=== PATIENT | female | born 1975 | race Caucasian/White ===

== ENCOUNTER 2020-02-01 10:25 | Inpatient (IN) | payer MEDICAID, SELFPAY ==
[2020-02-01] VITALS (12 sets, daily range): BP systolic 126–139; BP diastolic 70–89; PULSE 71–87; RESP 16–18; TEMP 36.4–37.1; O2SAT 92–100; BMI 32.1
--- NOTE | 2020-02-01 10:44 | W.ED.WEAKNES ---
Documented by User: SERGEY Carlisle 02/01/20 11:33 HPI - Weakness General: Chief complaint: Weakness Stated complaint: WEAKNESS N/V Time Seen by Provider: 02/01/20 10:36 History of Present Illness: HPI Narrative: Patient arrives via ambulance with complaint about leg and arm weakness. Says she thinks her potassium might be low. Has been nauseated she is not really vomiting. Says she is only been taking have her med because her thought me that was the cause of it and this been going on for the last 3 to 4 days. Complaint: generalized weakness Onset (ago): day(s) Duration: constant and progressively worsening Location: generalized Migration: none Severity: moderate Relieving factors: none Exacerbating factors: none Associated symptoms: Reports nausea; Denies chest pain, chills, easy bruising, fever(s) or headache(s) Review of Systems Const: Denies: fever(s), chills or body aches Eyes: Denies: change in vision or blurry vision ENMT: Denies: throat pain or nasal congestion Card: Denies: chest pain or dyspnea on exertion Resp: Denies: dyspnea, productive cough or non-productive cough GI: Reports: nausea Musc: Reports: muscle weakness; Denies: extremity pain Skin/Breast: Denies: rash Neuro: Denies: headache(s) Psych: Denies: anxiety or depression Lalo/Lymph: Denies: easy bruising PFSH ED PFSH: Medical History (Updated 02/01/20 @ 16:31 by Leonard Baker MD) Anxiety Back disorder Bipolar disorder Chronic back pain Depression Seizures Surgical History (Updated 02/01/20 @ 16:26 by Leonard Baker MD) H/O cervical spine surgery H/O knee surgery H/O shoulder surgery History of thyroid surgery Family History (Updated 02/01/20 @ 16:27 by Leonard Baker MD) Mother Cancer Breast cancer Father Arthritis Social History (Updated 02/01/20 @ 16:28 by Leonard Baker MD) Smoking and tobacco status: never smoked Alcohol intake: never Substance/Drug Use: never Household members: spouse Marital status: Number of children: 1 Female Reproductive History: Date of last menstrual period: 01/25/20 Physical Exam Const: COMMON NORMALS: no acute distress, average body habitus and patient oriented x3 HENMT: COMMON NORMALS: normocephalic HEAD & SCALP: normal to inspection and normocephalic FACE & SINUS: normal facial exam Eye: COMMON NORMALS: conjunctivae normal GENERAL EYE: appearance normal, both eyes and all related structures CONJUNCTIVA: Yes conjunctivae normal Neck/C-Spine: COMMON NORMALS: no JVD Chest: COMMONS NORMALS: normal inspection of the chest Resp: COMMON NORMALS: normal respiratory effort and clear to auscultation bilaterally AUSCULTATION: clear to auscultation bilaterally Cardio: COMMON NORMALS: no JVD, regular rate and regular rhythm RATE: regular rate RHYTHM: regular rhythm GI: COMMON NORMALS: Normal to inspection, nondistended, normoactive bowel sounds present Extremity: COMMON NORMALS: normal to inspection and full ROM Neuro: COMMON NORMALS: patient oriented x3, CN's II-XII intact bilaterally, moves all extremities and no focal motor deficits Course Vital Signs: Vital signs: Vital Signs Temperature 98.1 F 02/02/20 03:55 Pulse Rate 82 02/02/20 03:55 Respiratory Rate 16 02/02/20 03:55 Blood Pressure 97/64 02/02/20 03:55 Pulse Oximetry 97 02/02/20 03:55 MDM - Weakness Lab Data: Labs: Lab Results 02/01/20 02/01/20 02/01/20 Range/Units 09:31 09:31 09:31 WBC 6.6 (4.0-10.0) 10^3/ uL RBC 5.31 H (4.1-5.3) 10^6/u L Hgb 13.0 (11.5-15.3) g/dL Hct 40.3 (37.0-47.0) % MCV 75.9 L (81-99) fL MCH 24.5 L (28.0-34.0) pg MCHC 32.3 (30.0-36.0) g/dL RDW 22.0 H (12.1-15.1) % Plt Count 504 H (130-400) 10^3/c mm MPV 10.0 (7.4-10.4) fL Neut % (Auto) 62.6 % Lymph % (Auto) 19.8 % [place] % (Auto) 12.6 % Eos % (Auto) 3.6 % Baso % (Auto) 1.1 % Neut # (Auto) 4.14 (1.8-7.7) 10^3/u L Lymph # (Auto) 1.3 (0.8-4.8) 10^3/u L [place] # (Auto) 0.8 (0.2-0.9) 10^3/u L Eos # (Auto) 0.2 (0.0-0.8) 10^3/u L Baso # (Auto) 0.1 (0.0-0.1) 10^3/u L Nucleated RBC % (a uto) 0 % Nucleated RBCs # 0.0 /100WBC Sodium 136 (136-145) mmol/L Potassium 1.5 L* (3.5-5.1) mmol/L Chloride 104 (98-107) mmol/L Carbon Dioxide 15 L (22-29) mmol/L Anion Gap 18.5 (5-19) BUN 14 (6-20) mg/dL Creatinine 1.2 H (0.5-0.9) mg/dL GFR Calculation 49.0 L (90-130) mL/min Glucose 191 H (65-115) mg/dL Calculated Osmolal ity 283 L (285-295) mOsm/k g Calcium 9.6 (8.5-10.5) mg/dL Phosphorus (2.5-4.5) mg/dL Magnesium (1.7-2.3) mg/dL Total Bilirubin 0.3 (0.15-1.2) mg/dL AST 10 (0-32) U/L ALT 7 (0-33) U/L Alkaline Phosphata se 117 H (35-105) IU/L Total Protein 7.7 (6.6-8.7) g/dL Albumin 4.8 (3.5-5.2) g/dL Globulin 2.9 (1.3-4.6) g/dL Lipase 112 H (13-60) U/L TSH (0.27-4.20) uIU/ mL Free T4 (0.82-1.77) ng/d L 02/01/20 02/01/20 Range/Units 09:31 09:31 WBC (4.0-10.0) 10^3/ uL RBC (4.1-5.3) 10^6/u L Hgb (11.5-15.3) g/dL Hct (37.0-47.0) % MCV (81-99) fL MCH (28.0-34.0) pg MCHC (30.0-36.0) g/dL RDW (12.1-15.1) % Plt Count (130-400) 10^3/c mm MPV (7.4-10.4) fL Neut % (Auto) % Lymph % (Auto) % [place] % (Auto) % Eos % (Auto) % Baso % (Auto) % Neut # (Auto) (1.8-7.7) 10^3/u L Lymph # (Auto) (0.8-4.8) 10^3/u L [place] # (Auto) (0.2-0.9) 10^3/u L Eos # (Auto) (0.0-0.8) 10^3/u L Baso # (Auto) (0.0-0.1) 10^3/u L Nucleated RBC % (a uto) % Nucleated RBCs # /100WBC Sodium (136-145) mmol/L Potassium (3.5-5.1) mmol/L Chloride (98-107) mmol/L Carbon Dioxide (22-29) mmol/L Anion Gap (5-19) BUN (6-20) mg/dL Creatinine (0.5-0.9) mg/dL GFR Calculation (90-130) mL/min Glucose (65-115) mg/dL Calculated Osmolal ity (285-295) mOsm/k g Calcium (8.5-10.5) mg/dL Phosphorus 0.8 L* (2.5-4.5) mg/dL Magnesium 2.5 H (1.7-2.3) mg/dL Total Bilirubin (0.15-1.2) mg/dL AST (0-32) U/L ALT (0-33) U/L Alkaline Phosphata se (35-105) IU/L Total Protein (6.6-8.7) g/dL Albumin (3.5-5.2) g/dL Globulin (1.3-4.6) g/dL Lipase (13-60) U/L TSH 1.61 (0.27-4.20) uIU/ mL Free T4 1.16 (0.82-1.77) ng/d L EKG Data^: EKG 1: EKG interpretation date: 02/01/20 EKG interpretation time: 11:33 Interpretation: Normal sinus rhythm at 84 bpm PA interval is 142 ms QRS duration is 1 2 ms Discharge Plan Discharge Admit Provider: Leonard Baker Condition: Stable Discharge Date/Time: 02/01/20 14:03 Sign Out Sign Out Data: Patient Sign Out occurred on 02/01/20 at 13:57. Patient's care was discussed, and care was transferred from to Josafat Alfaro DO. 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 [employer] Fwd Exam Comprehensive Documented by User: Trey Pierson MD, [facility] [place] 02/01/20 23:06 HPI - Weakness General: Chief complaint: Weakness Stated complaint: WEAKNESS N/V Time Seen by Provider: 02/01/20 10:36 PFS ED PFSH: Medical History (Updated 02/01/20 @ 16:31 by Leonard Baker MD) Anxiety Back disorder Bipolar disorder Chronic back pain Depression Seizures Surgical History (Updated 02/01/20 @ 16:26 by Leonard Baker MD) H/O cervical spine surgery H/O knee surgery H/O shoulder surgery History of thyroid surgery Family History (Updated 02/01/20 @ 16:27 by Leonard Baker MD) Mother Cancer Breast cancer Father Arthritis Social History (Updated 02/01/20 @ 16:28 by Leonard Baker MD) Smoking and tobacco status: never smoked Alcohol intake: never Substance/Drug Use: never Household members: spouse Marital status: Number of children: 1 Course Vital Signs: Vital signs: Vital Signs Temperature 98.1 F 02/02/20 03:55 Pulse Rate 82 02/02/20 03:55 Respiratory Rate 16 02/02/20 03:55 Blood Pressure 97/64 02/02/20 03:55 Pulse Oximetry 97 02/02/20 03:55 MDM - Weakness Lab Data: Labs: Lab Results 02/01/20 02/01/20 02/01/20 Range/Units 09:31 09:31 09:31 WBC 6.6 (4.0-10.0) 10^3/ uL RBC 5.31 H (4.1-5.3) 10^6/u L Hgb 13.0 (11.5-15.3) g/dL Hct 40.3 (37.0-47.0) % MCV 75.9 L (81-99) fL MCH 24.5 L (28.0-34.0) pg MCHC 32.3 (30.0-36.0) g/dL RDW 22.0 H (12.1-15.1) % Plt Count 504 H (130-400) 10^3/c mm MPV 10.0 (7.4-10.4) fL Neut % (Auto) 62.6 % Lymph % (Auto) 19.8 % [place] % (Auto) 12.6 % Eos % (Auto) 3.6 % Baso % (Auto) 1.1 % Neut # (Auto) 4.14 (1.8-7.7) 10^3/u L Lymph # (Auto) 1.3 (0.8-4.8) 10^3/u L [place] # (Auto) 0.8 (0.2-0.9) 10^3/u L Eos # (Auto) 0.2 (0.0-0.8) 10^3/u L Baso # (Auto) 0.1 (0.0-0.1) 10^3/u L Nucleated RBC % (a uto) 0 % Nucleated RBCs # 0.0 /100WBC Sodium 136 (136-145) mmol/L Potassium 1.5 L* (3.5-5.1) mmol/L Chloride 104 (98-107) mmol/L Carbon Dioxide 15 L (22-29) mmol/L Anion Gap 18.5 (5-19) BUN 14 (6-20) mg/dL Creatinine 1.2 H (0.5-0.9) mg/dL GFR Calculation 49.0 L (90-130) mL/min Glucose 191 H (65-115) mg/dL Calculated Osmolal ity 283 L (285-295) mOsm/k g Calcium 9.6 (8.5-10.5) mg/dL Phosphorus (2.5-4.5) mg/dL Magnesium (1.7-2.3) mg/dL Total Bilirubin 0.3 (0.15-1.2) mg/dL AST 10 (0-32) U/L ALT 7 (0-33) U/L Alkaline Phosphata se 117 H (35-105) IU/L Total Protein 7.7 (6.6-8.7) g/dL Albumin 4.8 (3.5-5.2) g/dL Globulin 2.9 (1.3-4.6) g/dL Lipase 112 H (13-60) U/L TSH (0.27-4.20) uIU/ mL Free T4 (0.82-1.77) ng/d L 02/01/20 02/01/20 Range/Units 09:31 09:31 WBC (4.0-10.0) 10^3/ uL RBC (4.1-5.3) 10^6/u L Hgb (11.5-15.3) g/dL Hct (37.0-47.0) % MCV (81-99) fL MCH (28.0-34.0) pg MCHC (30.0-36.0) g/dL RDW (12.1-15.1) % Plt Count (130-400) 10^3/c mm MPV (7.4-10.4) fL Neut % (Auto) % Lymph % (Auto) % [place] % (Auto) % Eos % (Auto) % Baso % (Auto) % Neut # (Auto) (1.8-7.7) 10^3/u L Lymph # (Auto) (0.8-4.8) 10^3/u L [place] # (Auto) (0.2-0.9) 10^3/u L Eos # (Auto) (0.0-0.8) 10^3/u L Baso # (Auto) (0.0-0.1) 10^3/u L Nucleated RBC % (a uto) % Nucleated RBCs # /100WBC Sodium (136-145) mmol/L Potassium (3.5-5.1) mmol/L Chloride (98-107) mmol/L Carbon Dioxide (22-29) mmol/L Anion Gap (5-19) BUN (6-20) mg/dL Creatinine (0.5-0.9) mg/dL GFR Calculation (90-130) mL/min Glucose (65-115) mg/dL Calculated Osmolal ity (285-295) mOsm/k g Calcium (8.5-10.5) mg/dL Phosphorus 0.8 L* (2.5-4.5) mg/dL Magnesium 2.5 H (1.7-2.3) mg/dL Total Bilirubin (0.15-1.2) mg/dL AST (0-32) U/L ALT (0-33) U/L Alkaline Phosphata se (35-105) IU/L Total Protein (6.6-8.7) g/dL Albumin (3.5-5.2) g/dL Globulin (1.3-4.6) g/dL Lipase (13-60) U/L TSH 1.61 (0.27-4.20) uIU/ mL Free T4 1.16 (0.82-1.77) ng/d L Discharge Plan Discharge Admit Provider: Leonard Baker Condition: Stable Discharge Date/Time: 02/01/20 14:03 Sign Out Sign Out Data: Patient Sign Out occurred on 02/01/20 at 13:57. Patient's care was discussed, and care was transferred from to Josafat Alfaro DO. 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 [employer] Fwd Exam Comprehensive Documented by User: Josafat Alfaro DO 02/02/20 06:31 HPI - Weakness General: Chief complaint: Weakness Stated complaint: WEAKNESS N/V Time Seen by Provider: 02/01/20 10:36 PFSH ED PFSH: Medical History (Updated 02/01/20 @ 16:31 by Leonard Baker MD) Anxiety Back disorder Bipolar disorder Chronic back pain Depression Seizures Surgical History (Updated 02/01/20 @ 16:26 by Leonard Baker MD) H/O cervical spine surgery H/O knee surgery H/O shoulder surgery History of thyroid surgery Family History (Updated 02/01/20 @ 16:27 by Leonard Baker MD) Mother Cancer Breast cancer Father Arthritis Social History (Updated 02/01/20 @ 16:28 by Leonard Baker MD) Smoking and tobacco status: never smoked Alcohol intake: never Substance/Drug Use: never Household members: spouse Marital status: Number of children: 1 Course Vital Signs: Vital signs: Vital Signs Temperature 98.1 F 02/02/20 03:55 Pulse Rate 82 02/02/20 03:55 Respiratory Rate 16 02/02/20 03:55 Blood Pressure 97/64 02/02/20 03:55 Pulse Oximetry 97 02/02/20 03:55 MDM - Weakness MDM Narrative: Medical decision making narrative: Patient inadvertently assigned to me in the queue I did not see this patient or participate in her care Lab Data: Labs: Lab Results 02/01/20 02/01/20 02/01/20 Range/Units 09:31 09:31 09:31 WBC 6.6 (4.0-10.0) 10^3/ uL RBC 5.31 H (4.1-5.3) 10^6/u L Hgb 13.0 (11.5-15.3) g/dL Hct 40.3 (37.0-47.0) % MCV 75.9 L (81-99) fL MCH 24.5 L (28.0-34.0) pg MCHC 32.3 (30.0-36.0) g/dL RDW 22.0 H (12.1-15.1) % Plt Count 504 H (130-400) 10^3/c mm MPV 10.0 (7.4-10.4) fL Neut % (Auto) 62.6 % Lymph % (Auto) 19.8 % [place] % (Auto) 12.6 % Eos % (Auto) 3.6 % Baso % (Auto) 1.1 % Neut # (Auto) 4.14 (1.8-7.7) 10^3/u L Lymph # (Auto) 1.3 (0.8-4.8) 10^3/u L [place] # (Auto) 0.8 (0.2-0.9) 10^3/u L Eos # (Auto) 0.2 (0.0-0.8) 10^3/u L Baso # (Auto) 0.1 (0.0-0.1) 10^3/u L Nucleated RBC % (a uto) 0 % Nucleated RBCs # 0.0 /100WBC Sodium 136 (136-145) mmol/L Potassium 1.5 L* (3.5-5.1) mmol/L Chloride 104 (98-107) mmol/L Carbon Dioxide 15 L (22-29) mmol/L Anion Gap 18.5 (5-19) BUN 14 (6-20) mg/dL Creatinine 1.2 H (0.5-0.9) mg/dL GFR Calculation 49.0 L (90-130) mL/min Glucose 191 H (65-115) mg/dL Calculated Osmolal ity 283 L (285-295) mOsm/k g Calcium 9.6 (8.5-10.5) mg/dL Phosphorus (2.5-4.5) mg/dL Magnesium (1.7-2.3) mg/dL Total Bilirubin 0.3 (0.15-1.2) mg/dL AST 10 (0-32) U/L ALT 7 (0-33) U/L Alkaline Phosphata se 117 H (35-105) IU/L Total Protein 7.7 (6.6-8.7) g/dL Albumin 4.8 (3.5-5.2) g/dL Globulin 2.9 (1.3-4.6) g/dL Lipase 112 H (13-60) U/L TSH (0.27-4.20) uIU/ mL Free T4 (0.82-1.77) ng/d L 02/01/20 02/01/20 Range/Units 09:31 09:31 WBC (4.0-10.0) 10^3/ uL RBC (4.1-5.3) 10^6/u L Hgb (11.5-15.3) g/dL Hct (37.0-47.0) % MCV (81-99) fL MCH (28.0-34.0) pg MCHC (30.0-36.0) g/dL RDW (12.1-15.1) % Plt Count (130-400) 10^3/c mm MPV (7.4-10.4) fL Neut % (Auto) % Lymph % (Auto) % [place] % (Auto) % Eos % (Auto) % Baso % (Auto) % Neut # (Auto) (1.8-7.7) 10^3/u L Lymph # (Auto) (0.8-4.8) 10^3/u L [place] # (Auto) (0.2-0.9) 10^3/u L Eos # (Auto) (0.0-0.8) 10^3/u L Baso # (Auto) (0.0-0.1) 10^3/u L Nucleated RBC % (a uto) % Nucleated RBCs # /100WBC Sodium (136-145) mmol/L Potassium (3.5-5.1) mmol/L Chloride (98-107) mmol/L Carbon Dioxide (22-29) mmol/L Anion Gap (5-19) BUN (6-20) mg/dL Creatinine (0.5-0.9) mg/dL GFR Calculation (90-130) mL/min Glucose (65-115) mg/dL Calculated Osmolal ity (285-295) mOsm/k g Calcium (8.5-10.5) mg/dL Phosphorus 0.8 L* (2.5-4.5) mg/dL Magnesium 2.5 H (1.7-2.3) mg/dL Total Bilirubin (0.15-1.2) mg/dL AST (0-32) U/L ALT (0-33) U/L Alkaline Phosphata se (35-105) IU/L Total Protein (6.6-8.7) g/dL Albumin (3.5-5.2) g/dL Globulin (1.3-4.6) g/dL Lipase (13-60) U/L TSH 1.61 (0.27-4.20) uIU/ mL Free T4 1.16 (0.82-1.77) ng/d L Discharge Plan Discharge Admit Provider: Leonard Baker Condition: Stable Discharge Date/Time: 02/01/20 14:03 Sign Out Sign Out Data: Patient Sign Out occurred on 02/01/20 at 13:57. Patient's care was discussed, and care was transferred from to Josafat Alfaro DO. 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 [employer] Fwd Exam Comprehensive
--- NOTE | 2020-02-01 10:46 | XRR_ITS ---
PROCEDURE INFORMATION: Exam: XR Chest, 1 View Exam date and time: 02/01/2020 11:19 AM Age: 45 years old Clinical indication: Other: Weakness/n/v; Patient HX: C/O weakness, nausea and vomiting TECHNIQUE: Imaging protocol: XR of the chest Views: 1 view. COMPARISON: No relevant prior studies available. FINDINGS: Lungs: Lungs are well aerated without a focal area of consolidation. Pleural space: Unremarkable. No pleural effusion. No pneumothorax. Heart/Mediastinum: Unremarkable. No cardiomegaly. Bones/joints: Prior surgical fixation of the caudal aspect of the cervical spine. XR/XR chest 1V portable [id number] IMPRESSION: Lungs are well aerated without a focal area of consolidation.
--- NOTE | 2020-02-01 10:46 | ECG_ITS ---
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 Measurements Intervals [place] Rate: 84 P: 48 MS: 142 QRS: 17 QRSD: 110 T: 35 QT: 414 QTc: 490 Interpretive Statements SINUS RHYTHM NONSPECIFIC ST & T-WAVE ABNORMALITY No previous ECG available for comparison Electronically Signed On 02-02-2020 0:20:26 CDT by Joselito Carlisle M.D. [id number]
[2020-02-01 11:01] LABS: Basophils # 0.1 10^3/uL (0.0-0.1); Basophils % 1.1 %; Eosinophils # 0.2 10^3/uL (0.0-0.8); Eosinophils % 3.6 %; Hematocrit 40.3 % (37.0-47.0); Lymphocytes # 1.3 10^3/uL (0.8-4.8); Lymphocytes % 19.8 %; Mean Corpuscular HGB Conc 32.3 g/dL (30.0-36.0); Mean Corpuscular Hemoglobin 24.5 pg (28.0-34.0); Mean Corpuscular Volume 75.9 fL (81-99); Monocytes # 0.8 10^3/uL (0.2-0.9); Monocytes % 12.6 %; Neutrophils # 4.14 10^3/uL (1.8-7.7); Neutrophils % 62.6 %; Nucleated Red Blood Cells % 0 %; Platelet Count 504 10^3/cmm (130-400); Red Blood Count 5.31 10^6/uL (4.1-5.3); White Blood Count 6.6 10^3/uL (4.0-10.0)
[2020-02-01 11:26] LABS: Alanine Aminotransferase 7 U/L (0-33); Albumin Level 4.8 g/dL (3.5-5.2); Alkaline Phosphatase 117 IU/L (35-105); Anion Gap 18.5 (5-19); Aspartate Amino Transferase 10 U/L (0-32); Blood Urea Nitrogen 14 mg/dL (6-20); Calcium 9.6 mg/dL (8.5-10.5); Carbon Dioxide 15 mmol/L (22-29); Chloride 104 mmol/L (98-107); Globulin 2.9 g/dL (1.3-4.6); Glucose 191 mg/dL (65-115); Osmolality Calculated 283 mOsm/kg (285-295); Sodium 136 mmol/L (136-145); Total Bilirubin 0.3 mg/dL (0.15-1.2); Total Protein 7.7 g/dL (6.6-8.7)
[2020-02-01 11:36] LABS: Potassium 1.5 mmol/L (3.5-5.1)
[2020-02-01] MEDS: ondansetron 2 mg/ML SDV 2 mL 4 MG IVP (11:59)
[2020-02-01] MEDS: potassium chloride premix 40 MEQ/100 ML PREMIX 25 MEQ IV (11:59)
[2020-02-01 12:01] LABS: Lipase 112 U/L (13-60)
[2020-02-01 12:42] LABS: Magnesium 2.5 mg/dL (1.7-2.3)
[2020-02-01 12:46] LABS: Free T4 Free Thyroxine 1.16 ng/dL (0.82-1.77); Thyroid Stimulating Hormone 1.61 uIU/mL (0.27-4.20)
[2020-02-01 13:16] LABS: Phosphorus 0.8 mg/dL (2.5-4.5)
[2020-02-01 14:33] LABS: Add Urine Microscopic? YES; Bilirubin Urine Neg (NEGATIVE); Blood Urine 2+ (Negative); Glucose Urine UA Norm (Normal); Ketones Urine Negative (Negative); Leukocyte Esterase Urine Negative (Negative); Nitrate Urine Negative (Negative); Protein Urine 1+ (Negative); Specific Gravity, Urine 1.015 (1.005-1.030); Urine Appearance Clear (CLEAR); Urine Color Yellow (Yellow); Urobilinogen Urine Neg (Negative); pH Urine 6 (5-7)
[2020-02-01 14:34] LABS: Add Urine Culture? Yes; Bacteria Urine 1+; Squamous Epithelial Cell Urine 0-4 (0-5); WBC Urine 0-4 /hpf (0-5)
[2020-02-01 15:22] LABS: Urine Random Potassium 19 mmol/L
--- NOTE | 2020-02-01 16:16 | P.HP_ITS ---
Providers/Chief Complaint Admitting Physician: Leonard Baker MD Chief Complaint: WEAKNESS N/V History of Present Illness Mishel Kellogg is a 45 year old female presents to emergency department with generalized weakness, nausea and vomiting and right upper quadrant abdominal pain over the last 1 week. Reports that she had similar signs and symptoms 4 months ago when she was hospitalized in [place] and had severe hypokalemia. At that time Topamax felt to play a role and it was discontinued. She had upper endoscopy during that hospitalization but does not report any findings at that time. She did not have colonoscopy. There was a concern for GI bleed. Patient is menstruating and her last menstrual period was approximately 1 week ago. She had cholecystectomy previously performed along with tubal ligation. She has borderline bipolar disorder, depression and anxiety that being managed by Dr. Everett. She has history of grand mal seizure during time of severe urinary tract infection previously and she is taking Keppra since then. She is on oral opiate medications and reports that recently doctors have been tr emani to decrease amount she takes. In emergency department patient received 40 meq of potassium at 12 PM. Review of Systems Const: Denies: fever(s) or chills Eyes: Denies: change in vision ENMT: Denies: throat pain or change in hearing Card: Denies: chest pain, edema or lightheadedness Resp: Denies: dyspnea or productive cough GI: Reports: abdominal pain (Right upper quadrant constant, mild nagging pain.), nausea, vomiting and constipation (Reports that her last bowel movement was approximately 4 weeks ago.); Denies: dysphagia, diarrhea, hematochezia or melena : Denies: difficulty voiding Musc: Denies: joint pain or joint swelling Skin/Breast: Denies: rash or erythema Neuro: Denies: headache(s) or weakness in extremities Psych: Denies: depression or suicidal ideation Endo: Denies: excessive sweating Lalo/Lymph: Denies: easy bleeding or tender lymph nodes All/Imm: Denies: throat swelling Medications/Allergies Home Medications Medication Instructions Recorded Confirmed Last Taken Type baclofen 20 mg PO BID 02/01/20 02/01/20 01/31/20 History buspirone 5 mg PO TID 02/01/20 02/01/20 01/31/20 History diphenhydramine HCl [Benadryl] 50 mg PO Q4H PRN 02/01/20 02/01/20 01/31/20 History famotidine 20 mg PO BID 02/01/20 02/01/20 01/31/20 History gabapentin 200 mg PO BID 02/01/20 02/01/20 01/31/20 History hydromorphone 8 mg PO BID 02/01/20 02/01/20 01/31/20 History hydroxyzine pamoate [Vistaril] 50 mg PO TID PRN 02/01/20 02/01/20 Unknown History ibuprofen 1,600 mg PO BID PRN 02/01/20 02/01/20 01/31/20 History levetiracetam 500 mg PO BID 02/01/20 02/01/20 Unknown History levomilnacipran [Fetzima] 20 mg PO DAILY 02/01/20 02/01/20 01/31/20 History levothyroxine 150 mcg PO DAILY 02/01/20 02/01/20 01/31/20 History levothyroxine See Rx Instructions .ROUTE .COMPLEX 02/01/20 02/01/20 Unknown History meclizine 25 - 50 mg PO TID PRN 02/01/20 02/01/20 01/31/20 History morphine 15 mg PO Q12H PRN 02/01/20 02/01/20 01/31/20 History ondansetron HCl 8 mg PO Q6H PRN 02/01/20 02/01/20 02/01/20 History prazosin 2 mg PO BEDTIME 02/01/20 02/01/20 01/31/20 History quetiapine 300 mg PO BEDTIME 02/01/20 02/01/20 01/31/20 History rizatriptan [Maxalt] See Rx Instructions .ROUTE .COMPLEX 02/01/20 02/01/20 Unknown History Allergies Allergy/AdvReac Type Severity Reaction Status Date / Time haloperidol [From Haldol] Allergy Unknown Verified 02/01/20 11:24 hydroxyzine [From Vistaril] Allergy Unknown Verified 02/01/20 11:24 meperidine [From Demerol] Allergy Unknown Verified 02/01/20 11:24 midazolam [From Versed] Allergy Unknown Verified 02/01/20 11:24 olanzapine [From Zyprexa] Allergy Unknown Verified 02/01/20 11:24 prochlorperazine Allergy Unknown Verified 02/01/20 11:24 [From Compazine] promethazine Allergy Unknown Verified 02/01/20 11:24 anti-nausea meds except Allergy Unknown Uncoded 02/01/20 11:11 zofran PFSH Acute PFSH: Medical History (Updated 02/01/20 @ 16:31 by Leonard Baker MD) Anxiety Back disorder Bipolar disorder Chronic back pain Depression Seizures Surgical History (Updated 02/01/20 @ 16:26 by Leonard Baker MD) H/O cervical spine surgery H/O knee surgery H/O shoulder surgery History of thyroid surgery Family History (Updated 02/01/20 @ 16:27 by Leonard Baker MD) Mother Cancer Breast cancer Father Arthritis Social History (Updated 02/01/20 @ 16:28 by Leonard Baker MD) Smoking and tobacco status: never smoked Alcohol intake: never Substance/Drug Use: never Household members: spouse Marital status: Number of children: 1 Female Reproductive History: Date of last menstrual period: 01/25/20 Vitals/I&O/Wt Last Vital Signs Temp 98.4 F 02/01/20 15:30 Pulse 74 02/01/20 15:30 Resp 18 02/01/20 15:30 BP 137/89 02/01/20 15:30 Pulse Ox 92 02/01/20 15:30 02/01/20 02/01/20 02/01/20 06:59 14:59 22:59 Output Total 900 / 900 Balance -900 / -900 Weight last 48 hrs Weight 82.1 kg Physical Exam Const: COMMON NORMALS: no acute distress and patient oriented x3 OTHER: Lethargic with very dry mucous membranes. HENMT: COMMON NORMALS: normocephalic and atraumatic HEAD & SCALP: normocephalic and atraumatic Eye: COMMON NORMALS: EOMs intact bilaterally, conjunctivae normal and no scleral icterus CONJUNCTIVA: Yes conjunctivae normal Neck/C-Spine: COMMON NORMALS: no lymphadenopathy and no meningeal signs Lymph: LYMPHATIC: no lymphadenopathy noted Chest: COMMONS NORMALS: normal palpation of entire chest wall Resp: COMMON NORMALS: No use of accessory muscles and clear to auscultation bilaterally AUSCULTATION: clear to auscultation bilaterally Cardio: COMMON NORMALS: regular rate, regular rhythm and No murmurs present (Cardio) RATE: regular rate RHYTHM: regular rhythm OTHER: No lower extremity edema GI: COMMON NORMALS: Soft to palpation PALPATION: Yes Soft to palpation RECTAL EXAM: deferred OTHER: Tender at right upper quadrant. : COMMON NORMALS: Yes no CVA tenderness BLADDER/KIDNEY EXAM: Yes no CVA tenderness Back/Pelvis: COMMON NORMALS: no CVA tenderness and thoracic and lumbar spine normal to inspection Extremity: COMMON NORMALS: normal to inspection and capillary refill normal Neuro: COMMON NORMALS: patient oriented x3 and no focal motor deficits (But generally very weak) SENSORIUM/ORIENTATION: Yes alert MENINGEAL SIGNS: Yes no meningeal signs Psych: COMMON NORMALS: mental status grossly normal, Normal thought process present and cooperative THOUGHT PROCESS: Normal thought process present Skin: COMMON NORMALS: no rashes or lesions noted GENERAL SKIN EXAM: no rashes or lesions noted Data : 02/01/20 09:31 02/01/20 09:31 A&P Assessment and plan (1) Chronic back pain: Status: Acute (2) Microcytosis: Was most likely anemia just not apparent because of severe dehydration. Status: Acute (3) Dehydration: Status: Acute (4) Hypokalemia: Status: Acute (5) NSAID induced gastritis: Status: Acute (6) Hypophosphatemia: Status: Acute (7) Acute kidney injury: Status: Acute Additional A&P Information PLAN: Discontinue ibuprofen and start patient on high-dose PPI. I think NSAID induced gastritis is likely the reason of patient's decreased oral intake, nausea and vomiting leading to hypokalemia. We will give patient potassium phosphate along with LR IV hydration. Monitor urinary output. Initial anemia work-up. Reconcile medications and continue patient's opiate pain medications for chronic back pain. Physical and occupational therapy. Given significant microcytosis and concern for GI bleed will avoid Lovenox for now and use SCDs for DVT prophylaxis. Attestations Medical Necessity Statement*: Patient with severe hypokalemia and generalized weakness requires close inpatient monitoring and treatment. I expect patient will require more than 2 midnights. Time Spent in Patient Care: Greater than 35 minutes Coding Level of Care Code Acute Asset Specialist for [facility] Fwd Diagnoses Chronic back pain M54.9; G89.29 Microcytosis R71.8 Dehydration E86.0 Hypokalemia E87.6 NSAID induced gastritis K29.60; T39.395A Hypophosphatemia E83.39 Acute kidney injury N17.9
[2020-02-01] MEDS: lactated ringers 1,000 ML 75 ML IV (17:21)
[2020-02-01] MEDS: pantoprazole 40 mg SDV IVP (17:24)
[2020-02-01] MEDS: gabapentin 100 mg Capsule 200 MG PO (18:32)
[2020-02-01] MEDS: levETIRAcetam 500 mg Tablet PO (18:33)
[2020-02-01] MEDS: baclofen 10 mg Tablet 20 MG PO (18:33)
[2020-02-01] MEDS: sodium chloride 0.9% 1,000 ML 75 ML IV (21:05)
[2020-02-01] MEDS: quetiapine 300 mg Tablet PO (21:05)
[2020-02-01] MEDS: BuSPIRONE 5 mg Tablet PO (21:05)
[2020-02-01] MEDS: prazosin 1 mg Capsule 2 MG PO (21:05)
[2020-02-01] MEDS: sennosides 8.6 mg Tablet 17.2 MG PO (21:20)
[2020-02-02] VITALS (8 sets, daily range): BP systolic 97–128; BP diastolic 64–83; PULSE 82–87; RESP 16–20; TEMP 36.4–37; O2SAT 97–98
[2020-02-02] MEDS: pantoprazole 40 mg SDV IVP ×2 (05:39→18:27)
[2020-02-02 06:02] LABS: Basophils # 0.1 10^3/uL (0.0-0.1); Basophils % 0.7 %; Eosinophils # 0.2 10^3/uL (0.0-0.8); Eosinophils % 2.1 %; Hematocrit 31.9 % (37.0-47.0); Hemoglobin 10.2 g/dL (11.5-15.3); Lymphocytes # 1.4 10^3/uL (0.8-4.8); Lymphocytes % 16.4 %; Mean Corpuscular Hemoglobin 24.8 pg (28.0-34.0); Mean Corpuscular Volume 77.4 fL (81-99); Mean Platelet Volume 9.3 fL (7.4-10.4); Monocytes % 11.3 %; Neutrophils # 5.87 10^3/uL (1.8-7.7); Neutrophils % 69.3 %; Nucleated Red Blood Cells % 0 %; Platelet Count 404 10^3/cmm (130-400); Red Blood Count 4.12 10^6/uL (4.1-5.3); Red Cell Distribution Width 22.6 % (12.1-15.1); White Blood Count 8.5 10^3/uL (4.0-10.0)
[2020-02-02 06:33] LABS: Alanine Aminotransferase 6 U/L (0-33); Albumin Level 3.5 g/dL (3.5-5.2); Alkaline Phosphatase 84 IU/L (35-105); Anion Gap 12.8 (5-19); Aspartate Amino Transferase 9 U/L (0-32); Blood Urea Nitrogen 8 mg/dL (6-20); Calcium 7.2 mg/dL (8.5-10.5); Carbon Dioxide 14 mmol/L (22-29); Chloride 115 mmol/L (98-107); Globulin 2.7 g/dL (1.3-4.6); Glomerular Filtration Rate 78.3 mL/min (90-130); Glucose 124 mg/dL (65-115); Magnesium 2.2 mg/dL (1.7-2.3); Osmolality Calculated 287 mOsm/kg (285-295); Phosphorus 5.4 mg/dL (2.5-4.5); Sodium 140 mmol/L (136-145); Total Bilirubin 0.3 mg/dL (0.15-1.2); Total Protein 6.2 g/dL (6.6-8.7)
[2020-02-02 06:41] LABS: Potassium 1.8 mmol/L (3.5-5.1)
[2020-02-02 06:47] LABS: Folate Level 3.4 ng/mL (4.8-37.3)
[2020-02-02 06:49] LABS: 25 Hydroxy Vitamin D 14 ng/mL (30-100); Ferritin 9 ng/mL (15-150); Iron 18 ug/dL (37-145); Percent Saturation 6.2 % (20-50); Total Iron Binding Capacity 288 mcg/dl; Unsaturated Iron Binding 270 ug/dL (112-347); Vitamin B12 395 pg/mL (232-1245)
[2020-02-02] MEDS: BuSPIRONE 5 mg Tablet PO ×3 (08:45→21:21)
[2020-02-02] MEDS: gabapentin 100 mg Capsule 200 MG PO ×2 (08:45→18:25)
[2020-02-02] MEDS: levothyroxine 150 mcg Tablet PO (08:46)
[2020-02-02] MEDS: levETIRAcetam 500 mg Tablet PO ×2 (08:46→18:26)
[2020-02-02] MEDS: baclofen 10 mg Tablet 20 MG PO ×2 (08:46→18:24)
[2020-02-02] MEDS: sodium chloride 0.9% 1,000 ML 75 ML IV ×2 (10:32→23:19)
[2020-02-02] MEDS: potassium chloride premix 40 MEQ/100 ML PREMIX 25 MEQ IV ×3 (11:16→23:03)
--- NOTE | 2020-02-02 16:01 | P.PN_ITS ---
Subjective Subjective: Interval history: Patient reports doing better but still remains quite weak throughout. Denies shortness of breath, chest pain or abdominal pain. Her potassium continues to be low despite significant replacement. She has concurrent deficiency of iron, vitamin D, folic acid level. Patient has poor dentition but denies induced vomiting or previous diagnosis of bulimia. Vitals/I&O/Wt Last Vital Signs Temp 97.9 F 02/02/20 12:00 Pulse 84 02/02/20 12:00 Resp 20 H 02/02/20 12:00 BP 116/79 02/02/20 12:00 Pulse Ox 98 02/02/20 12:00 02/02/20 02/02/20 02/02/20 06:59 14:59 22:59 Intake Total 1387.5 / 1860.0 1221 / 1221 Output Total 800 / 1700 Balance 587.5 / 160.0 1221 / 1221 Weight last 48 hrs Weight 82.1 kg Physical Exam Const: COMMON NORMALS: no acute distress and patient oriented x3 Resp: COMMON NORMALS: normal respiratory effort and clear to auscultation bilaterally AUSCULTATION: clear to auscultation bilaterally Cardio: COMMON NORMALS: regular rate, regular rhythm and S2 normal heart sound present RATE: regular rate RHYTHM: regular rhythm HEART SOUNDS: S2 normal heart sound present OTHER: No lower extremity edema GI: COMMON NORMALS: Normal to inspection, nondistended, normoactive bowel sounds present, Soft to palpation and non-tender PALPATION: Yes Soft to palpation Neuro: COMMON NORMALS: patient oriented x3 and no focal motor deficits Data : 02/02/20 05:24 02/02/20 05:24 A&P Assessment and plan (1) Chronic back pain: Status: Acute (2) Microcytosis: Was most likely anemia just not apparent because of severe dehydration. Status: Acute (3) Dehydration: Status: Acute (4) Hypokalemia: Status: Acute (5) NSAID induced gastritis: Status: Acute (6) Hypophosphatemia: Status: Acute (7) Acute kidney injury: Status: Acute Additional A&P Information PLAN: Continue with PPI. Continue potassium replacement. Will give 1 dose of IV Venofer. Start patient on folic acid and vitamin D. Will obtain urine electrolytes including potassium. Gettleman syndrome is a possibility. Continue physical therapy. Attestations Medical Necessity Statement*: Patient with severe hypokalemia requires close inpatient monitoring and treatment. Time Spent in Patient Care: 16 - 35 minutes Coding Level of Care Code Acute Orthotic And Prosthetic Technician for g Fwd Diagnoses Chronic back pain M54.9; G89.29 Microcytosis R71.8 Dehydration E86.0 Hypokalemia E87.6 NSAID induced gastritis K29.60; T39.395A Hypophosphatemia E83.39 Acute kidney injury N17.9
--- NOTE | 2020-02-02 17:33 | PC.PT ---
Patient declined physical therapy evaluation today, and out of bed, ?2 attempts, states will try tomorrow.
[2020-02-02] MEDS: ergocalciferol (vitamin D2) 50,000 Unit Capsule 50000 UNIT PO (18:27)
[2020-02-02] MEDS: folic acid 1 mg Tablet PO (18:27)
[2020-02-02 19:04] LABS: Potassium, Radom Urine 9 mmol/L; Urine Creatinine 24 mg/dL (28-217); Urine Random Sodium 23 mmol/L
[2020-02-02 19:09] LABS: Urine Random Chloride 16 mmol/L
[2020-02-02 19:40] LABS: Total Protein, Random Urine 12.3 mg/dL (0.0-20.0)
[2020-02-02 20:37] LABS: Urea Nitrogen,Urine Random 79 mg/dL
[2020-02-02] MEDS: iron sucrose 200 MG in sodium chloride 0.9% (100 ml) 100 ML 220 MG IV (21:20)
[2020-02-02] MEDS: sennosides 8.6 mg Tablet 17.2 MG PO (21:21)
[2020-02-02] MEDS: quetiapine 300 mg Tablet PO (21:21)
[2020-02-02] MEDS: prazosin 1 mg Capsule 2 MG PO (21:21)
[2020-02-02] MEDS: morphine ER (12 HR) 15 mg Tablet PO (21:28)
[2020-02-02] MEDS: lidocaine 1% INJ 20 mL 5 ML IV (23:04)
[2020-02-03] VITALS (8 sets, daily range): BP systolic 103–136; BP diastolic 64–77; PULSE 64–92; RESP 18–20; TEMP 36.3–37; O2SAT 92–98
[2020-02-03] MEDS: lidocaine 1% INJ 20 mL 5 ML IV (03:59)
[2020-02-03] MEDS: potassium chloride premix 40 MEQ/100 ML PREMIX 25 MEQ IV ×5 (03:59→20:32)
[2020-02-03 04:57] LABS: Basophils % 0.6 %; Eosinophils # 0.2 10^3/uL (0.0-0.8); Eosinophils % 2.8 %; Hematocrit 27.6 % (37.0-47.0); Hemoglobin 8.7 g/dL (11.5-15.3); Lymphocytes # 1.9 10^3/uL (0.8-4.8); Lymphocytes % 28.8 %; Mean Corpuscular HGB Conc 31.5 g/dL (30.0-36.0); Mean Corpuscular Hemoglobin 24.7 pg (28.0-34.0); Mean Corpuscular Volume 78.4 fL (81-99); Mean Platelet Volume 9.3 fL (7.4-10.4); Monocytes # 0.8 10^3/uL (0.2-0.9); Monocytes % 11.5 %; Neutrophils # 3.66 10^3/uL (1.8-7.7); Nucleated Red Blood Cells % 0 %; Platelet Count 335 10^3/cmm (130-400); Red Blood Count 3.52 10^6/uL (4.1-5.3); Red Cell Distribution Width 23.2 % (12.1-15.1); White Blood Count 6.5 10^3/uL (4.0-10.0)
[2020-02-03 05:18] LABS: Alanine Aminotransferase < 5 U/L (0-33); Albumin Level 2.9 g/dL (3.5-5.2); Alkaline Phosphatase 71 IU/L (35-105); Anion Gap 11.5 (5-19); Aspartate Amino Transferase 11 U/L (0-32); Blood Urea Nitrogen 5 mg/dL (6-20); Calcium 6.8 mg/dL (8.5-10.5); Carbon Dioxide 15 mmol/L (22-29); Chloride 120 mmol/L (98-107); Globulin 2.2 g/dL (1.3-4.6); Glomerular Filtration Rate 91.3 mL/min (90-130); Glucose 96 mg/dL (65-115); Osmolality Calculated 294 mOsm/kg (285-295); Phosphorus 3.2 mg/dL (2.5-4.5); Sodium 144 mmol/L (136-145); Total Bilirubin 0.2 mg/dL (0.15-1.2); Total Protein 5.1 g/dL (6.6-8.7)
[2020-02-03] MEDS: pantoprazole 40 mg SDV IVP ×2 (05:28→16:06)
[2020-02-03 05:31] LABS: Potassium 2.5 mmol/L (3.5-5.1)
--- NOTE | 2020-02-03 08:09 | PC.OT ---
OT EVALUATION HELD K LEVEL IS CRITICAL. THERAPY EVALUATION CONTRAINDICATED AT THIS TIME.
[2020-02-03] MEDS: BuSPIRONE 5 mg Tablet PO ×3 (09:09→20:34)
[2020-02-03] MEDS: gabapentin 100 mg Capsule 200 MG PO ×2 (09:09→17:55)
[2020-02-03] MEDS: folic acid 1 mg Tablet PO ×2 (09:09→17:55)
[2020-02-03] MEDS: baclofen 10 mg Tablet 20 MG PO ×2 (09:09→17:54)
[2020-02-03] MEDS: levETIRAcetam 500 mg Tablet PO ×2 (09:10→17:55)
[2020-02-03] MEDS: levothyroxine 150 mcg Tablet PO (09:10)
--- NOTE | 2020-02-03 11:34 | P.PN_ITS ---
Subjective Subjective: Interval history: Patient reports further improvement. Denies shortness of breath or chest pain. Reports minimal right upper quadrant abdominal discomfort. Had no bowel movement yet but passes gas. Denies being nauseous. Tolerates clear fluids. Reports that she had upper endoscopy at [facility] in October this year and reports that there were no significant findings. Urine potassium is in normal range. She denies being on any diet. Potassium is improved and up to 2.5. Vitals/I&O/Wt Last Vital Signs Temp 98.1 F 02/03/20 11:22 Pulse 76 02/03/20 11:22 Resp 20 H 02/03/20 11:22 BP 130/64 02/03/20 11:22 Pulse Ox 93 02/03/20 11:22 02/02/20 02/03/20 02/03/20 22:59 06:59 14:59 Intake Total 680 / 1901 1538.75 / 3439.75 184.167 / 184.167 Output Total 2700 / 2700 880 / 3580 650 / 650 Balance -2020 / -799 658.75 / -140.25 -465.833 / -465.833 Physical Exam Const: COMMON NORMALS: no acute distress and patient oriented x3 Resp: COMMON NORMALS: normal respiratory effort and clear to auscultation bilaterally AUSCULTATION: clear to auscultation bilaterally Cardio: COMMON NORMALS: regular rate, regular rhythm and S2 normal heart sound present RATE: regular rate RHYTHM: regular rhythm HEART SOUNDS: S2 normal heart sound present OTHER: No lower extremity edema GI: COMMON NORMALS: Normal to inspection, nondistended, normoactive bowel sounds present, Soft to palpation and non-tender PALPATION: Yes Soft to palpation Neuro: COMMON NORMALS: patient oriented x3 and no focal motor deficits Data : 02/03/20 04:28 02/03/20 04:28 Micro: Microbiology 02/01/20 13:10 Urine Culture - Preliminary Urine,Clean Catch A&P Assessment and plan (1) Chronic back pain: Status: Acute (2) Microcytosis: Was most likely anemia just not apparent because of severe dehydration. Status: Acute (3) Dehydration: Status: Acute (4) Hypokalemia: Status: Acute (5) NSAID induced gastritis: Status: Acute (6) Hypophosphatemia: Status: Acute (7) Acute kidney injury: Status: Acute Additional A&P Information PLAN: Continue current monitoring and treatment and continue with replating potassium. 40 mEq every 4 hours for 4 more doses. Will start small dose spironolactone. Continue with physical therapy. Attestations Medical Necessity Statement*: Patient with severe hypokalemia requires close inpatient monitoring and treatment. Time Spent in Patient Care: 16 - 35 minutes Coding Level of Care Code Acute Sanitary Aide for [facility] Fwd Diagnoses Chronic back pain M54.9; G89.29 Microcytosis R71.8 Dehydration E86.0 Hypokalemia E87.6 NSAID induced gastritis K29.60; T39.395A Hypophosphatemia E83.39 Acute kidney injury N17.9
[2020-02-03] MEDS: spironolactone 25 mg Tablet 12.5 MG PO (12:02)
[2020-02-03] MEDS: sodium chloride 0.9% 1,000 ML 75 ML IV (12:03)
[2020-02-03] MEDS: morphine ER (12 HR) 15 mg Tablet PO (12:09)
[2020-02-03] MEDS: sennosides 8.6 mg Tablet 17.2 MG PO (20:35)
[2020-02-03] MEDS: prazosin 1 mg Capsule 2 MG PO (20:35)
[2020-02-03] MEDS: quetiapine 300 mg Tablet PO (20:35)
[2020-02-04] VITALS (7 sets, daily range): BP systolic 93–118; BP diastolic 65–79; PULSE 85–90; RESP 16–20; TEMP 36.6–37.1; O2SAT 96–98
[2020-02-04] MEDS: potassium chloride premix 40 MEQ/100 ML PREMIX 25 MEQ IV ×2 (00:07→03:27)
[2020-02-04] MEDS: sodium chloride 0.9% 1,000 ML 75 ML IV ×2 (01:40→14:55)
[2020-02-04 04:22] LABS: Basophils % 0.6 %; Eosinophils # 0.2 10^3/uL (0.0-0.8); Eosinophils % 3.1 %; Hematocrit 26.7 % (37.0-47.0); Hemoglobin 8.4 g/dL (11.5-15.3); Lymphocytes # 1.8 10^3/uL (0.8-4.8); Lymphocytes % 26.4 %; Mean Corpuscular HGB Conc 31.5 g/dL (30.0-36.0); Mean Corpuscular Hemoglobin 25.8 pg (28.0-34.0); Mean Corpuscular Volume 82.2 fL (81-99); Mean Platelet Volume 9.7 fL (7.4-10.4); Monocytes # 0.7 10^3/uL (0.2-0.9); Monocytes % 10.5 %; Neutrophils # 3.96 10^3/uL (1.8-7.7); Nucleated Red Blood Cells % 0 %; Platelet Count 316 10^3/cmm (130-400); Red Blood Count 3.25 10^6/uL (4.1-5.3); Red Cell Distribution Width 23.5 % (12.1-15.1); White Blood Count 6.7 10^3/uL (4.0-10.0)
[2020-02-04 05:02] LABS: Alanine Aminotransferase 7 U/L (0-33); Albumin Level 2.7 g/dL (3.5-5.2); Alkaline Phosphatase 70 IU/L (35-105); Anion Gap 9.5 (5-19); Aspartate Amino Transferase 19 U/L (0-32); Blood Urea Nitrogen 4 mg/dL (6-20); Calcium 7.1 mg/dL (8.5-10.5); Carbon Dioxide 15 mmol/L (22-29); Chloride 122 mmol/L (98-107); Creatinine Clr Calc Pharmacy 147.2191; Globulin 2.1 g/dL (1.3-4.6); Glomerular Filtration Rate 134.7 mL/min (90-130); Glucose 92 mg/dL (65-115); Magnesium 1.6 mg/dL (1.7-2.3); Osmolality Calculated 291 mOsm/kg (285-295); Phosphorus 2.3 mg/dL (2.5-4.5); Potassium 3.5 mmol/L (3.5-5.1); Sodium 143 mmol/L (136-145); Total Bilirubin 0.2 mg/dL (0.15-1.2); Total Protein 4.8 g/dL (6.6-8.7)
[2020-02-04] MEDS: pantoprazole 40 mg SDV IVP ×2 (05:37→16:24)
[2020-02-04] MEDS: spironolactone 25 mg Tablet 12.5 MG PO (09:14)
[2020-02-04] MEDS: levETIRAcetam 500 mg Tablet PO ×2 (09:14→17:14)
[2020-02-04] MEDS: gabapentin 100 mg Capsule 200 MG PO ×2 (09:14→17:14)
[2020-02-04] MEDS: BuSPIRONE 5 mg Tablet PO ×3 (09:15→21:23)
[2020-02-04] MEDS: levothyroxine 150 mcg Tablet PO (09:15)
[2020-02-04] MEDS: baclofen 10 mg Tablet 20 MG PO ×2 (09:15→17:14)
[2020-02-04] MEDS: folic acid 1 mg Tablet PO ×2 (09:15→17:14)
[2020-02-04] MEDS: magnesium sulfate premix 4 GM/100 ML PREMIX IV (09:18)
--- NOTE | 2020-02-04 09:22 | PC.OT ---
OT evaluation attempted this AM. Pt requested hold as she did not get much sleep last night. Will attempt again as able.
--- NOTE | 2020-02-04 09:34 | P.PN_ITS ---
Subjective Subjective: Interval history: Patient reports feeling better. Denies shortness of breath, chest pain or abdominal pain. Her potassium improved. Reports that she was able to walk yesterday but wants to stay for 1 more day and go home tomorrow. She absolutely denies self-induced vomiting. She denies any problems with her and feels safe to stay at home. Reports that she ra rely gets out of her house. Vitals/I&O/Wt Last Vital Signs Temp 98.0 F 02/04/20 07:30 Pulse 86 02/04/20 07:30 Resp 18 02/04/20 09:14 BP 94/68 02/04/20 07:30 Pulse Ox 98 02/04/20 07:30 02/03/20 02/04/20 02/04/20 22:59 06:59 14:59 Intake Total 1600 / 3099.167 1292.916 / 4392.083 Output Total 1200 / 1850 Balance 1600 / 2449.167 92.916 / 2542.083 Physical Exam Const: COMMON NORMALS: no acute distress and patient oriented x3 Resp: COMMON NORMALS: normal respiratory effort and clear to auscultation bilaterally AUSCULTATION: clear to auscultation bilaterally Cardio: COMMON NORMALS: regular rate, regular rhythm and S2 normal heart sound present RATE: regular rate RHYTHM: regular rhythm HEART SOUNDS: S2 normal heart sound present OTHER: No lower extremity edema GI: COMMON NORMALS: Normal to inspection, nondistended, normoactive bowel sounds present, Soft to palpation and non-tender PALPATION: Yes Soft to palpation Neuro: COMMON NORMALS: patient oriented x3 and no focal motor deficits Data : 02/04/20 03:42 02/04/20 03:42 Micro: Microbiology 02/01/20 13:10 Urine Culture - Preliminary Urine,Clean Catch A&P Assessment and plan (1) Chronic back pain: Status: Acute (2) Microcytosis: Was most likely anemia just not apparent because of severe dehydration. Status: Acute (3) Dehydration: Status: Acute (4) Hypokalemia: Status: Acute (5) NSAID induced gastritis: Status: Acute (6) Hypophosphatemia: Status: Acute (7) Acute kidney injury: Status: Acute Additional A&P Information PLAN: Continue spironolactone and give 80 mEq of K-Phos. Replete magnesium. Remove Castillo catheter and if continues to improve we will likely be able to dismiss patient home tomorrow. Attestations Medical Necessity Statement*: Patient with severe electrolyte abnormality requires close inpatient monitoring and treatment will deemed safe for discharge. Time Spent in Patient Care: less than 15 minutes Coding Level of Care Code Acute Butadiene Converter Helper for g Fwd Diagnoses Chronic back pain M54.9; G89.29 Microcytosis R71.8 Dehydration E86.0 Hypokalemia E87.6 NSAID induced gastritis K29.60; T39.395A Hypophosphatemia E83.39 Acute kidney injury N17.9
[2020-02-04] MEDS: morphine ER (12 HR) 15 mg Tablet PO ×2 (10:58→23:21)
--- NOTE | 2020-02-04 11:24 | PC.CHAP ---
Pastoral Care Encounter/Spiritual Assessment Type of Contact [] Declined roller turner visit [] Patient/Family/Request visit [] Outpatient visit [] Follow-up visit [] Physician referral [] Code/Alert [X] Routine visit [] Staff referral [] Actively dying [] Patient sleeping [] Family support [] [] Out of room [] Palliative care [] [] Receiving care in room [] Pre-surgical visit [] Trauma [] Long length of stay [] ICU visit [] Other: Relational/Emotional Strength [] Patient feels connected with others/family/visitors/staff [] Distress [] Loneliness/isolation [] Abandonment Spirituality of Patient [] Person of Jennifer [] Attends Hinduism of their Jennifer [] Believes in Prayer [] Reads Bible or Latter-Day materials [] There are Spiritual issues to be addressed Wound Nurse Interventions [] Prayer [] Active listening [X] Non-anxious presence [] Spiritual/emotional support [] Crisis/trauma care [] Spiritual counseling [] Bereavement support [] Provided bereavement packet [] Provided Bible/devotional materials [] Provided toy/stuffed animal, coloring book to patient or family member [] Provided Communion [] Anointing/[place] [] Salvation [] Completed spiritual assessment [X] Other: See notes at bottom of page Impact on Illness or Injury [] Angry [] Fearful [] Anxious [] Often cries [] Exhaustion [] Unable to work [] Unable to attend protestant [] Unable to walk/stand [] Unable to read [] Unable to drive [] Unable to eat/drink [] Unable to sleep [] Unable to be with family [] Patient intubated [] Other: Summary: I offered prayer but pt declined. Time spent with patient: <5 mins
[2020-02-04] MEDS: sennosides 8.6 mg Tablet 17.2 MG PO (21:22)
[2020-02-04] MEDS: prazosin 1 mg Capsule 2 MG PO (21:22)
[2020-02-04] MEDS: quetiapine 300 mg Tablet PO (21:23)
[2020-02-05] VITALS: BP 115/81; PULSE 98; RESP 17; TEMP 36.9; O2SAT 100
[2020-02-05 04:00] VITALS: BP 104/71; PULSE 88; RESP 18; TEMP 36.7; O2SAT 98
[2020-02-05] MEDS: sodium chloride 0.9% 1,000 ML 75 ML IV (04:04)
[2020-02-05] MEDS: pantoprazole 40 mg SDV IVP (04:42)
[2020-02-05 07:46] VITALS: BP 126/74; PULSE 78; RESP 18; TEMP 37; O2SAT 97
[2020-02-05] MEDS: levETIRAcetam 500 mg Tablet PO (09:08)
[2020-02-05] MEDS: spironolactone 25 mg Tablet 12.5 MG PO (09:08)
[2020-02-05] MEDS: baclofen 10 mg Tablet 20 MG PO (09:08)
[2020-02-05] MEDS: folic acid 1 mg Tablet PO (09:08)
[2020-02-05] MEDS: levothyroxine 150 mcg Tablet PO (09:08)
[2020-02-05] MEDS: BuSPIRONE 5 mg Tablet PO (09:09)
[2020-02-05] MEDS: gabapentin 100 mg Capsule 200 MG PO (09:09)
--- NOTE | 2020-02-05 09:34 | PC.OT ---
OT note: Pt completed screen including walking to sink, held to IV pole but reported she was told she would be going home with walker, no loss of balance. Washed hands at sink. Returned to bed. She reported her son typically helps with donning socks at home as she has had multiple knee surgeries. No OT recommended at this time as she declines further needs and reported she will be returning home with family assistance as prior to hospitalization.
--- NOTE | 2020-02-05 10:36 | PC.PT ---
Patient refused PT at this time 10am. Patient was seated in chair. Requested ice. PT will attempt again at a later time, as able.
[2020-02-05 11:26] LABS: Basophils % 0.5 %; Eosinophils # 0.2 10^3/uL (0.0-0.8); Eosinophils % 4.1 %; Hematocrit 30.5 % (37.0-47.0); Hemoglobin 9.3 g/dL (11.5-15.3); Lymphocytes # 1.1 10^3/uL (0.8-4.8); Mean Corpuscular HGB Conc 30.5 g/dL (30.0-36.0); Mean Corpuscular Hemoglobin 25.4 pg (28.0-34.0); Mean Corpuscular Volume 83.3 fL (81-99); Mean Platelet Volume 9.6 fL (7.4-10.4); Monocytes # 0.5 10^3/uL (0.2-0.9); Monocytes % 8.1 %; Neutrophils # 3.85 10^3/uL (1.8-7.7); Neutrophils % 67.9 %; Nucleated Red Blood Cells % 0 %; Platelet Count 332 10^3/cmm (130-400); Red Blood Count 3.66 10^6/uL (4.1-5.3); Red Cell Distribution Width 23.9 % (12.1-15.1); White Blood Count 5.7 10^3/uL (4.0-10.0)
[2020-02-05 11:36] LABS: Alanine Aminotransferase 10 U/L (0-33); Albumin Level 2.9 g/dL (3.5-5.2); Alkaline Phosphatase 83 IU/L (35-105); Anion Gap 9.1 (5-19); Aspartate Amino Transferase 18 U/L (0-32); Blood Urea Nitrogen 6 mg/dL (6-20); Calcium 7.7 mg/dL (8.5-10.5); Carbon Dioxide 16 mmol/L (22-29); Chloride 120 mmol/L (98-107); Globulin 2.3 g/dL (1.3-4.6); Glomerular Filtration Rate 91.3 mL/min (90-130); Glucose 128 mg/dL (65-115); Magnesium 1.8 mg/dL (1.7-2.3); Osmolality Calculated 291 mOsm/kg (285-295); Potassium 3.1 mmol/L (3.5-5.1); Sodium 142 mmol/L (136-145); Total Bilirubin 0.2 mg/dL (0.15-1.2); Total Protein 5.2 g/dL (6.6-8.7)
[2020-02-05 11:58] VITALS: BP 97/60; PULSE 93; RESP 18; TEMP 36.7; O2SAT 100
--- NOTE | 2020-02-05 12:44 | P.DS_ITS ---
Discharge Providers Date of Admission: 02/01/20 12:23 Date of Discharge: February 05, 2020 Attending Provider at Admission: Leonard Baker MD Attending Provider at Discharge: Leonard Baker MD Primary Care Provider: Brie Everett DO Diagnoses at Discharge Discharge Diagnosis (1) Chronic back pain: Status: Acute (2) Microcytosis: Status: Acute (3) Dehydration: Status: Acute (4) Hypokalemia: Status: Acute (5) NSAID induced gastritis: Status: Acute (6) Hypophosphatemia: Status: Acute (7) Acute kidney injury: Status: Acute Reason for Visit Reason for Visit: WEAKNESS N/V Hospital Course Discharge Summary: Patient with chronic arthritis and recent use of NSAIDs presents with severe nausea and vomiting due to highly suspected NSAID induced gastritis. Patient had severe electrolyte and vitamin abnormality. She was admitted and hydrated with fluids with electrolytes repleted. She gradually improved and this morning reports feeling much better and strong enough to be d ismissed home. This morning she is still slightly hypokalemic and we will increase spironolactone to 25 mg daily and add 3 times daily potassium 20 mEq. I will request blood work in several days to make sure her electrolytes remain in normal range. I will also request outpatient follow-up with nephrology service. We will give patient 40 mg Protonix twice daily and discussed with patient regarding importance to avoid any NSAIDs. Should patient clinically not improve please consider upper endoscopy for evaluation especially in view of her absorption issues. Patient has significant knee problem and frequently uses her cane. Reports that her mobility with much improved with a walker as she is frequently not ambulating due to concern of falling. Her physicians are aware of her knee problem. Wheeled walker will be prescribed. This morning she denies any lightheadedness or dizziness. She denies any chest pain or shortness of breath. Denies any abdominal pain or problems with bowel movement. Her nausea completely resolved and she tolerates oral intake well. She denies being depressed and feels safe at home where she lives with her and son. Physical Exam Const: COMMON NORMALS: no acute distress and patient oriented x3 Resp: COMMON NORMALS: normal respiratory effort and clear to auscultation bilaterally AUSCULTATION: clear to auscultation bilaterally Cardio: COMMON NORMALS: regular rate, regular rhythm and S2 normal heart sound present RATE: regular rate RHYTHM: regular rhythm HEART SOUNDS: S2 normal heart sound present OTHER: No lower extremity edema GI: COMMON NORMALS: Normal to inspection, nondistended, normoactive bowel sounds present, Soft to palpation and non-tender PALPATION: Yes Soft to palpation Neuro: COMMON NORMALS: patient oriented x3 and no focal motor deficits Discharge Data Data Completed and Pending: Completed Studies During Hospitalization Category Date Time Status XR chest 1V mila ble [id number] Stat Exams 02/01/20 10:46 Completed Pending at discharge Category Date Time Status Aldosterone Routi ne Lab 02/03/20 04:28 Received Complete Blood Co unt w/Auto AM LABS Lab 02/06/20 04:00 Ordered Complete Blood Co unt w/Auto AM LABS Lab 02/07/20 04:00 Ordered Complete Blood Co unt w/Auto AM LABS Lab 02/08/20 04:00 Ordered Comprehensive Met abolic Panel AM LA BS Lab 02/06/20 04:00 Ordered Comprehensive Met abolic Panel AM LA BS Lab 02/07/20 04:00 Ordered Comprehensive Met abolic Panel AM LA BS Lab 02/08/20 04:00 Ordered Labs from last 24 hours 02/05/20 02/05/20 10:55 10:55 WBC 5.7 RBC 3.66 L Hgb 9.3 L Hct 30.5 L MCV 83.3 MCH 25.4 L MCHC 30.5 RDW 23.9 H Plt Count 332 MPV 9.6 Neut % (Auto) 67.9 Lymph % (Auto) 19.0 [place] % (Auto) 8.1 Eos % (Auto) 4.1 Baso % (Auto) 0.5 Neut # (Auto) 3.85 Lymph # (Auto) 1.1 [place] # (Auto) 0.5 Eos # (Auto) 0.2 Baso # (Auto) 0.0 Nucleated RBC % (a uto) 0 Nucleated RBCs # 0.0 Sodium 142 Potassium 3.1 L Chloride 120 H Carbon Dioxide 16 L Anion Gap 9.1 BUN 6 Creatinine 0.7 GFR Calculation 91.3 Glucose 128 H Calculated Osmolal ity 291 Calcium 7.7 L Magnesium 1.8 Total Bilirubin 0.2 AST 18 ALT 10 Alkaline Phosphata se 83 Total Protein 5.2 L Albumin 2.9 L Globulin 2.3 Vitals: Last Vital Signs Temp 98.1 F 08/02/20 11:58 Pulse 93 02/05/20 11:58 Resp 18 02/05/20 11:58 BP 97/60 02/05/20 11:58 Pulse Ox 100 02/05/20 11:58 Discharge Plan Discharge Patient Disposition: Home Condition: Stable Prescriptions: New Senna Lax 8.6 mg Tablet 17.2 mg PO BEDTIME Qty: 30 RF: 0 acetaminophen 325 mg Tablet 650 mg PO Q6H PRN (Reason: Mild/Mod Pain Or Temp >/= 101) Qty: 60 RF: 0 spironolactone 25 mg Tablet 25 mg PO DAILY Qty: 60 RF: 0 folic acid 1 mg Tablet 1 mg PO BID Qty: 60 RF: 0 Vitamin D2 1,250 mcg (50,000 unit) Capsule 50,000 unit PO Q7D Qty: 4 RF: 0 Protonix [address] for susp in packet 40 mg PO BID Qty: 60 RF: 0 Klor-Con M20 20 mEq tablet,ER particles/crystals 20 meq PO TID Qty: 60 RF: 0 Continued buspirone 5 mg tablet 5 mg PO TID RF: 0 quetiapine 300 mg tablet 300 mg PO BEDTIME RF: 0 levetiracetam 500 mg tablet 500 mg PO BID RF: 0 ondansetron HCl 8 mg tablet 8 mg PO Q6H PRN (Reason: Nausea) RF: 0 hydromorphone 8 mg tablet 8 mg PO BID RF: 0 Maxalt 10 mg Tablet See Rx Instructions .ROUTE .COMPLEX RF: 0 Vistaril 50 mg Capsule 50 mg PO TID PRN (Reason: unknown) RF: 0 levothyroxine 75 mcg tablet See Rx Instructions .ROUTE .COMPLEX RF: 0 famotidine 20 mg tablet 20 mg PO BID RF: 0 meclizine 25 mg tablet 25 - 50 mg PO TID PRN (Reason: Nausea) RF: 0 baclofen 10 mg tablet 20 mg PO BID RF: 0 Benadryl 25 mg Capsule 50 mg PO Q4H PRN (Reason: unknown) RF: 0 levothyroxine 150 mcg tablet 150 mcg PO DAILY RF: 0 morphine 15 mg Tablet Extended Release 15 mg PO Q12H PRN (Reason: Pain) RF: 0 gabapentin 100 mg capsule 200 mg PO BID RF: 0 prazosin 2 mg Capsule 2 mg PO BEDTIME RF: 0 Fetzima 20 mg capsule,extended release 24 hr 20 mg PO DAILY RF: 0 Discontinued ibuprofen 800 mg tablet 1,600 mg PO BID PRN (Reason: unknown) RF: 0 Discharge Orders: Discharge Order (Routine); Ordered 02/05/20 Ordered By: Leonard Baker Other Ambulatory Orders: Comprehensive Metabolic Panel (Routine) Timeframe: 3 Days Facility: [facility] - Location: Lab - Main Lab Ordered By: Leonard Baker Magnesium (Routine) Timeframe: 3 Days Facility: [facility] - Location: Lab - Main Lab Ordered By: Leonard Baker DME: Walker (Order) Location: None Selected Ordered By: Leonard Baker Referrals: Brie Everett DO [Primary Care Provider] - 4-7 days Discharge Diet: Advance as tolerated Discharge Activity: Increase activity as tolerated Activity Restrictions/Additional Instructions: Please call your doctor or present to emergency department if your condition worsens or you develop diarrhea, lightheadedness, fatigue or see blood in your stool or black stool. Please keep blood pressure and heart rate log 3 times daily to present to primary care physician next visit for medication adjustment. Please note that you will need to have repeat lab work in several days prior to primary care physician follow-up. Discharge Attestations Time Spent in Discharge Care*: greater than 30 min Quality Metrics Clinical Quality Measures During this hospital stay, did patient experience: None Coding Level of Care Code Acute Lunchroom Worker for Von Fwd Exam Detailed Diagnoses Chronic back pain M54.9; G89.29 Microcytosis R71.8 Dehydration E86.0 Hypokalemia E87.6 NSAID induced gastritis K29.60; T39.395A Hypophosphatemia E83.39 Acute kidney injury N17.9
[2020-02-05] MEDS: morphine ER (12 HR) 15 mg Tablet PO (12:59)
[2020-02-05] MEDS: potassium chloride ER 10 mEq Tablet 40 MEQ PO (13:36)
[2020-02-05 14:36] VITALS: BP 97/60; PULSE 93; RESP 18; TEMP 36.7; O2SAT 100
== END 2020-02-05 14:53 | disposition home or self-care (01) | DRG 641 ==
LOC: ER 10:51 → MEDSURG 12:38
PROVIDERS: Family Medicine; Nurse Practitioner Family; Admitting Provider Internal Medicine; Family Provider Family Medicine; PCP Family Medicine; Visit Provider Internal Medicine
DX: E87.6 Hypokalemia (principal); N17.9 Acute kidney failure, unspecified; F41.8 Other specified anxiety disorders; G40.409 Other generalized epilepsy and epileptic syndromes, not intractable, without status epilepticus; Z79.899 Other long term (current) drug therapy; G89.29 Other chronic pain; M54.9 Dorsalgia, unspecified; D50.9 Iron deficiency anemia, unspecified; E86.0 Dehydration; K29.60 Other gastritis without bleeding; K29.70 Gastritis, unspecified, without bleeding; T39.395A Adverse effect of other nonsteroidal anti-inflammatory drugs [NSAID], initial encounter; E83.39 Other disorders of phosphorus metabolism; E53.8 Deficiency of other specified B group vitamins; M19.90 Unspecified osteoarthritis, unspecified site
CPT/HCPCS: 12345; 36415; 71045; 80053; 81001; 81003; 82088; 82306; 82436; 82570; 82607; 82728; 82746; 83540; 83550; 83690; 83735; 84100; 84133; 84156; 84300; 84439; 84443; 84540; 85025; 87086; 93005; 96375; 97161; 97530; 99284; C9113; J1756; J2405; J3475; J3480; J7030

== ENCOUNTER 2020-02-08 17:23 | Inpatient (IN) | payer MEDICAID, SELFPAY ==
[2020-02-08] VITALS (8 sets, daily range): BP systolic 120–158; BP diastolic 64–97; PULSE 94–114; RESP 14–20; TEMP 37.9–38.9; O2SAT 96–100; BMI 31.8
[2020-02-08] MEDS: sodium chloride 0.9% 1,000 ML 999 ML IV ×2 (17:43→21:40)
[2020-02-08 17:44] LABS: Basophils # 0.1 10^3/uL (0.0-0.1); Basophils % 0.3 %; Eosinophils # 0.1 10^3/uL (0.0-0.8); Eosinophils % 0.5 %; Hematocrit 32.8 % (37.0-47.0); Hemoglobin 9.9 g/dL (11.5-15.3); Lymphocytes # 0.4 10^3/uL (0.8-4.8); Lymphocytes % 2.5 %; Mean Corpuscular HGB Conc 30.2 g/dL (30.0-36.0); Mean Corpuscular Hemoglobin 25.3 pg (28.0-34.0); Mean Corpuscular Volume 83.7 fL (81-99); Mean Platelet Volume 10.5 fL (7.4-10.4); Monocytes # 1.2 10^3/uL (0.2-0.9); Monocytes % 7.4 %; Neutrophils # 14.73 10^3/uL (1.8-7.7); Neutrophils % 88.6 %; Nucleated Red Blood Cells % 0 %; Platelet Count 273 10^3/cmm (130-400); Red Blood Count 3.92 10^6/uL (4.1-5.3); Red Cell Distribution Width 22.5 % (12.1-15.1); White Blood Count 16.6 10^3/uL (4.0-10.0)
--- NOTE | 2020-02-08 17:44 | ED_ITS ---
HPI - Nausea/Vomiting/Diarrhea General: Chief complaint: Nausea/Vomiting/Diarrhea Stated complaint: N/V Time Seen by Provider: 02/08/20 17:29 History of Present Illness: HPI Narrative: This patient is a 45-year-old female presenting today with vomiting. She tells me that she was in the hospital from until Thursday. She said she was admitted due to low potassium. She says on Thursday she started vomiting and has been vomiting ever since. She said she has not really had problems like this before. She is not able to keep down her antinausea medicine that she has at home. She has had her gallbladder out years ago. No other abdominal surgeries. She does have arthritis and orthopedic issues. She denies fever or diarrhea. She does have a low-grade temp here. MD elicited complaint: nausea and vomiting Onset (ago): day(s) (3) Associated nausea: Yes Associated abdominal pain: Yes Location of pain: Diffuse Quality: aching Associated symtoms: Reports fatigue, malaise and nausea; Denies change in vision, chest pain or headache(s) Review of Systems General: Reports: 10 or more systems reviewed and unremarkable except in HPI and below Const: Reports: fatigue and malaise; Denies: fever(s) or chills Eyes: Denies: change in vision ENMT: Denies: odynophagia Card: Denies: chest pain or swelling of feet/ankles Resp: Denies: dyspnea, productive cough or non-productive cough GI: Reports: abdominal pain, nausea and vomiting : Denies: flank pain or difficulty voiding Musc: Denies: neck pain or back pain Skin/Breast: Denies: rash Neuro: Denies: headache(s), numbness in extremities or weakness in extremities Lalo/Lymph: Denies: easy bruising or easy bleeding PFSH ED PFSH: Medical History (Updated 02/09/20 @ 08:23 by Maryam Akhtar MD) Anxiety Arthritis Back disorder Bilateral renal stones Bipolar disorder Chronic back pain Depression Obstructive pyelonephritis Seizures Surgical History H/O cervical spine surgery H/O knee surgery H/O shoulder surgery History of thyroid surgery Family History Mother Cancer Breast cancer Father Arthritis Social History Smoking and tobacco status: never smoked Alcohol intake: never Household members: spouse Marital status: Number of children: 1 Female Reproductive History: Date of last menstrual period: 01/25/20 Physical Exam Const: COMMON NORMALS: no acute distress, patient oriented x3, no limitations and alert GENERAL APPEARANCE: cooperative HENMT: HEAD & SCALP: normal to inspection FACE & SINUS: normal facial exam Eye: GENERAL EYE: appearance normal, both eyes and all related structures Neck/C-Spine: COMMON NORMALS: supple, no meningeal signs and no JVD Chest: COMMONS NORMALS: normal inspection of the chest Resp: COMMON NORMALS: normal respiratory effort, No use of accessory muscles and clear to auscultation bilaterally AUSCULTATION: clear to auscultation bilaterally Cardio: COMMON NORMALS: no JVD, regular rate, regular rhythm and No murmurs present (Cardio) RATE: regular rate RHYTHM: regular rhythm GI: COMMON NORMALS: Normal to inspection, nondistended, normoactive bowel sounds present and Soft to palpation INSPECTION: Yes normal to inspection AUSCULTATION: Yes normoactive bowel sounds PALPATION: Yes Soft to palpation and Yes Tenderness to palpation present (GI) (Mild, diffuse) Back/Pelvis: COMMON NORMALS: thoracic and lumbar spine normal to inspection Extremity: COMMON NORMALS: normal to inspection Neuro: COMMON NORMALS: patient oriented x3, moves all extremities, no focal motor deficits and no sensory deficits noted SENSORIUM/ORIENTATION: Yes alert MENINGEAL SIGNS: Yes no meningeal signs Psych: COMMON NORMALS: mental status grossly normal, cooperative and normal affect Skin: COMMON NORMALS: no rashes or lesions noted and turgor normal GENERAL SKIN EXAM: no rashes or lesions noted and turgor normal Course ED course: Patient appeared very uncomfortable on arrival. She was given pain medication. She is chronically on pain medicine has been vomiting and unable to tolerate it. She did report some relief with 1 mg of hydromorphone. This was later repeated as her pain returned. Due to her ongoing symptoms, UTI, back pain CT was done and did show an obstructing stone. Given her UTI this is concerning for potential worsening. I spoke with Dr. Randolph who asked me to keep her n.p.o. He agreed with the Rocephin she had already received. Dr. Doty will admit to the ICU as she is significant risk of decompensation. She also was hypokalemic and hypomagnesemic and these were replaced in the ED. Vital Signs: Vital signs: Vital Signs Temperature 98.6 F 02/09/20 05:55 Pulse Rate 105 H 02/09/20 08:30 Respiratory Rate 16 02/09/20 08:30 Blood Pressure 91/62 02/09/20 08:30 Pulse Oximetry 100 02/09/20 08:30 MDM - Nausea/Vomiting/Diarrhea 2 Lab Data: Labs: Lab Results 02/08/20 02/08/20 02/08/20 Range/Units 16:33 16:33 16:33 WBC 16.6 H (4.0-10.0) 10^3/ uL RBC 3.92 L (4.1-5.3) 10^6/u L Hgb 9.9 L (11.5-15.3) g/dL Hct 32.8 L (37.0-47.0) % MCV 83.7 (81-99) fL MCH 25.3 L (28.0-34.0) pg MCHC 30.2 (30.0-36.0) g/dL RDW 22.5 H (12.1-15.1) % Plt Count 273 (130-400) 10^3/c mm MPV 10.5 H (7.4-10.4) fL Neut % (Auto) 88.6 % Lymph % (Auto) 2.5 % Haskell % (Auto) 7.4 % Eos % (Auto) 0.5 % Baso % (Auto) 0.3 % Neut # (Auto) 14.73 H (1.8-7.7) 10^3/u L Lymph # (Auto) 0.4 L (0.8-4.8) 10^3/u L Haskell # (Auto) 1.2 H (0.2-0.9) 10^3/u L Eos # (Auto) 0.1 (0.0-0.8) 10^3/u L Baso # (Auto) 0.1 (0.0-0.1) 10^3/u L Nucleated RBC % (a uto) 0 % Nucleated RBCs # 0.0 /100WBC Sodium 138 (136-145) mmol/L Potassium 2.9 L (3.5-5.1) mmol/L Chloride 107 (98-107) mmol/L Carbon Dioxide 18 L (22-29) mmol/L Anion Gap 15.9 (5-19) BUN 11 (6-20) mg/dL Creatinine 1.1 H (0.5-0.9) mg/dL GFR Calculation 54.2 L (90-130) mL/min Glucose 119 H (65-115) mg/dL Calculated Osmolal ity 283 L (285-295) mOsm/k g Calcium 8.2 L (8.5-10.5) mg/dL Magnesium (1.7-2.3) mg/dL Total Bilirubin 0.6 (0.15-1.2) mg/dL AST 49 H (0-32) U/L ALT 51 H (0-33) U/L Alkaline Phosphata se 109 H (35-105) IU/L Total Protein 6.8 (6.6-8.7) g/dL Albumin 3.9 (3.5-5.2) g/dL Globulin 2.9 (1.3-4.6) g/dL HCG, Qual Negative (Negative) Urine Color (Yellow) Urine Appearance (CLEAR) Urine pH (5-7) Ur Specific Gravit y (1.005-1.030) Urine Protein (Negative) Urine Glucose (UA) (Normal) Urine Ketones (Negative) Urine Blood (Negative) Urine Nitrate (Negative) Urine Bilirubin (NEGATIVE) Urine Urobilinogen (Negative) mg/dL Ur Leukocyte Sandy ase (Negative) Urine RBC (0-2) /hpf Urine WBC (0-5) /hpf Ur Squamous Epith Cells (0-5) Amorphous Sediment Urine Bacteria (NONE) 02/08/20 02/08/20 Range/Units 16:33 18:05 WBC (4.0-10.0) 10^3/ uL RBC (4.1-5.3) 10^6/u L Hgb (11.5-15.3) g/dL Hct (37.0-47.0) % MCV (81-99) fL MCH (28.0-34.0) pg MCHC (30.0-36.0) g/dL RDW (12.1-15.1) % Plt Count (130-400) 10^3/c mm MPV (7.4-10.4) fL Neut % (Auto) % Lymph % (Auto) % Haskell % (Auto) % Eos % (Auto) % Baso % (Auto) % Neut # (Auto) (1.8-7.7) 10^3/u L Lymph # (Auto) (0.8-4.8) 10^3/u L Haskell # (Auto) (0.2-0.9) 10^3/u L Eos # (Auto) (0.0-0.8) 10^3/u L Baso # (Auto) (0.0-0.1) 10^3/u L Nucleated RBC % (a uto) % Nucleated RBCs # /100WBC Sodium (136-145) mmol/L Potassium (3.5-5.1) mmol/L Chloride (98-107) mmol/L Carbon Dioxide (22-29) mmol/L Anion Gap (5-19) BUN (6-20) mg/dL Creatinine (0.5-0.9) mg/dL GFR Calculation (90-130) mL/min Glucose (65-115) mg/dL Calculated Osmolal ity (285-295) mOsm/k g Calcium (8.5-10.5) mg/dL Magnesium 1.2 L (1.7-2.3) mg/dL Total Bilirubin (0.15-1.2) mg/dL AST (0-32) U/L ALT (0-33) U/L Alkaline Phosphata se (35-105) IU/L Total Protein (6.6-8.7) g/dL Albumin (3.5-5.2) g/dL Globulin (1.3-4.6) g/dL HCG, Qual (Negative) Urine Color Yellow (Yellow) Urine Appearance Cloudy (CLEAR) Urine pH 6.5 (5-7) Ur Specific Gravit y 1.010 (1.005-1.030) Urine Protein 1+ H (Negative) Urine Glucose (UA) Norm (Normal) Urine Ketones Negative (Negative) Urine Blood 2+ H (Negative) Urine Nitrate Negative (Negative) Urine Bilirubin Neg (NEGATIVE) Urine Urobilinogen Neg (Negative) mg/dL Ur Leukocyte Sandy ase 2+ H (Negative) Urine RBC 5-10 H (0-2) /hpf Urine WBC Too numerous to c nt H (0-5) /hpf Ur Squamous Epith Cells 0-4 H (0-5) Amorphous Sediment Not Reportable Urine Bacteria 3+ H (NONE) Discharge Plan Discharge Patient Disposition: Admitted As Inpatient Admit Provider: Jose Ramon Doty Discharge Date/Time: 02/09/20 00:04 Coding Level of Care Code ED Scaffold Worker for Chg Fwd Exam Comprehensive
[2020-02-08 18:11] LABS: HCG, Serum Qual Negative (Negative)
[2020-02-08 18:18] LABS: Alanine Aminotransferase 51 U/L (0-33); Albumin Level 3.9 g/dL (3.5-5.2); Alkaline Phosphatase 109 IU/L (35-105); Aspartate Amino Transferase 49 U/L (0-32); Blood Urea Nitrogen 11 mg/dL (6-20); Calcium 8.2 mg/dL (8.5-10.5); Carbon Dioxide 18 mmol/L (22-29); Chloride 107 mmol/L (98-107); Globulin 2.9 g/dL (1.3-4.6); Glomerular Filtration Rate 54.2 mL/min (90-130); Glucose 119 mg/dL (65-115); Osmolality Calculated 283 mOsm/kg (285-295); Sodium 138 mmol/L (136-145); Total Bilirubin 0.6 mg/dL (0.15-1.2); Total Protein 6.8 g/dL (6.6-8.7)
[2020-02-08 18:27] LABS: Add Urine Microscopic? YES; Bilirubin Urine Neg (NEGATIVE); Blood Urine 2+ (Negative); Glucose Urine UA Norm (Normal); Ketones Urine Negative (Negative); Leukocyte Esterase Urine 2+ (Negative); Nitrate Urine Negative (Negative); Protein Urine 1+ (Negative); Urine Appearance Cloudy (CLEAR); Urine Color Yellow (Yellow); Urobilinogen Urine Neg (Negative); pH Urine 6.5 (5-7)
[2020-02-08 18:28] LABS: Add Urine Culture? Yes; Bacteria Urine 3+; Squamous Epithelial Cell Urine 0-4 (0-5); WBC Urine TOO NUMEROUS TO CNT /hpf (0-5)
[2020-02-08 18:29] LABS: Anion Gap 15.9 (5-19); Potassium 2.9 mmol/L (3.5-5.1)
[2020-02-08 18:56] LABS: Magnesium 1.2 mg/dL (1.7-2.3)
[2020-02-08] MEDS: potassium chloride premix 40 MEQ/100 ML PREMIX 25 MEQ IV (19:08)
--- NOTE | 2020-02-08 19:22 | XRR_ITS ---
PROCEDURE INFORMATION: Exam: XR Chest, 1 View Exam date and time: 02/08/2020 7:35 PM Age: 45 years old Clinical indication: Fever and other: Vomiting; Additional info: Vomiting x 4 days, fever TECHNIQUE: Imaging protocol: XR of the chest Views: 1 view. COMPARISON: CR XR chest 1V portable [id number] 02/01/2020 11:08 AM FINDINGS: Lungs: Mild interstitial prominence, without acute airspace disease. Pleural space: No pleural effusion. Next para mild asymmetric elevation of the right hemidiaphragm. Heart/Mediastinum: No cardiomegaly. Bones/joints: Postoperative change in the cervical spine. When correlating with the previous study, no significant interval changes are present. XR/XR chest 1V portable [id number] IMPRESSION: No acute airspace or pleural disease.
[2020-02-08] MEDS: HYDROmorphone 1 mg/mL INJ 1 mL IVP ×2 (19:30→21:41)
[2020-02-08] MEDS: cefTRIAXone 1,000 MG in sodium chloride 0.9% (plus) 50 ML 100 MG IV (19:34)
--- NOTE | 2020-02-08 19:44 | CTR_ITS ---
PROCEDURE INFORMATION: Exam: CT Abdomen And Pelvis With Contrast Exam date and time: 02/08/2020 7:59 PM Age: 45 years old Clinical indication: Nausea and vomiting; Abdominal pain; Generalized; Prior surgery; Surgery type: Gb, tubal; Additional info: Abdominal pain, fever TECHNIQUE: Imaging protocol: Computed tomography of the abdomen and pelvis with intravenous contrast. Axial, coronal and sagittal reformatted images were created and reviewed. Radiation optimization: All CT scans at this facility use at least one of these dose optimization techniques: automated exposure control; mA and/or kV adjustment per patient size (includes targeted exams where dose is matched to clinical indication); or iterative reconstruction. Contrast material: OMNI 300; Contrast volume: 95 ml; Contrast route: INTRAVENOUS (IV); COMPARISON: No relevant prior studies available. RADIATION DOSE METRICS: Total DLP (mGy-cm): 818.09 FINDINGS: Liver: Unremarkable. Gallbladder and bile ducts: Status post cholecystectomy. Mild central biliary ductal dilatation, likely postsurgical. Pancreas: Unremarkable. Spleen: Unremarkable. Adrenals: Unremarkable. Kidneys and ureters: Mild right-sided hydronephrosis and perinephric stranding, secondary to a 6 mm calculus in the region of the UPJ (axial image 34 and coronal image 29). Nonobstructing bilateral renal calculi. Mild right urothelial enhancement. Stomach and bowel: Moderate amount of retained stool in the colon. No obstruction. No bowel wall thickening. No pneumatosis. Appendix: Normal. Intraperitoneal space: Trace nonspecific free pelvic fluid, likely physiologic and/or reactive. No organized fluid collection. No free air. Vasculature: Unremarkable. No aneurysm. Lymph nodes: No pathologically enlarged lymph nodes. Bladder: Mild circumferential urinary bladder wall thickening and perivesicular edema. Reproductive: Unremarkable. Bones/joints: No acute osseous abnormality. Soft tissues: Unremarkable. CT/CT abdomen pelvis w con* [id number] IMPRESSION: 1. Right-sided obstructive uropathy with findings suggestive of superimposed ascending urinary tract infection, as described above. 2. Additional findings, as above. Radiation Dose CTDIVOL = (mGy): DLP = 818.09 (mGy-cm)
[2020-02-08] MEDS: magnesium sulfate premix 2 GM/50 ML PIGGYBACK IV (20:07)
[2020-02-08] MEDS: iohexol 300 mg/mL 100 mL Btl IV (20:37)
[2020-02-08] MEDS: ondansetron 2 mg/ML SDV 2 mL 8 MG IVP (21:40)
--- NOTE | 2020-02-08 22:18 | PM.HP ---
Providers/Chief Complaint Primary Care Provider: Brie Everett DO Chief Complaint: N/V History of Present Illness Mishel Kellogg is a 45 year old female recently discharged from the hospital on February 04 with concerns of gastritis. Reports that when she went home within a day she felt bad again and had nausea and vomiting. She had back pain, more on the right. She had subjective fevers. No blood in her stool or black or tarry stool. Denies ever having a renal stone before. Has had some burning with urination. Reports she feels bad and hurts all over as well. Review of Systems General: Reports: 10 or more systems reviewed and unremarkable except in HPI and below Const: Reports: fever(s), chills, change in appetite and fatigue Eyes: Denies: change in vision ENMT: Denies: throat pain Card: Denies: chest pain Resp: Denies: dyspnea GI: Reports: abdominal pain, nausea and vomiting : Reports: flank pain, dysuria and urinary urgency Musc: Denies: neck pain Skin/Breast: Denies: rash Psych: Denies: anxiety Endo: Denies: polyuria Lalo/Lymph: Denies: easy bruising All/Imm: Denies: urticaria Medications/Allergies Home Medications Medication Instructions Recorded Confirmed Last Taken Type Fetzima 20 mg PO DAILY 02/01/20 02/08/20 02/07/20 History baclofen 20 mg PO BID 02/01/20 02/08/20 02/08/20 History buspirone 5 mg PO TID 02/01/20 02/08/20 01/31/20 History diphenhydramine HCl [Benadryl] 50 mg PO Q4H PRN 02/01/20 02/08/20 02/08/20 History famotidine 20 mg PO BID 02/01/20 02/08/20 02/07/20 History gabapentin 200 mg PO BID 02/01/20 02/08/20 02/07/20 History hydromorphone 8 mg PO BID 02/01/20 02/08/20 02/08/20 History hydroxyzine pamoate [Vistaril] 50 mg PO TID PRN 02/01/20 02/08/20 Unknown History levetiracetam 500 mg PO BID 02/01/20 02/08/20 02/07/20 History levothyroxine 150 mcg PO DAILY 02/01/20 02/08/20 02/07/20 History meclizine 25 - 50 mg PO TID PRN 02/01/20 02/08/20 02/07/20 History morphine 15 mg PO Q12H PRN 02/01/20 02/08/20 02/08/20 History ondansetron HCl 8 mg PO Q6H PRN 02/01/20 02/08/20 02/08/20 History prazosin 2 mg PO BEDTIME 02/01/20 02/08/20 02/07/20 History quetiapine 300 mg PO BEDTIME 02/01/20 02/08/20 02/07/20 History rizatriptan [Maxalt] 10 mg PO Q8H PRN 02/01/20 02/08/20 Unknown History acetaminophen 650 mg PO Q6H PRN #60 tab 02/05/20 02/08/20 Unknown Rx ergocalciferol (vitamin D2) 50,000 unit PO Q7D #4 cap 02/05/20 02/08/20 01/30/20 Rx [Vitamin D2] folic acid 1 mg PO BID #60 tab 02/05/20 02/08/20 02/07/20 Rx pantoprazole [Protonix] 40 mg PO BID #60 each 02/05/20 02/08/20 02/07/20 Rx potassium chloride [Klor-Con M20] 20 meq PO TID #60 tab 02/05/20 02/08/20 02/07/20 Rx spironolactone 25 mg PO DAILY #60 tab 02/05/20 02/08/20 02/07/20 Rx sennosides [Senna Lax] 17.2 mg PO BEDTIME 02/08/20 02/08/20 02/06/20 History Allergies Allergy/AdvReac Type Severity Reaction Status Date / Time haloperidol [From Haldol] Allergy Unknown Verified 02/01/20 11:24 hydroxyzine [From Vistaril] Allergy Unknown Verified 02/01/20 11:24 meperidine [From Demerol] Allergy Unknown Verified 02/01/20 11:24 midazolam [From Versed] Allergy Unknown Verified 02/01/20 11:24 olanzapine [From Zyprexa] Allergy Unknown Verified 02/01/20 11:24 prochlorperazine Allergy Unknown Verified 02/01/20 11:24 [From Compazine] promethazine Allergy Unknown Verified 02/01/20 11:24 anti-nausea meds except Allergy Unknown Uncoded 02/01/20 11:11 zofran PFSH Acute PFSH: Medical History Anxiety Arthritis Back disorder Bipolar disorder Chronic back pain Depression Seizures Surgical History H/O cervical spine surgery H/O knee surgery H/O shoulder surgery History of thyroid surgery Family History Mother Cancer Breast cancer Father Arthritis Social History Smoking and tobacco status: never smoked Alcohol intake: never Household members: spouse Marital status: Number of children: 1 Female Reproductive History: Date of last menstrual period: 01/25/20 Vitals/I&O/Wt Last Vital Signs Temp 100.6 F H 02/08/20 21:41 Pulse 114 H 02/08/20 21:41 Resp 18 02/08/20 21:41 BP 158/97 02/08/20 21:41 Pulse Ox 97 02/08/20 21:41 Weight last 48 hrs Weight 81.647 kg Physical Exam Narrative: EXAM NARRATIVE: General exam demonstrates an uncomfortable white female, with shaking, reporting she feels unwell HEENT: Pupils equally round. Oropharynx clear. Neck is supple no lymphadenopathy or thyromegaly Cardiovascular tachycardic with a heart rate of 110. No murmur Lungs clear no wheezing or crackles Abdomen is soft with positive bowel sounds. Tenderness right side. was deferred Extremities no cyanosis clubbing or edema Neuro no focal deficits Skin no rash Sepsis: Is patient septic: Yes Focused sepsis exam performed: Yes Data : 02/08/20 16:33 02/08/20 16:33 Other data: CT demonstrated right-sided obstructive uropathy, with likely infection Chest x-ray negative per my read Transaminitis is noted White blood cells too numerous to count, 5-10 red cells, 3+ bacteria A&P Assessment and plan (1) Obstructive uropathy: Urology consultation. Needs stenting. Pain control Status: Acute (2) UTI (urinary tract infection): Initiate Rocephin 1 g IV every 12 hours Urine culture Status: Acute (3) Sepsis: Blood culture, urine culture Aggressive hydration ICU admission secondary to electrolyte abnormalities, clinical presentation, abnormal vital signs with tachycardia, fever, leukocytosis all consistent with sepsis Status: Acute (4) Hypokalemia: Supplemented in ER Status: Acute (5) Hypomagnesemia: Supplemented in ER Status: Acute (6) Anemia: Appears to be chronic Status: Acute (7) Leukocytosis: Secondary to sepsis, UTI Status: Acute Additional A&P Information Transaminitis. Likely secondary to sepsis. Check hepatitis panel. Chronic back pain History of seizures, Keppra IV for now as will be n.p.o. History of GERD. Protonix IV for now Depression, bipolar disorder. Resume medicines when able Multiple other medical problems as outlined in past medical history SCDs for DVT prophylaxis, surgery anticipated Full code Attestations Medical Necessity Statement*: Will need greater than 2 midnight stay for evaluation and treatment of obstructive uropathy secondary to ureterolithiasis Time Spent in Patient Care: Greater than 35 minutes Critical Care Time: 42 minutes spent in critical care time at bedside with patient, discussing with ER and subspecialty in this patient with sepsis, electrolyte abnormality, high risk for decompensation. 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
[2020-02-08] MEDS: sodium chloride 0.9% 1,000 ML 150 ML IV (23:15)
[2020-02-09] VITALS (144 sets, daily range): BP systolic 81–137; BP diastolic 49–89; PULSE 86–118; RESP 10–25; TEMP 36.6–39.3; O2SAT 94–100
--- NOTE | 2020-02-09 | SCC_ITS ---
Procedure Done: 1. Cystoscopy with right ureteral stent placement 9.5 seconds of fluoroscopic guidance, for a cumulative dose of 1.58 mGy, was provided to Dr. Randolph by the radiology department. C-arm images of the abdomen were saved for the patient's permanent record. [facility]
--- NOTE | 2020-02-09 00:20 | PC.NURSE ---
Addendum entered by Jeniffer Bustamante RN 02/09/20 02:04: Pt informed and educated on NPO status for surgery in AM. allowed po meds with small sip of water. Reinforcement needed, patient trying to talk nurse into giving water after education given. Original Note: Admit Note Arrived to floor from ER at this time via gurney. Pt ambulated self to bed. Patient skin and lips are pale. Alert and oriented on arrival to unit. Breathing even and non-labored on room air. Lungs clear throughout. ER nurse reports temp 102 before leaving ER. Oral temp checked 99.7, skin is hot to touch. Axillary temp 102.7. Other vitals reviewed. C/o bilateral flank pain, rates 8/10. Oriented to room and call light. Admission in progress.
[2020-02-09 00:23] LABS: Lactic Sepsis W/Reflex 3.4 mmol/L (0.5-2.2)
[2020-02-09] MEDS: pantoprazole 40 mg SDV IVP ×2 (00:34→23:21)
[2020-02-09] MEDS: acetaminophen 325 mg Tablet 650 MG PO ×2 (00:35→19:19)
[2020-02-09] MEDS: quetiapine 300 mg Tablet PO ×2 (01:31→20:57)
[2020-02-09] MEDS: morphine 4 mg/mL SDV 1 mL IVP ×4 (01:35→20:57)
[2020-02-09] MEDS: ondansetron 2 mg/ML SDV 2 mL 4 MG IVP ×3 (01:40→20:57)
[2020-02-09 01:49] LABS: Reflex Lactate Order REFLEX LACTIC ORDERD
[2020-02-09 03:20] LABS: Basophils % 0.1 %; Hematocrit 25.6 % (37.0-47.0); Hemoglobin 7.5 g/dL (11.5-15.3); Lymphocytes # 0.3 10^3/uL (0.8-4.8); Lymphocytes % 3.6 %; Mean Corpuscular HGB Conc 29.3 g/dL (30.0-36.0); Mean Corpuscular Hemoglobin 25.3 pg (28.0-34.0); Mean Corpuscular Volume 86.2 fL (81-99); Mean Platelet Volume 10.3 fL (7.4-10.4); Monocytes # 0.9 10^3/uL (0.2-0.9); Monocytes % 9.6 %; Neutrophils % 84.5 %; Nucleated Red Blood Cells % 0 %; Platelet Count 114 10^3/cmm (130-400); Red Blood Count 2.97 10^6/uL (4.1-5.3); Red Cell Distribution Width 22.4 % (12.1-15.1); White Blood Count 9.4 10^3/uL (4.0-10.0)
[2020-02-09 03:48] LABS: Lactic Acid level (Lactate) 1.9 mmol/L (0.5-2.2)
[2020-02-09 03:49] LABS: Alanine Aminotransferase 30 U/L (0-33); Albumin Level 2.5 g/dL (3.5-5.2); Alkaline Phosphatase 77 IU/L (35-105); Anion Gap 10.6 (5-19); Aspartate Amino Transferase 21 U/L (0-32); Blood Urea Nitrogen 11 mg/dL (6-20); Calcium 6.6 mg/dL (8.5-10.5); Carbon Dioxide 15 mmol/L (22-29); Chloride 117 mmol/L (98-107); Globulin 2.3 g/dL (1.3-4.6); Glucose 160 mg/dL (65-115); Magnesium 1.6 mg/dL (1.7-2.3); Osmolality Calculated 289 mOsm/kg (285-295); Sodium 140 mmol/L (136-145); Total Bilirubin 0.7 mg/dL (0.15-1.2); Total Protein 4.8 g/dL (6.6-8.7)
[2020-02-09 03:50] LABS: Potassium 2.6 mmol/L (3.5-5.1)
--- NOTE | 2020-02-09 04:00 | PC.NURSE ---
Physician notification Critical K+ 2.6. Orders received for K-rider 40 add 1% lidocaine IV X 1. Notified of hypotension systolic in 80's with MAP pressures of 64 for past hr. Received orders for 500ml NS bolus.
[2020-02-09] MEDS: lidocaine 1% INJ 20 mL 5 ML IV (04:08)
[2020-02-09] MEDS: sodium chloride 0.9% 500 ML 999 ML IV (04:08)
[2020-02-09] MEDS: potassium chloride premix 40 MEQ/100 ML PREMIX 25 MEQ IV (04:08)
[2020-02-09 04:42] LABS: Hepatitis A Antibody IgM Non-Reactive (Nonreactive); Hepatitis B Core IgM Non-Reactive (Nonreactive); Hepatitis B Surface Antigen Non-Reactive (Nonreactive); Hepatitis C Virus Antibody Non-Reactive (Nonreactive)
[2020-02-09 04:50] LABS: Slide Review Slide Review Perform
[2020-02-09] MEDS: sodium chloride 0.9% 1,000 ML 150 ML IV ×2 (04:52→17:43)
[2020-02-09] MEDS: magnesium sulfate premix 2 GM/50 ML PIGGYBACK IV (04:52)
--- NOTE | 2020-02-09 05:00 | P.CONIM_ITS ---
Providers/Reason For Consult Consulting Physican/Specialty*: [facility]/Urology Reason for Consult*: Right obstructive pyelo Attending Physician: Jose Ramon Doty MD Primary Care Provider: Brie Everett DO History of Present Illness History of Present Illness Mishel Kellogg is a 45 year old female with a 6+mm Right proximal ureteral stone and UTI. Admitted last night with progression of septic picture: decreasing BP, tachycardia, and fever. On admission BP was 130/80, WBC 16k, Temp 100.3. Because of worsening clinical picture recomendation for emergent stent placement on Right. Additional information: CT scan showed bilateral nonobstructing renal calculi. She is significantly hypokalemic despite aggressive replacement overnight. Platelet count has decreased and there is concern for possible development of DIC. Creatinine is increasing. With the patient the emergency status of this condition. We discussed stent placement as the first step in dealing with the stone with delayed definitive treatment after the infection has improved. I also discussed that ureteroscopy is occasionally necessary in order to bypass the stone with a wire if it is difficult to pass a wire. I reviewed the rare occurrence where the emergency percutaneous nephrostomy tube is required if the collecting system is not accessible in a retrograde fashion. Require transfer to [facility] for interventional radiology. She has given informed consent to proceed emergently to the operating room I have asked if I can call her family but she states that her family's phones are not functioning. Review of Systems Const: Reports: fever(s), fatigue and malaise Eyes: Denies: change in vision or blurry vision ENMT: Denies: throat pain or oral sores Card: Denies: chest pain or palpitations Resp: Denies: dyspnea or hemoptysis GI: Reports: abdominal pain, nausea and vomiting : Reports: flank pain Musc: Reports: back pain and joint pain; Denies: extremity swelling Skin/Breast: Denies: rash or sores Neuro: Denies: headache(s), Slurred speech present or seizure-like activity Psych: Denies: anxiety or memory loss Endo: Denies: polyuria Lalo/Lymph: Denies: easy bruising or enlarged lymph nodes All/Imm: Denies: urticaria Meds/Allergies Home Medications and Allergies Home Medications Medication Instructions Recorded Confirmed Last Taken Type Fetzima 20 mg PO DAILY 02/01/20 02/08/20 02/07/20 History baclofen 20 mg PO BID 02/01/20 02/08/20 02/08/20 History buspirone 5 mg PO TID 02/01/20 02/08/20 01/31/20 History diphenhydramine HCl [Benadryl] 50 mg PO Q4H PRN 02/01/20 02/08/20 02/08/20 History famotidine 20 mg PO BID 02/01/20 02/08/20 02/07/20 History gabapentin 200 mg PO BID 02/01/20 02/08/20 02/07/20 History hydromorphone 8 mg PO BID 02/01/20 02/08/20 02/08/20 History hydroxyzine pamoate [Vistaril] 50 mg PO TID PRN 02/01/20 02/08/20 Unknown History levetiracetam 500 mg PO BID 02/01/20 02/08/20 02/07/20 History levothyroxine 150 mcg PO DAILY 02/01/20 02/08/20 02/07/20 History meclizine 25 - 50 mg PO TID PRN 02/01/20 02/08/20 02/07/20 History morphine 15 mg PO Q12H PRN 02/01/20 02/08/20 02/08/20 History ondansetron HCl 8 mg PO Q6H PRN 02/01/20 02/08/20 02/08/20 History prazosin 2 mg PO BEDTIME 02/01/20 02/08/20 02/07/20 History quetiapine 300 mg PO BEDTIME 02/01/20 02/08/20 02/07/20 History rizatriptan [Maxalt] 10 mg PO Q8H PRN 02/01/20 02/08/20 Unknown History acetaminophen 650 mg PO Q6H PRN #60 tab 02/05/20 02/08/20 Unknown Rx ergocalciferol (vitamin D2) 50,000 unit PO Q7D #4 cap 02/05/20 02/08/20 01/30/20 Rx [Vitamin D2] folic acid 1 mg PO BID #60 tab 02/05/20 02/08/20 02/07/20 Rx pantoprazole [Protonix] 40 mg PO BID #60 each 02/05/20 02/08/20 02/07/20 Rx potassium chloride [Klor-Con M20] 20 meq PO TID #60 tab 02/05/20 02/08/20 02/07/20 Rx spironolactone 25 mg PO DAILY #60 tab 02/05/20 02/08/20 02/07/20 Rx sennosides [Senna Lax] 17.2 mg PO BEDTIME 02/08/20 02/08/20 02/06/20 History Allergies Allergy/AdvReac Type Severity Reaction Status Date / Time haloperidol [From Haldol] Allergy Unknown Verified 02/01/20 11:24 hydroxyzine [From Vistaril] Allergy Unknown Verified 02/01/20 11:24 meperidine [From Demerol] Allergy Unknown Verified 02/01/20 11:24 midazolam [From Versed] Allergy Unknown Verified 02/01/20 11:24 olanzapine [From Zyprexa] Allergy Unknown Verified 02/01/20 11:24 prochlorperazine Allergy Unknown Verified 02/01/20 11:24 [From Compazine] promethazine Allergy Unknown Verified 02/01/20 11:24 anti-nausea meds except Allergy Unknown Uncoded 02/01/20 11:11 zofran Current Medications Current Medications Generic Name Dose Route Start Last Admin Trade Name Freq PRN Reason Stop Dose Admin Acetaminophen 650 mg 02/08/20 22:28 02/09/20 00:35 Tylenol PO 650 mg Q6H PRN Administration Mild/Mod Pain Or Temp >/= 101 Sodium Chloride 1,000 mls @ 150 mls/hr 02/08/20 22:30 02/09/20 04:52 Sodium Chloride 0.9% IV 150 mls/hr .Q6H40M TRENT Administration Levetiracetam 500 mg/ Sodium 105 mls @ 420 mls/hr 02/08/20 23:26 02/09/20 00:38 Chloride IV 420 mls/hr Q12H TRENT Administration Potassium Chloride 40 meq in 100 mls @ 25 mls/hr 02/09/20 03:59 02/09/20 04:08 K-Ruben IV 02/09/20 07:58 25 mls/hr ONCE ONE Administration Imipenem/Cilastatin Sodium 500 100 mls @ 200 mls/hr 02/09/20 04:15 02/09/20 04:48 mg/ Sodium Chloride IV 200 mls/hr Q6H TRENT Administration Protocol Magnesium Sulfate 2 gm in 50 mls @ 50 mls/hr 02/09/20 04:15 02/09/20 04:52 Magnesium Sulfate Premix IV 02/09/20 05:14 50 mls/hr ONCE ONE Administration Morphine Sulfate 4 mg 02/08/20 22:28 02/09/20 01:35 Morphine IVP 4 mg Q4H PRN Administration SEVERE PAIN Ondansetron HCl 4 mg 02/08/20 22:28 02/09/20 01:40 Zofran IVP 4 mg Q6H PRN Administration vomiting, or N/V if npo Pantoprazole Sodium 40 mg 02/08/20 23:26 02/09/20 00:34 Protonix IVP 40 mg Q24H TRENT Administration Quetiapine Fumarate 300 mg 02/09/20 01:05 02/09/20 01:31 Seroquel PO 300 mg BEDTIME TRENT Administration PFSH Acute PFSH: Medical History (Updated 02/09/20 @ 06:01 by Simon Randolph MD) Anxiety Arthritis Back disorder Bilateral renal stones Bipolar disorder Chronic back pain Depression Obstructive pyelonephritis Seizures Surgical History H/O cervical spine surgery H/O knee surgery H/O shoulder surgery History of thyroid surgery Family History Mother Cancer Breast cancer Father Arthritis Social History Smoking and tobacco status: never smoked Alcohol intake: never Household members: spouse Marital status: Number of children: 1 Female Reproductive History: Date of last menstrual period: 01/25/20 Vitals/I&O/Wt Last Vital Signs Temp 99.8 F H 02/09/20 04:15 Pulse 106 H 02/09/20 04:00 Resp 19 H 02/09/20 04:00 BP 87/55 02/09/20 04:00 Pulse Ox 96 02/09/20 04:00 02/08/20 02/08/20 02/09/20 14:59 22:59 06:59 Intake Total 842.5 / 842.5 Output Total 100 / 100 Balance 742.5 / 742.5 Weight last 48 hrs Weight 178 lb 8 oz Weight 180 lb Physical Exam Const: COMMON NORMALS: alert; apparent distress GENERAL APPEARANCE: cooperative, well kempt and ill appearing NUTRITIONAL APPEARANCE: obese ORIENTATION/CONSCIOUSNESS: Yes awake HENMT: COMMON NORMALS: normocephalic and atraumatic HEAD & SCALP: normal to inspection, normocephalic and atraumatic Eye: COMMON NORMALS: conjunctivae normal and no scleral icterus CONJUNCTIVA: Yes conjunctivae normal Neck/C-Spine: GENERAL: Yes normal visual inspection Lymph: LYMPHATIC: no lymphadenopathy noted Resp: EFFORT & INSPECTION: No labored and No Actively coughing Cardio: COMMON NORMALS: regular rate RATE: regular rate and tachycardic GI: COMMON NORMALS: Soft to palpation PALPATION: Yes Soft to palpation, Yes Tenderness to palpation present (GI) and No Rebound tenderness present : COMMON NORMALS: Yes normal appearance of the vagina BLADDER/KIDNEY EXAM: Yes bladder normal to palpation EXTERNAL FEMALE EXAM: Yes normal appearance of the urethra BIMANUAL EXAM - VAGINA & UTERUS: Yes bladder normal to palpation Extremity: COMMON NORMALS: no clubbing, cyanosis or edema Neuro: COMMON NORMALS: no focal motor deficits SENSORIUM/ORIENTATION: Yes alert Psych: COMMON NORMALS: mental status grossly normal APPEARANCE: Yes grossly normal and Yes well kempt ATTITUDE: Yes calm and Yes engaged Skin: COMMON NORMALS: no rashes or lesions noted and no jaundice GENERAL SKIN EXAM: no rashes or lesions noted Data Micro: Micro: Microbiology 02/08/20 23:59 Blood Culture - Pr eliminary Blood SPECIMEN [facility] 02/08/20 23:59 Blood Culture - Pr eliminary Blood SPECIMEN [facility] A&P Assessment and plan (1) Obstructive pyelonephritis: Large stone right proximal ureter with obstructive changes and evidence of pyelonephritis in association with sepsis. Status: Acute (2) Sepsis: Status: Acute (3) Bilateral renal stones: Multiple nonobstructing moderate to large sized renal calculi. Status: Acute (4) Hypomagnesemia: Status: Acute (5) Hypokalemia: Status: Acute Consult Attestations Medical Necessity Statement: Critically ill patient Requires intensive care management and emergency surgery. Coding Level of Care Code Acute [employer] for g Fwd Exam Comprehensive Diagnoses Obstructive pyelonephritis N11.1 Sepsis A41.9 Bilateral renal stones N20.0 Hypomagnesemia E83.42 Hypokalemia E87.6
--- NOTE | 2020-02-09 05:14 | PC.PHAR ---
Vancomycin is dosed at 1500mg IVPB every 24 hours to produce a predicted trough level of 13.43 (population based pharmacokinetic analysis). A trough level has been ordered from the lab to be obtained before the fourth dose to confirm and adjust if needed.
--- NOTE | 2020-02-09 05:17 | PC.NURSE ---
Constantinoh after baseline data obtained, PLR method used. Change in SVI 13.7%. SVR 1436, CI 4.[address] Doty notified of hemodynamics. Received verbal order for additional 500ml bolus.
--- NOTE | 2020-02-09 05:49 | SC_ITS ---
WS: [id number] C-ARM RADIOGRAPHS ABDOMEN; 2 IMAGES HISTORY: stent placement COMPARISON: None available. Intraoperative imaging for RIGHT ureteral stent placement. SC/C-arm [place] for Urology IMPRESSION: Intraoperative imaging during RIGHT ureteral stent placement.
--- NOTE | 2020-02-09 05:57 | P.ANESASSM_ITS ---
Pre-Anesthetic Assessment Pre-Anesthetic Assessment: Height/Weight: Height 1.6 m Weight 80.966 kg Temp Pulse Resp BP Pulse Ox 99.8 F H 106 H 19 H 87/55 96 02/09/20 04:15 02/09/20 04:00 02/09/20 04:00 02/09/20 04:00 02/09/20 04:00 Preop Diagnosis: Obstructive uropaty Proposed Procedure: Operation Date: 02/09/20 05:40 Proposed Procedures p Cystoscopy(Not Applicable) - Simon Randolph MD Familial anesthetic complications: None Last intake: Intake NPO > 8 hrs Last Liquid Date 02/09/20 Last Liquid Time 00:00 Last Solid Date 02/06/20 Social: Social History: No alcohol and No tobacco Exam: Pre-Anes Outpt Exam: alert, oriented x 3, clear to auscultation bilaterally and regular rate & rhythm Airway: Cervical ROM: WNL MP: 2 Additional comments: extremely poor dentition - patient counselled on possibility of lost teeth and broken teeth Pulmonary: Pulmonary: Asthma CV/HEM: CV/HEM: Anemia Comments: probable DIC GI: Comments: gsatritits Metabolic: Comments: hypokalemia sepsis Anesthetic Plan: ASA status: 4E Anesthesia: General Risk of > 500 ml blood loss (7ml/kg in children): No Meds/Allergies Current Medications: Current Medications Generic Name Dose Route Start Last Admin Trade Name Freq PRN Reason Stop Dose Admin Acetaminophen 650 mg 02/08/20 22:28 02/09/20 00:35 Tylenol PO 650 mg Q6H PRN Administration Mild/Mod Pain Or Temp >/= 101 Sodium Chloride 1,000 mls @ 150 m ls/hr 02/08/20 22:30 02/09/20 05:18 Sodium Chloride 0.9% IV 999 mls/hr .Q6H40M TRENT Infusion Levetiracetam 500 mg/ Sodium 105 mls @ 420 mls /hr 02/08/20 23:26 02/09/20 05:18 Chloride IV Infused Q12H TRENT Infusion Potassium Chloride 40 meq in 100 mls @ 25 mls/hr 02/09/20 03:59 02/09/20 04:08 K-Ruben IV 02/09/20 07:58 25 mls/hr ONCE ONE Administration Imipenem/Cilastati n Sodium 500 100 mls @ 200 mls /hr 02/09/20 04:15 02/09/20 05:19 mg/ Sodium Chlor manda IV Infused Q6H TRENT Infusion Protocol Vancomycin HCl 1,5 00 mg/ 250 mls @ 250 mls /hr 02/09/20 05:00 02/09/20 05:50 Sodium Chloride IV 250 mls/hr Q24H TRENT Administration Protocol As Directed Morphine Sulfate 4 mg 02/08/20 22:28 02/09/20 01:35 Morphine IVP 4 mg Q4H PRN Administration SEVERE PAIN Ondansetron HCl 4 mg 02/08/20 22:28 02/09/20 01:40 Zofran IVP 4 mg Q6H PRN Administration vomiting, or N/V if npo Pantoprazole Sodiu m 40 mg 02/08/20 23:26 02/09/20 00:34 Protonix IVP 40 mg Q24H TRENT Administration Quetiapine Fumarat e 300 mg 02/09/20 01:05 02/09/20 01:31 Seroquel PO 300 mg BEDTIME TRENT Administration PFSH Anesthesia PFSH: Medical History (Updated 02/08/20 @ 22:24 by Jose Ramon Doty MD) Anxiety Arthritis Back disorder Bipolar disorder Chronic back pain Depression Seizures Surgical History H/O cervical spine surgery H/O knee surgery H/O shoulder surgery History of thyroid surgery Family History Mother Cancer Breast cancer Father Arthritis Social History Smoking and tobacco status: never smoked Alcohol intake: never Household members: spouse Marital status: Number of children: 1 Female Reproductive History: Date of last menstrual period: 01/25/20 Data Anesthesia CBC & Chem 7: 02/09/20 03:04 02/09/20 03:04 Other Labs: Laboratory Results - last 48 hr 02/08/20 02/08/20 02/08/20 16:33 16:33 16:33 WBC 16.6 H RBC 3.92 L Hgb 9.9 L Hct 32.8 L MCV 83.7 MCH 25.3 L MCHC 30.2 RDW 22.5 H Plt Count 273 MPV 10.5 H Neut % (Auto) 88.6 Lymph % (Auto) 2.5 Barbour % (Auto) 7.4 Eos % (Auto) 0.5 Baso % (Auto) 0.3 Neut # (Auto) 14.73 H Lymph # (Auto) 0.4 L [place] # (Auto) 1.2 H Eos # (Auto) 0.1 Baso # (Auto) 0.1 Nucleated RBC % (auto) 0 Nucleated RBCs # 0.0 Sodium 138 Potassium 2.9 L Chloride 107 Carbon Dioxide 18 L Anion Gap 15.9 BUN 11 Creatinine 1.1 H GFR Calculation 54.2 L Glucose 119 H Calculated Osmolality 283 L Lactic Acid Lactic Acid (Sepsis) Calcium 8.2 L Magnesium Total Bilirubin 0.6 AST 49 H ALT 51 H Alkaline Phosphatase 109 H Total Protein 6.8 Albumin 3.9 Globulin 2.9 HCG, Qual Negative Urine Color Urine Appearance Urine pH Ur Specific Palo Urine Protein Urine Glucose (UA) Urine Ketones Urine Blood Urine Nitrate Urine Bilirubin Urine Urobilinogen Ur Leukocyte Esterase Urine RBC Urine WBC Ur Squamous Epith Cells Amorphous Sediment Urine Bacteria Hepatitis A IgM Ab Hep Bs Antigen Hep B Core IgM Ab Hepatitis C Antibody 02/08/20 02/08/20 02/08/20 16:33 18:05 23:01 WBC RBC Hgb Hct MCV MCH MCHC RDW Plt Count MPV Neut % (Auto) Lymph % (Auto) Barbour % (Auto) Eos % (Auto) Baso % (Auto) Neut # (Auto) Lymph # (Auto) [place] # (Auto) Eos # (Auto) Baso # (Auto) Nucleated RBC % (auto) Nucleated RBCs # Sodium Potassium Chloride Carbon Dioxide Anion Gap BUN Creatinine GFR Calculation Glucose Calculated Osmolality Lactic Acid Lactic Acid (Sepsis) Calcium Magnesium 1.2 L Total Bilirubin AST ALT Alkaline Phosphatase Total Protein Albumin Globulin HCG, Qual Urine Color Yellow Urine Appearance Cloudy Urine pH 6.5 Ur Specific Palo 1.010 Urine Protein 1+ H Urine Glucose (UA) Norm Urine Ketones Negative Urine Blood 2+ H Urine Nitrate Negative Urine Bilirubin Neg Urine Urobilinogen Neg Ur Leukocyte Esterase 2+ H Urine RBC 5-10 H Urine WBC Too numerous to cnt H Ur Squamous Epith Cells 0-4 H Amorphous Sediment Not Reportable Urine Bacteria 3+ H Hepatitis A IgM Ab Non-reactive Hep Bs Antigen Non-reactive Hep B Core IgM Ab Non-reactive Hepatitis C Antibody Non-reactive 02/08/20 02/09/20 02/09/20 23:59 03:04 03:04 WBC 9.4 RBC 2.97 L Hgb 7.5 L Hct 25.6 L MCV 86.2 MCH 25.3 L MCHC 29.3 L RDW 22.4 H Plt Count 114 L MPV 10.3 Neut % (Auto) 84.5 Lymph % (Auto) 3.6 Barbour % (Auto) 9.6 Eos % (Auto) 0.0 Baso % (Auto) 0.1 Neut # (Auto) 7.90 H Lymph # (Auto) 0.3 L [place] # (Auto) 0.9 Eos # (Auto) 0.0 Baso # (Auto) 0.0 Nucleated RBC % (auto) 0 Nucleated RBCs # 0.0 Sodium 140 Potassium 2.6 L* Chloride 117 H Carbon Dioxide 15 L Anion Gap 10.6 BUN 11 Creatinine 1.2 H GFR Calculation 49.0 L Glucose 160 H Calculated Osmolality 289 Lactic Acid 3.4 H Lactic Acid (Sepsis) Calcium 6.6 L Magnesium 1.6 L Total Bilirubin 0.7 AST 21 ALT 30 Alkaline Phosphatase 77 Total Protein 4.8 L D Albumin 2.5 L Globulin 2.3 HCG, Qual Urine Color Urine Appearance Urine pH Ur Specific Palo Urine Protein Urine Glucose (UA) Urine Ketones Urine Blood Urine Nitrate Urine Bilirubin Urine Urobilinogen Ur Leukocyte Esterase Urine RBC Urine WBC Ur Squamous Epith Cells Amorphous Sediment Urine Bacteria Hepatitis A IgM Ab Hep Bs Antigen Hep B Core IgM Ab Hepatitis C Antibody 02/09/20 03:04 WBC RBC Hgb Hct MCV MCH MCHC RDW Plt Count MPV Neut % (Auto) Lymph % (Auto) Barbour % (Auto) Eos % (Auto) Baso % (Auto) Neut # (Auto) Lymph # (Auto) [place] # (Auto) Eos # (Auto) Baso # (Auto) Nucleated RBC % (auto) Nucleated RBCs # Sodium Potassium Chloride Carbon Dioxide Anion Gap BUN Creatinine GFR Calculation Glucose Calculated Osmolality Lactic Acid Lactic Acid (Sepsis) 1.9 Calcium Magnesium Total Bilirubin AST ALT Alkaline Phosphatase Total Protein Albumin Globulin HCG, Qual Urine Color Urine Appearance Urine pH Ur Specific Palo Urine Protein Urine Glucose (UA) Urine Ketones Urine Blood Urine Nitrate Urine Bilirubin Urine Urobilinogen Ur Leukocyte Esterase Urine RBC Urine WBC Ur Squamous Epith Cells Amorphous Sediment Urine Bacteria Hepatitis A IgM Ab Hep Bs Antigen Hep B Core IgM Ab Hepatitis C Antibody Micro: Microbiology 02/08/20 23:59 Blood Culture - Preliminary Blood SPECIMEN COLLECTED 02/08/20 23:59 Blood Culture - Preliminary Blood SPECIMEN COLLECTED Cardiac Studies: No Data to Display
--- NOTE | 2020-02-09 06:08 | PC.NURSE ---
Patient left ICU by OR team at this time for cystoscopy and right uretal stent placement. Offered to notify family member, patient reports she has no family besides and his phone is shut off at this time.
--- NOTE | 2020-02-09 06:25 | PM.EVENT ---
Event Note Event Note: During night had worsening condition is noted on the addendum to the history and physical. Additional 30 minutes spent reviewing case with urology, repeat evaluation of the patient at bedside, expansion of IV antibiotics, testing with noninvasive hemodynamic monitoring, providing more fluid boluses as of the time she appears fluid responsive, and preparing for increasing likelihood she will need norepinephrine. Event Notes Attestations Time Spent in Patient Care: 16 - 35 minutes
--- NOTE | 2020-02-09 06:34 | P.OP_ITS ---
Operative Report Date of procedure: February 09, 2020 Pre-op Diagnosis: Obstructive pyelonephritis, right UPJ stone Post-op diagnosis: same Procedure Done: 1. Cystoscopy with right ureteral stent placement Implants: 7 Italian by 24 cm double-pigtail stent placed without difficulty Pathology: none sent Surgeon: Agustín Anesthesia: MAC Estimated blood loss: Minimal Urine output: Measured Complications: None Findings: 1. Chronic cystitis cystica 2. Retained contrast in the collecting system to the level of the UPJ stone. Large amount of high-pressure purulence drained as soon as wire passed the stone and continued through and around the stent. Condition: critical Disposition: ICU Brief History: Lulu is a 45-year-old white valuated for the first time this morning at the request of Dr. Lalitha Rice. She was admitted through the emergency department last night with evidence of UTI and stone. At admission she was clinically stable with a normal blood pressure, low-grade temperature, leukocytosis. Overnight she clinically worsened with low blood pressures, decreasing urine output, decreasing platelet count count, and development of septic picture. I recommended early this morning and emergent right ureteral stent placement. Procedure: After emergent evaluation examination and obtaining of informed consent she was taken to the operating suite emergently on 02/09/2020 where general anesthesia was administered without difficulty after appropriate timeout was performed, preoperative antibiotics administered, beta-mary protocol confirmed. Prepped and draped in the usual sterile fashion in dorsolithotomy position pain careful attention to avoiding pressure points. 21 Italian cystoscope with 30 degree lens was introduced into urethral meatus and advanced into the bladder under videoscopy. The urethra was somewhat tight but the scope was passable. The bladder was drained and inspected and showed CHRONIC CYSTITIS CYSTICA changes consistent with longstanding urinary tract infection. A flexible tip guidewire was easily advanced up the right ureter bypassing the stone. The proximal collecting system was enhanced with contrast given from the CT scan in the emergency department and wire position was easily confirmed because of that. There was immediate release of high-pressure purulent material around the wire. A 7 Italian by 24 cm double-pigtail stent was then advanced without difficulty over the guidewire through the cystoscope into appropriate position as confirmed via fluoroscopy and cystoscopy. The purulent material continued to drain around and through the stent. The bladder was then drained with a 16 Italian Castillo catheter. She remained hemodynamically stable although critically ill throughout the procedure. Was transported back to the ICU. Hospitalist notified PLANS: 1. We will make plans for definitive treatment of the stone as she is recovered from the infectious condition. 2. We will follow along
--- NOTE | 2020-02-09 06:47 | PC.NURSE ---
Back to room from OR at this time. Pt arrived on 10L simple mask, drowsy but awakens easily to verbal stimulation. Oriented to person, place, and time. Pt weaned to 3L NC. Anesthesia reports did not receive half of 40meq Krider. Ordered another 20meq KCL IV on arrival to unit. Pt able to move all extremities.
--- NOTE | 2020-02-09 07:22 | PC.NURSE ---
Bedside report given to JACK Dutta at this time. Recovery from OR still in progress.
--- NOTE | 2020-02-09 08:03 | P.PN_ITS ---
Subjective Subjective: Interval history: Assuming care of this patient this AM, chart reviewed, now s/p emergent cystoscopy and R ureteral stent placement by Dr. Randolph due to noted clinical decompensation, oliguria. On aggressive IV fluid hydration and pressor support ordered though not started. Also on broad- spectrum IV antibiotics with vancomycin and Primaxin. Noted resolved leukocytosis, drop in hemoglobin from 9.9->7.5, slight worsening in creatinine, noted hypokalemia with IV replacement ongoing, noted hypocalcemia. Overnight was hypotensive, tachycardic, febrile with a T-max of 102.7F, requiring oxygen support. Patient seen and examined several times throughout the day, appears quite pale and with confirmation of significant anemia will transfuse 1 unit of PRBCs. Has spent much of the day sleeping, continues to appear quite fatigued. Has had about 230 mL urine output throughout the day. Blood pressure stable so has not required initiation of pressor support. Medications: Reviewed: Yes Medication Review Details: Active Medications Generic Name Dose Route Start Last Admin Trade Name Freq PRN Reason Stop Dose Admin Acetaminophen 650 mg 02/08/20 22:28 02/09/20 00:35 Tylenol PO 650 mg Q6H PRN Administration Mild/Mod Pain Or Temp >/= 101 Sodium Chloride 1,000 mls @ 150 m ls/hr 02/08/20 22:30 02/09/20 05:59 Sodium Chloride 0.9% IV 150 mls/hr .Q6H40M TRENT Infusion Levetiracetam 500 mg/ Sodium 105 mls @ 420 mls /hr 02/08/20 23:26 02/09/20 05:18 Chloride IV Infused Q12H TRENT Infusion Imipenem/Cilastati n Sodium 500 100 mls @ 200 mls /hr 02/09/20 04:15 02/09/20 05:19 mg/ Sodium Chlor manda IV Infused Q6H TRENT Infusion Protocol Vancomycin HCl 1,5 00 mg/ 250 mls @ 250 mls /hr 02/09/20 05:00 02/09/20 05:50 Sodium Chloride IV 250 mls/hr Q24H TRENT Administration Protocol As Directed Norepinephrine Bit artrate 4 mg 254 mls @ 0 mls/h r 02/09/20 05:00 / Dextrose IV .Q0M TRENT Protocol Per Protocol Potassium Chloride 20 meq in 100 mls @ 50 mls/hr 02/09/20 06:55 02/09/20 07:21 K-Ruben Premix IV 02/09/20 08:54 50 mls/hr ONCE ONE Administration Morphine Sulfate 4 mg 02/08/20 22:28 02/09/20 01:35 Morphine IVP 4 mg Q4H PRN Administration SEVERE PAIN Ondansetron HCl 4 mg 02/08/20 22:28 02/09/20 01:40 Zofran IVP 4 mg Q6H PRN Administration vomiting, or N/V if npo Pantoprazole Sodiu m 40 mg 02/08/20 23:26 02/09/20 00:34 Protonix IVP 40 mg Q24H TRENT Administration Quetiapine Fumarat e 300 mg 02/09/20 01:05 02/09/20 01:31 Seroquel PO 300 mg BEDTIME TRENT Administration haloperidol [From Haldol] Allergy (Verified 02/01/20 11:24) Unknown hydroxyzine [From Vistaril] Allergy (Verified 02/01/20 11:24) Unknown meperidine [From Demerol] Allergy (Verified 02/01/20 11:24) Unknown midazolam [From Versed] Allergy (Verified 02/01/20 11:24) Unknown olanzapine [From Zyprexa] Allergy (Verified 02/01/20 11:24) Unknown prochlorperazine [From Compazine] Allergy (Verified 02/01/20 11:24) Unknown promethazine Allergy (Verified 02/01/20 11:24) Unknown anti-nausea meds except zofran Allergy (Uncoded 02/01/20 11:11) Unknown Vitals/I&O/Wt Last Vital Signs Temp 98.6 F 02/09/20 05:55 Pulse 113 H 02/09/20 06:45 Resp 20 H 02/09/20 05:55 BP 92/65 02/09/20 06:45 Pulse Ox 99 02/09/20 06:45 02/08/20 02/09/20 02/09/20 22:59 06:59 14:59 Intake Total 1945.15 / 1945.15 Output Total 145 / 145 Balance 1800.15 / 1800.15 Weight last 48 hrs Weight 80.966 kg Weight 81.647 kg Physical Exam Const: COMMON NORMALS: no acute distress and patient oriented x3 GENERAL APPEARANCE: cooperative, comfortable, ill appearing and frail appearing NUTRITIONAL APPEARANCE: obese ORIENTATION/CONSCIOUSNESS: Yes awake OTHER: -Appears quite fatigued and very pale HENMT: COMMON NORMALS: normocephalic, atraumatic, hearing grossly normal bilaterally and moist oral mucous membranes HEAD & SCALP: normocephalic and atraumatic TEETH & GINGIVA: Yes poor dentition Eye: COMMON NORMALS: Equal, round and reactive pupils present, EOMs intact bilaterally and conjunctivae normal CONJUNCTIVA: Yes conjunctivae normal PUPIL: Yes Equal, round and reactive pupils present Neck/C-Spine: COMMON NORMALS: full ROM GENERAL: Yes normal visual inspection and Yes trachea midline Resp: COMMON NORMALS: normal respiratory effort, No retractions, No use of accessory muscles and clear to auscultation bilaterally EFFORT & INSPECTION: Yes able to speak in complete sentences, Yes symmetric chest movement and No tachypneic AUSCULTATION: clear to auscultation bilaterally Cardio: COMMON NORMALS: regular rate, regular rhythm, S1 normal heart sound p resent, S2 normal heart sound present and No murmurs present (Cardio) RATE: regular rate RHYTHM: regular rhythm HEART SOUNDS: S1 normal heart sound present and S2 normal heart sound present GI: COMMON NORMALS: Normal to inspection, nondistended, normoactive bowel s ounds present, Soft to palpation and non-tender PALPATION: Yes Soft to palpation : BLADDER/KIDNEY EXAM: Yes catheter in place Catheter type (Female): urethral Extremity: COMMON NORMALS: normal to inspection, full ROM and no clubbing, cyanosis or edema; negative for no pedal edema Neuro: COMMON NORMALS: patient oriented x3, moves all extremities, no focal motor deficits and no sensory deficits noted Psych: COMMON NORMALS: mental status grossly normal, Normal thought process present, cooperative, normal affect and speech normal SPEECH: Yes normal speech THOUGHT PROCESS: Normal thought process present Skin: COMMON NORMALS: no rashes or lesions noted, no jaundice, no petechiae and no mottling GENERAL SKIN EXAM: no rashes or lesions noted Urinary Catheter Management^: Castillo: Cath Placed During This Visit: yes, but has since been removed by the nurse Urinary Catheter Date of Insertion: 02/09/20 Urinary Catheter Time of Insertion: 05:00 Date Urinary Catheter Removed: 08/06/20 Time Urinary Catheter Discontinued: 06:30 Castillo Latex: Cath Placed During This Visit: yes Urinary Catheter Date of Insertion: 02/09/20 Urinary Catheter Time of Insertion: 06:32 Data : 02/09/20 13:25 02/09/20 13:25 Micro: Microbiology 02/08/20 23:59 Blood Culture - Preliminary Blood SPECIMEN COLLECTED 02/08/20 23:59 Blood Culture - Preliminary Blood SPECIMEN COLLECTED A&P Assessment and plan (1) Obstructive pyelonephritis: -Urinalysis strongly indicative of infection -Symptomatic as presented with CVA tenderness, dysuria, nausea/vomiting, malaise -Due to noted deterioration overnight with sepsis, hypotension, fever, and noted oliguria was taken emergently to the OR for cystoscopy and right ureteral stent placement -Appreciate consultation by Dr. Randolph -Per review of operative note patient had findings consistent with chronic cystitis cystica and had large amount of high pressure purulence drained -Has Castillo catheter in place, continue to monitor urine output -Has associated sepsis as evidenced by leukocytosis, tachycardia, hypotension, fever, tachypnea, lactic acidosis. Currently requiring aggressive IV fluid hydration and potentially pressor support -Continue to monitor vital signs closely; currently afebrile, low normal blood pressure, tachypneic and tachycardic -Lactic acidosis resolved with normalization of levels this morning -Continue broad-spectrum IV antibiotic coverage with vancomycin and Primaxin -f/u blood and urine cx -Imaging reviewed with noted right-sided obstructive uropathy -chest x-ray unremarkable -pain control, antiemetics as needed Status: Acute (2) Sepsis: -As noted above Status: Acute Qualifiers: Sepsis acute organ dysfunction status: unspecified Sepsis type: sepsis due to unspecified organism Qualified Code(s): A41.9 - Sepsis, unspecified organism (3) Obstructive uropathy: -As noted above -Continued close monitoring of renal function Status: Acute (4) Bilateral renal stones: -Seen on imaging, non-obstructive Status: Acute (5) Anemia: -Has chronic iron deficiency anemia, baseline hemoglobin appears to be around 9 -LMP-01/24 -Noted drop in hemoglobin this morning from 9.9->7.5, part of which is likely dilutional -Continue to monitor H&H closely; transfuse 1 unit of PRBCs for now, anticipate need for additional blood products Status: Acute Qualifiers: Anemia type: iron deficiency Iron deficiency anemia type: unspecified iron deficiency Qualified Code(s): D50.9 - Iron deficiency anemia, unspecified (6) Hypomagnesemia: -Likely secondary to acute infection, replace as needed Status: Acute (7) Hypokalemia: -Replacement ongoing, continue to monitor levels Status: Acute Additional A&P Information -Obesity: BMI-32 kg/m2 -Hypothyroidism; resume levothyroxine once PO appropriate -Seizure disorder hx: on IV Keppra -Chronic back pain; pain control as needed -Acute thrombocytopenia; likely due to infection, previous platelet levels wnl, continue to monitor; check coags -Transaminitis; likely related to infection, LFTs now normalized -Hypocalcemia; corrected Ca-7.8, contiue to monitor -currently NPO, start on oral intake once appropriate -GI ppx with PPI -DVT ppx with SCDs, no AC due to anemia, thrombocytopenia -Dispo: home -Code status: FULL code -ICU care due to sepsis, low threshold for decompensation Attestations Medical Necessity Statement*: Patient requires hospitalization for continued management of obstructive pyelonephritis s/p emergent R ureteral stent placement, with continued evidence of sepsis, on aggressive IVF and broad spectrum IV antibiotics. Time Spent in Patient Care: Greater than 35 minutes (>than 50% of time spent in counselling and/or direct pt care on unit) . Critical Care Time: The high probability of a clinically significant, sudden or life threatening deterioration of the patient's [cardiovascular, respiratory, hematology] system(s) required my full and direct attention, intervention and p ersonal management. The critical care time is as shown. This time is in addition to time spent performing any reported procedures but includes the following: [x] Data and vital sign review and interpretation [x] Patient assessment, examination and intervention [x] Documentation [x] Medication orders and management Critical Care Time (min): 25 Coding Level of Care Code Acute Physiotherapist'S Assistant for [facility] Fwd Exam Comprehensive Diagnoses Obstructive pyelonephritis N11.1 Sepsis A41.9 Sepsis acute organ dysfunction status: unspecified Sepsis type: sepsis due to unspecified organism Obstructive uropathy N13.9 Bilateral renal stones N20.0 Anemia D50.9 Anemia type: iron deficiency Iron deficiency anemia type: unspecified iron deficiency Hypomagnesemia E83.42 Hypokalemia E87.6
--- NOTE | 2020-02-09 11:39 | PC.NURSE ---
urine meter placed
[2020-02-09 13:44] LABS: Hematocrit 26.2 % (37.0-47.0); Hemoglobin 7.7 g/dL (11.5-15.3); Mean Corpuscular HGB Conc 29.4 g/dL (30.0-36.0); Mean Corpuscular Hemoglobin 25.3 pg (28.0-34.0); Mean Corpuscular Volume 86.2 fL (81-99); Mean Platelet Volume 10.2 fL (7.4-10.4); Platelet Count 104 10^3/cmm (130-400); Red Blood Count 3.04 10^6/uL (4.1-5.3); White Blood Count 18.3 10^3/uL (4.0-10.0)
[2020-02-09 14:10] LABS: Alanine Aminotransferase 28 U/L (0-33); Albumin Level 2.4 g/dL (3.5-5.2); Alkaline Phosphatase 108 IU/L (35-105); Anion Gap 12.7 (5-19); Aspartate Amino Transferase 18 U/L (0-32); Blood Urea Nitrogen 14 mg/dL (6-20); Calcium 6.5 mg/dL (8.5-10.5); Carbon Dioxide 14 mmol/L (22-29); Chloride 116 mmol/L (98-107); Globulin 2.6 g/dL (1.3-4.6); Glomerular Filtration Rate 54.2 mL/min (90-130); Glucose 142 mg/dL (65-115); Magnesium 2.1 mg/dL (1.7-2.3); Osmolality Calculated 287 mOsm/kg (285-295); Potassium 3.7 mmol/L (3.5-5.1); Sodium 139 mmol/L (136-145); Total Bilirubin 0.6 mg/dL (0.15-1.2)
[2020-02-09 14:15] LABS: Slide Review Slide Review Perform
[2020-02-09 14:18] LABS: Absolute Segmented Neutrophil 13.7 10/cmm (1.6-7.1); Band Neutrophils Absolute 2.6 10^3/cmm (0.0-1.2); Lymphocytes 3 %; Monocytes Absolute 0.7 10^3/cmm (0.1-0.6); Segmented Neutrophils 75 %; Total Cells Counted 100 (0-100)
[2020-02-09 14:22] LABS: Absolute Neutrophil 16.3 10^3/cmm (1.4-6.5); Platelet Estimate Normal (Normal)
[2020-02-09] MEDS: sodium chloride 0.9% (100 ml) 100 ML 150 ML (17:50)
--- NOTE | 2020-02-09 17:57 | PC.NURSE ---
prbcs in 1729
[2020-02-09 19:47] LABS: Hematocrit 29.2 % (37.0-47.0); Hemoglobin 8.8 g/dL (11.5-15.3)
[2020-02-09] MEDS: gabapentin 100 mg Capsule 200 MG PO (20:57)
[2020-02-09] MEDS: BuSPIRONE 5 mg Tablet PO (20:57)
[2020-02-09] MEDS: sodium chloride 0.9% 1,000 ML 100 ML IV (21:53)
[2020-02-10] VITALS (26 sets, daily range): BP systolic 87–146; BP diastolic 58–106; PULSE 80–111; RESP 12–26; TEMP 36.9–37.1; O2SAT 96–100
[2020-02-10] MEDS: morphine 4 mg/mL SDV 1 mL 2 MG IVP ×5 (03:37→21:00)
[2020-02-10 03:45] LABS: Basophils # 0.1 10^3/uL (0.0-0.1); Basophils % 0.3 %; Eosinophils % 0.2 %; Hematocrit 28.5 % (37.0-47.0); Hemoglobin 8.7 g/dL (11.5-15.3); Mean Corpuscular HGB Conc 30.5 g/dL (30.0-36.0); Mean Corpuscular Hemoglobin 26.9 pg (28.0-34.0); Monocytes % 5.9 %; Neutrophils # 13.35 10^3/uL (1.8-7.7); Neutrophils % 77.4 %; Nucleated Red Blood Cells % 0 %; Platelet Count 102 10^3/cmm (130-400); Red Blood Count 3.24 10^6/uL (4.1-5.3); Red Cell Distribution Width 21.8 % (12.1-15.1); White Blood Count 17.2 10^3/uL (4.0-10.0)
[2020-02-10 04:13] LABS: Alanine Aminotransferase 22 U/L (0-33); Albumin Level 2.3 g/dL (3.5-5.2); Alkaline Phosphatase 89 IU/L (35-105); Anion Gap 12.2 (5-19); Aspartate Amino Transferase 14 U/L (0-32); Blood Urea Nitrogen 18 mg/dL (6-20); Calcium 7.5 mg/dL (8.5-10.5); Carbon Dioxide 13 mmol/L (22-29); Chloride 115 mmol/L (98-107); Globulin 2.4 g/dL (1.3-4.6); Glucose 80 mg/dL (65-115); Magnesium 2.1 mg/dL (1.7-2.3); Osmolality Calculated 279 mOsm/kg (285-295); Potassium 3.2 mmol/L (3.5-5.1); Sodium 137 mmol/L (136-145); Total Bilirubin 0.4 mg/dL (0.15-1.2); Total Protein 4.7 g/dL (6.6-8.7)
[2020-02-10 04:26] LABS: Calcium 7.4 mg/dL (8.5-10.5)
[2020-02-10 05:12] LABS: Parathyroid Hormone 115.3 pg/mL (15-65)
[2020-02-10 06:20] LABS: Slide Review Slide Review Perform
--- NOTE | 2020-02-10 07:17 | PC.NURSE ---
pt up to [facility] at this time.. related she dug out impaction stool noted with small amt bleeding noted jessica care done
--- NOTE | 2020-02-10 09:09 | P.PN_ITS ---
Subjective Subjective: Interval history: Hypotensive overnight, currently normotensive, remains on IV fluid hydration. Has been afebrile since yesterday morning. On room air. Noted decreased leukocytosis, stable hemoglobin at 8.7, stable platelet count at 102, stable renal function, mild hypokalemia. Had 750 mL urine output overnight. One bowel movement earlier this morning. Calcium harsh lized. Remains on broad-spectrum IV antibiotic coverage. Received 1 unit of PRBCs yesterday afternoon. Is POD # 1 s/p emergent cystoscopy and right ureteral stent placement. Appears fatigued, minimal oral intake, requesting resumption of baclofen, R CVA tenderness persists. Medications: Reviewed: Yes Medication Review Details: Active Medications Generic Name Dose Route Start Last Admin Trade Name Freq PRN Reason Stop Dose Admin Acetaminophen 650 mg 02/08/20 22:28 02/09/20 19:19 Tylenol PO 650 mg Q6H PRN Administration Mild/Mod Pain Or Temp >/= 101 Buspirone HCl 5 mg 02/09/20 21:00 02/09/20 20:57 Buspar PO 5 mg TID TRENT Administration Gabapentin 200 mg 02/09/20 21:00 02/09/20 20:57 Neurontin PO 200 mg BID TRENT Administration Sodium Chloride 1,000 mls @ 100 m ls/hr 02/08/20 22:30 02/09/20 21:53 Sodium Chloride 0.9% IV 100 mls/hr .Q10H TRENT Administration Levetiracetam 500 mg/ Sodium 105 mls @ 420 mls /hr 02/08/20 23:26 02/10/20 04:30 Chloride IV Infused Q12H TRENT Infusion Imipenem/Cilastati n Sodium 500 100 mls @ 200 mls /hr 02/09/20 04:15 02/10/20 04:30 mg/ Sodium Chlor manda IV Infused Q6H TRENT Infusion Protocol Vancomycin HCl 1,5 00 mg/ 250 mls @ 250 mls /hr 02/09/20 05:00 02/10/20 05:00 Sodium Chloride IV 250 mls/hr Q24H TRENT Administration Protocol As Directed Norepinephrine Bit artrate 4 mg 254 mls @ 0 mls/h r 02/09/20 05:00 / Dextrose IV .Q0M TRENT Protocol Per Protocol Morphine Sulfate 2 mg 02/10/20 03:31 02/10/20 07:32 Morphine IVP 2 mg Q4H PRN Administration SEVERE PAIN Ondansetron HCl 4 mg 02/08/20 22:28 02/09/20 20:57 Zofran IVP 4 mg Q6H PRN Administration vomiting, or N/V if npo Pantoprazole Sodiu m 40 mg 02/08/20 23:26 02/09/20 23:21 Protonix IVP 40 mg Q24H TRENT Administration Quetiapine Fumarat e 300 mg 02/09/20 01:05 02/09/20 20:57 Seroquel PO 300 mg BEDTIME TRENT Administration haloperidol [From Haldol] Allergy (Verified 02/01/20 11:24) Unknown hydroxyzine [From Vistaril] Allergy (Verified 02/01/20 11:24) Unknown meperidine [From Demerol] Allergy (Verified 02/01/20 11:24) Unknown midazolam [From Versed] Allergy (Verified 02/01/20 11:24) Unknown olanzapine [From Zyprexa] Allergy (Verified 02/01/20 11:24) Unknown prochlorperazine [From Compazine] Allergy (Verified 02/01/20 11:24) Unknown promethazine Allergy (Verified 02/01/20 11:24) Unknown anti-nausea meds except zofran Allergy (Uncoded 02/01/20 11:11) Unknown Vitals/I&O/Wt Last Vital Signs Temp 98.8 F 02/10/20 05:21 Pulse 85 02/10/20 08:00 Resp 15 02/10/20 08:00 BP 120/89 02/10/20 08:00 Pulse Ox 97 02/10/20 08:00 02/09/20 02/10/20 02/10/20 22:59 06:59 14:59 Intake Total 1432.5 / 2329.85 205 / 2534.85 100 / 100 Output Total 230 / 695 750 / 1445 Balance 1202.5 / 1634.85 -545 / 1089.85 100 / 100 Weight last 48 hrs Weight 80.966 kg Weight 81.647 kg Physical Exam Const: COMMON NORMALS: no acute distress and patient oriented x3 GENERAL APPEARANCE: cooperative, comfortable, ill appearing and frail appearing NUTRITIONAL APPEARANCE: obese ORIENTATION/CONSCIOUSNESS: Yes awake OTHER: -Appears quite fatigued and pale HENMT: COMMON NORMALS: normocephalic, atraumatic, hearing grossly normal bilaterally and moist oral mucous membranes HEAD & SCALP: normocephalic and atraumatic TEETH & GINGIVA: Yes poor dentition Eye: COMMON NORMALS: Equal, round and reactive pupils present, EOMs intact bilaterally and conjunctivae normal CONJUNCTIVA: Yes conjunctivae normal PUPIL: Yes Equal, round and reactive pupils present Neck/C-Spine: COMMON NORMALS: full ROM GENERAL: Yes normal visual inspection and Yes trachea midline Resp: COMMON NORMALS: normal respiratory effort, No retractions, No use of accessory muscles and clear to auscultation bilaterally EFFORT & INSPECTION: Yes able to speak in complete sentences, Yes symmetric chest movement and No tachypneic AUSCULTATION: clear to auscultation bilaterally Cardio: COMMON NORMALS: regular rate, regular rhythm, S1 normal heart sound present, S2 normal heart sound present and No murmurs present (Cardio) RATE: regular rate RHYTHM: regular rhythm HEART SOUNDS: S1 normal heart sound present and S2 normal heart sound present GI: COMMON NORMALS: Normal to inspection, nondistended, normoactive bowel sounds present, Soft to palpation and non-tender PALPATION: Yes Soft to palpation : BLADDER/KIDNEY EXAM: Yes catheter in place Catheter type (Female): urethral and Yes CVA tenderness on the right Back/Pelvis: GENERAL BACK: Yes CVA tenderness Extremity: COMMON NORMALS: normal to inspection, full ROM and no clubbing, cyanosis or edema; negative for no pedal edema Neuro: COMMON NORMALS: patient oriented x3, moves all extremities, no focal motor deficits and no sensory deficits noted Psych: COMMON NORMALS: mental status grossly normal, Normal thought process present, cooperative, normal affect and speech normal SPEECH: Yes normal speech THOUGHT PROCESS: Normal thought process present Skin: COMMON NORMALS: no rashes or lesions noted, no jaundice, no petechiae and no mottling GENERAL SKIN EXAM: no rashes or lesions noted Urinary Catheter Management^: Castillo: Cath Placed During This Visit: yes, but has since been removed by the nurse Urinary Catheter Date of Insertion: 02/09/20 Urinary Catheter Time of Insertion: 05:00 Date Urinary Catheter Removed: 02/09/20 Time Urinary Catheter Discontinued: 06:30 Castillo Latex: Cath Placed During This Visit: yes Reason for Continuing Indwelling Catheter: Acute Urinary Retention or Obstruction Urinary Catheter Date of Insertion: 02/09/20 Urinary Catheter Time of Insertion: 06:32 Data : 02/10/20 03:16 02/10/20 03:16 Micro: Microbiology 02/08/20 23:59 Blood Culture - Preliminary Blood NEGATIVE TO DATE 02/08/20 23:59 Blood Culture - Preliminary Blood NEGATIVE TO DATE A&P Assessment and plan (1) Obstructive pyelonephritis: -Urinalysis strongly indicative of infection -Symptomatic as presented with CVA tenderness, dysuria, nausea/vomiting, malaise -Due to noted deterioration with sepsis, hypotension, fever, and noted oliguria was taken emergently to the OR for cystoscopy and right ureteral stent placement: POD # 1 -Appreciate consultation by Dr. Randolph -Per review of operative note patient had findings consistent with chronic cystitis cystica and had large amount of high pressure purulence drained -Has Castillo catheter in place, continue to monitor urine output -Has associated sepsis as evidenced by leukocytosis, tachycardia, hypotension, fever, tachypnea, lactic acidosis. Currently requiring aggressive IV fluid hydration, has not yet required pressor support -Continue to monitor vital signs closely; has been afebrile x 24 hrs, vital signs stable -Lactic acidosis resolved with normalization of levels this morning -Continue broad-spectrum IV antibiotic coverage with vancomycin and Primaxin -blood cx: prelim negative -f/u urine cx -Imaging reviewed with noted right-sided obstructive uropathy -chest x-ray unremarkable -pain control, antiemetics as needed Status: Acute (2) Sepsis: -As noted above Status: Acute Qualifiers: Sepsis acute organ dysfunction status: unspecified Sepsis type: sepsis due to unspecified organism Qualified Code(s): A41.9 - Sepsis, unspecified organism (3) Obstructive uropathy: -As noted above -Continued close monitoring of renal function Status: Acute (4) Bilateral renal stones: -Seen on imaging, non-obstructive Status: Acute (5) Anemia: -Has chronic iron deficiency anemia, baseline hemoglobin appears to be around 9 -LMP-01/24 -Continue to monitor H&H closely; transfused 1 unit of PRBCs, anticipate need for additional blood products Status: Acute Qualifiers: Anemia type: iron deficiency Iron deficiency anemia type: unspecified iron deficiency Qualified Code(s): D50.9 - Iron deficiency anemia, unspecified (6) Hypomagnesemia: -Likely secondary to acute infection, replace as needed Status: Resolved (7) Hypokalemia: -Replacement ongoing, continue to monitor levels Status: Acute Additional A&P Information -Obesity: BMI-32 kg/m2 -Hypothyroidism; on levothyroxine -Seizure disorder hx: on IV Keppra -Chronic back pain; pain control as needed -Acute thrombocytopenia; likely due to infection, previous platelet levels wnl, continue to monitor; check coags -Transaminitis; likely related to infection, LFTs now normalized -Hypocalcemia; corrected Ca-8.9, contiue to monitor -on CLD, advance as tolerated -GI ppx with PPI -DVT ppx with SCDs, no AC due to anemia, thrombocytopenia -Dispo: home -Code status: FULL code -ICU care due to sepsis, low threshold for decompensation Attestations Medical Necessity Statement*: Patient requires hospitalization for continued treatment of obstructive pyelonephritis with associated sepsis, on aggressive IV fluid hydration, broad-spectrum IV antibiotics. Time Spent in Patient Care: 16 - 35 minutes (>than 50% of time spent in counselling and/or direct pt care on unit) . Coding Level of Care Code Acute Residential Support Specialist for g Fwd Exam Comprehensive Diagnoses Obstructive pyelonephritis N11.1 Sepsis A41.9 Sepsis acute organ dysfunction status: unspecified Sepsis type: sepsis due to unspecified organism Obstructive uropathy N13.9 Bilateral renal stones N20.0 Anemia D50.9 Anemia type: iron deficiency Iron deficiency anemia type: unspecified iron deficiency Hypomagnesemia E83.42 Hypokalemia E87.6
[2020-02-10] MEDS: potassium chloride premix 40 MEQ/100 ML PREMIX 25 MEQ IV (09:37)
[2020-02-10] MEDS: lidocaine 1% INJ 20 mL 5 ML IV (09:44)
[2020-02-10] MEDS: gabapentin 100 mg Capsule 200 MG PO ×2 (10:03→17:20)
[2020-02-10] MEDS: BuSPIRONE 5 mg Tablet PO ×3 (10:03→21:02)
[2020-02-10] MEDS: sodium chloride 0.9% 1,000 ML 100 ML IV ×2 (11:44→21:02)
[2020-02-10] MEDS: acetaminophen 325 mg Tablet 650 MG PO ×2 (11:45→20:06)
[2020-02-10] MEDS: baclofen 10 mg Tablet 20 MG PO (14:30)
--- NOTE | 2020-02-10 17:45 | PC.NURSE ---
refused laxitive at this time again states will take tonight
[2020-02-10] MEDS: quetiapine 300 mg Tablet PO (21:01)
[2020-02-11] VITALS (28 sets, daily range): BP systolic 107–152; BP diastolic 70–103; PULSE 70–93; RESP 12–24; TEMP 36.3–36.7; O2SAT 95–100
[2020-02-11] MEDS: pantoprazole 40 mg SDV IVP (00:15)
[2020-02-11] MEDS: morphine 4 mg/mL SDV 1 mL 2 MG IVP ×5 (01:03→21:14)
[2020-02-11] MEDS: acetaminophen 325 mg Tablet 650 MG PO (03:26)
[2020-02-11] MEDS: sodium chloride 0.9% 1,000 ML 100 ML IV (03:28)
[2020-02-11 04:09] LABS: Alanine Aminotransferase 14 U/L (0-33); Alkaline Phosphatase 101 IU/L (35-105); Blood Urea Nitrogen 12 mg/dL (6-20); Calcium 7.1 mg/dL (8.5-10.5); Carbon Dioxide 11 mmol/L (22-29); Chloride 120 mmol/L (98-107); Globulin 2.6 g/dL (1.3-4.6); Glomerular Filtration Rate 78.3 mL/min (90-130); Glucose 76 mg/dL (65-115); Magnesium 1.7 mg/dL (1.7-2.3); Osmolality Calculated 283 mOsm/kg (285-295); Sodium 139 mmol/L (136-145); Total Bilirubin 0.4 mg/dL (0.15-1.2); Total Protein 4.6 g/dL (6.6-8.7)
[2020-02-11 04:26] LABS: Anion Gap 11.1 (5-19); Aspartate Amino Transferase 11 U/L (0-32); Potassium 3.1 mmol/L (3.5-5.1)
--- NOTE | 2020-02-11 05:57 | PC.NURSE ---
Pt refusing to turn for majority of the night. Pt asked to get up to the chair, refusing at this time. Pt has drank multiple glasses of water and complains of pain consistently at an 8 from 'kidney' area. Pain medication given Q4H per pt request.
[2020-02-11 06:26] LABS: Basophils % 0.3 %; Eosinophils # 0.2 10^3/uL (0.0-0.8); Eosinophils % 1.7 %; Hematocrit 27.9 % (37.0-47.0); Hemoglobin 8.5 g/dL (11.5-15.3); Lymphocytes # 0.9 10^3/uL (0.8-4.8); Lymphocytes % 6.3 %; Mean Corpuscular HGB Conc 30.5 g/dL (30.0-36.0); Mean Corpuscular Hemoglobin 25.9 pg (28.0-34.0); Mean Corpuscular Volume 85.1 fL (81-99); Monocytes # 0.6 10^3/uL (0.2-0.9); Monocytes % 4.5 %; Neutrophils # 12.21 10^3/uL (1.8-7.7); Neutrophils % 85.7 %; Nucleated Red Blood Cells % 0 %; Platelet Count 111 10^3/cmm (130-400); Red Blood Count 3.28 10^6/uL (4.1-5.3); Red Cell Distribution Width 21.5 % (12.1-15.1); White Blood Count 14.2 10^3/uL (4.0-10.0)
--- NOTE | 2020-02-11 07:37 | PC.NURSE ---
requested to be pulled up in bed and refused am brk.. want real food' this am
--- NOTE | 2020-02-11 08:08 | PC.NURSE ---
pt up [facility] .. refuses to take laxatives and today again removed impaction herself with bleeding noted again.. caution pt that she should not be doing that and needs to take lax
--- NOTE | 2020-02-11 08:29 | PM.PN ---
Subjective Subjective: Interval history: Hemodynamically stable, afebrile, had 1800 mL urine output overnight, continues to have decreasing leukocytosis, stable hemoglobin at 8.5, normalized renal function, mild hypokalemia, stable platelet count at 111. Had a bowel movement earlier this morning. Will discontinue IV fluid hydration. Continue IV antibiotic coverage. She is POD # 2 s/p emergent cystoscopy and right ureteral stent placement. Requesting regular diet and resumption of her home medications. Medications: Reviewed: Yes Medication Review Details: Active Medications Generic Name Dose Route Start Last Admin Trade Name Freq PRN Reason Stop Dose Admin Acetaminophen 650 mg 02/08/20 22:28 02/11/20 03:26 Tylenol PO 650 mg Q6H PRN Administration Mild/Mod Pain Or Temp >/= 101 Baclofen 20 mg 02/10/20 14:45 02/10/20 14:30 Lioresal PO 20 mg BID TRENT Administration Buspirone HCl 5 mg 02/09/20 21:00 02/10/20 21:02 Buspar PO 5 mg TID TRENT Administration Gabapentin 200 mg 02/09/20 21:00 02/10/20 17:20 Neurontin PO 200 mg BID TRENT Administration Imipenem/Cilastati n Sodium 500 100 mls @ 200 mls /hr 02/09/20 04:15 02/11/20 03:26 mg/ Sodium Chlor manda IV 200 mls/hr Q6H TRENT Administration Protocol Vancomycin HCl 1,5 00 mg/ 250 mls @ 250 mls /hr 02/09/20 05:00 02/11/20 05:26 Sodium Chloride IV 250 mls/hr Q24H TRENT Administration Protocol As Directed Levetiracetam 500 mg 02/11/20 09:00 Keppra PO BID TRENT Morphine Sulfate 2 mg 02/10/20 03:31 02/11/20 05:27 Morphine IVP 2 mg Q4H PRN Administration SEVERE PAIN Ondansetron HCl 4 mg 02/08/20 22:28 02/09/20 20:57 Zofran IVP 4 mg Q6H PRN Administration vomiting, or N/V if npo Pantoprazole Sodiu m 40 mg 02/11/20 09:00 Protonix PO DAILY TRENT Polyethylene Glyco l 17 gm 02/10/20 11:30 02/10/20 11:56 Miralax PO Not Given DAILY TRENT Quetiapine Fumarat e 300 mg 02/09/20 01:05 02/10/20 21:01 Seroquel PO 300 mg BEDTIME TRENT Administration Senna/Docusate Sod ium 2 tab 02/10/20 11:30 02/10/20 17:30 Senna-S PO Not Given BID TRENT haloperidol [From Haldol] Allergy (Verified 02/01/20 11:24) Unknown hydroxyzine [From Vistaril] Allergy (Verified 02/01/20 11:24) Unknown meperidine [From Demerol] Allergy (Verified 02/01/20 11:24) Unknown midazolam [From Versed] Allergy (Verified 02/01/20 11:24) Unknown olanzapine [From Zyprexa] Allergy (Verified 02/01/20 11:24) Unknown prochlorperazine [From Compazine] Allergy (Verified 02/01/20 11:24) Unknown promethazine Allergy (Verified 02/01/20 11:24) Unknown anti-nausea meds except zofran Allergy (Uncoded 02/01/20 11:11) Unknown Vitals/I&O/Wt Last Vital Signs Temp 97.8 F 02/11/20 08:00 Pulse 75 02/11/20 08:00 Resp 18 02/11/20 08:00 BP 136/96 02/11/20 08:00 Pulse Ox 97 02/11/20 08:00 02/10/20 02/11/20 02/11/20 22:59 06:59 14:59 Intake Total 2185 / 3765 848.333 / 4613.333 200 / 200 Output Total 1400 / 2150 1800 / 3950 Balance 785 / 1615 -951.667 / 663.333 200 / 200 Physical Exam Const: COMMON NORMALS: no acute distress and patient oriented x3 GENERAL APPEARANCE: cooperative, comfortable, ill appearing and frail appearing NUTRITIONAL APPEARANCE: obese ORIENTATION/CONSCIOUSNESS: Yes awake OTHER: -Appears quite fatigued and pale HENMT: COMMON NORMALS: normocephalic, atraumatic, hearing grossly normal bilaterally and moist oral mucous membranes HEAD & SCALP: normocephalic and atraumatic TEETH & GINGIVA: Yes poor dentition Eye: COMMON NORMALS: Equal, round and reactive pupils present, EOMs intact bilaterally and conjunctivae normal CONJUNCTIVA: Yes conjunctivae normal PUPIL: Yes Equal, round and reactive pupils present Neck/C-Spine: COMMON NORMALS: full ROM GENERAL: Yes normal visual inspection and Yes trachea midline Resp: COMMON NORMALS: normal respiratory effort, No retractions, No use of accessory muscles and clear to auscultation bilaterally EFFORT & INSPECTION: Yes able to speak in complete sentences, Yes symmetric chest movement and No tachypneic AUSCULTATION: clear to auscultation bilaterally Cardio: COMMON NORMALS: regular rate, regular rhythm, S1 normal heart sound present, S2 normal heart sound present and No murmurs present (Cardio) RATE: regular rate RHYTHM: regular rhythm HEART SOUNDS: S1 normal heart sound present and S2 normal heart sound present GI: COMMON NORMALS: Normal to inspection, nondistended, normoactive bowel sounds present, Soft to palpation and non-tender PALPATION: Yes Soft to palpation : BLADDER/KIDNEY EXAM: Yes catheter in place Catheter type (Female): urethral and Yes CVA tenderness on the right Back/Pelvis: GENERAL BACK: Yes CVA tenderness Extremity: COMMON NORMALS: normal to inspection, full ROM and no clubbing, cyanosis or edema; negative for no pedal edema Neuro: COMMON NORMALS: patient oriented x3, moves all extremities, no focal motor deficits and no sensory deficits noted Psych: COMMON NORMALS: mental status grossly normal, Normal thought process present, cooperative, normal affect and speech normal SPEECH: Yes normal speech THOUGHT PROCESS: Normal thought process present Skin: COMMON NORMALS: no rashes or lesions noted, no jaundice, no petechiae and no mottling GENERAL SKIN EXAM: no rashes or lesions noted Urinary Catheter Management^: Castillo: Cath Placed During This Visit: yes, but has since been removed by the nurse Urinary Catheter Date of Insertion: 02/09/20 Urinary Catheter Time of Insertion: 05:00 Date Urinary Catheter Removed: 02/09/20 Time Urinary Catheter Discontinued: 06:30 Castillo Latex: Cath Placed During This Visit: yes Reason for Continuing Indwelling Catheter: Accurate Measurement of Urinary Output in Critically Ill Patients Urinary Catheter Date of Insertion: 02/09/20 Urinary Catheter Time of Insertion: 06:32 Data : 02/11/20 06:15 02/11/20 03:17 Micro: Microbiology 02/08/20 18:05 Urine Culture - Final Urine,Clean Catch Escherichia coli A&P Assessment and plan (1) Obstructive pyelonephritis: -Urinalysis strongly indicative of infection -Symptomatic as presented with CVA tenderness, dysuria, nausea/vomiting, malaise -Due to noted deterioration with sepsis, hypotension, fever, and noted oliguria was taken emergently to the OR for cystoscopy and right ureteral stent placement: POD # 2 -Appreciate consultation by Dr. Randolph -Per review of operative note patient had findings consistent with chronic cystitis cystica and had large amount of high pressure purulence drained -Has Castillo catheter in place, continue to monitor urine output; significantly improved over the past 24 to 36 hours -Has associated sepsis as evidenced by leukocytosis, tachycardia, hypotension, fever, tachypnea, lactic acidosis. Hemodynamically stable, has been afebrile x48 hours, decreasing leukocytosis, lactic acidosis resolved -Continue to monitor vital signs closely; currently stable -has been on broad-spectrum IV antibiotic coverage with vancomycin and Primaxin; will d/c Vanc -blood cx: prelim negative -urine cx: E.coli, sensitivity noted -Imaging reviewed with noted right-sided obstructive uropathy -chest x-ray unremarkable -pain control, antiemetics as needed Status: Acute (2) Sepsis: -As noted above Status: Resolved Qualifiers: Sepsis acute organ dysfunction status: unspecified Sepsis type: sepsis due to unspecified organism Qualified Code(s): A41.9 - Sepsis, unspecified organism (3) Obstructive uropathy: -As noted above -Continued close monitoring of renal function Status: Acute (4) Bilateral renal stones: -Seen on imaging, non-obstructive Status: Acute (5) Anemia: -Has chronic iron deficiency anemia, baseline hemoglobin appears to be around 9 -LMP-01/24 -Continue to monitor H&H closely; transfused 1 unit of PRBCs (02/08), anticipate need for additional blood products Status: Acute Qualifiers: Anemia type: iron deficiency Iron deficiency anemia type: unspecified iron deficiency Qualified Code(s): D50.9 - Iron deficiency anemia, unspecified (6) Hypomagnesemia: -Likely secondary to acute infection, replace as needed Status: Resolved (7) Hypokalemia: -Replacement ongoing, continue to monitor levels Status: Acute Additional A&P Information -Obesity: BMI-32 kg/m2 -Hypothyroidism; on levothyroxine -Seizure disorder hx: on IV Keppra; switch to PO -Chronic back pain; pain control as needed -Acute thrombocytopenia; likely due to infection, previous platelet levels wnl, continue to monitor; coags wnl -Transaminitis; likely related to infection, LFTs now normalized -Hypocalcemia; corrected Ca-8.7, continue to monitor -advance to regular diet -GI ppx with PPI -DVT ppx with SCDs, no AC due to anemia, thrombocytopenia -Dispo: home -Code status: FULL code -ICU care due to sepsis, low threshold for decompensation Attestations Medical Necessity Statement*: Patient requires hospitalization for continued management of obstructive pyelonephritis, on IV antibiotics, pending improved PO tolerance. Time Spent in Patient Care: 16 - 35 minutes (>than 50% of time spent in counselling and/or direct pt care on unit). Coding Level of Care Code Acute Property Disposal Manager for g Fwd Exam Comprehensive Diagnoses Obstructive pyelonephritis N11.1 Sepsis A41.9 Sepsis acute organ dysfunction status: unspecified Sepsis type: sepsis due to unspecified organism Obstructive uropathy N13.9 Bilateral renal stones N20.0 Anemia D50.9 Anemia type: iron deficiency Iron deficiency anemia type: unspecified iron deficiency Hypomagnesemia E83.42 Hypokalemia E87.6
--- NOTE | 2020-02-11 08:51 | PC.NURSE ---
pt requesting pain med iv not time for dose
[2020-02-11] MEDS: baclofen 10 mg Tablet 20 MG PO ×2 (09:53→17:16)
[2020-02-11] MEDS: pantoprazole DR 40 mg Tablet PO (09:53)
[2020-02-11] MEDS: gabapentin 100 mg Capsule 200 MG PO ×2 (09:53→17:15)
[2020-02-11] MEDS: BuSPIRONE 5 mg Tablet PO ×3 (09:54→21:14)
[2020-02-11] MEDS: sennosides-docusate Tablet 2 TAB PO (09:54)
[2020-02-11] MEDS: polyethylene glycol 3350 Pkt 17 gm PO (09:54)
[2020-02-11] MEDS: potassium chloride oral liq 20 mEq/15 mL UDC 40 MEQ PO (09:54)
[2020-02-11] MEDS: levETIRAcetam 500 mg Tablet PO ×2 (09:54→17:15)
[2020-02-11] MEDS: morphine ER (12 HR) 15 mg Tablet PO (17:15)
[2020-02-11] MEDS: quetiapine 300 mg Tablet PO (21:14)
[2020-02-11] MEDS: prazosin 1 mg Capsule 2 MG PO (21:14)
[2020-02-12] VITALS (18 sets, daily range): BP systolic 106–139; BP diastolic 73–95; PULSE 64–88; RESP 11–24; TEMP 36.7; O2SAT 95–100
[2020-02-12] MEDS: morphine 4 mg/mL SDV 1 mL 2 MG IVP ×3 (03:40→17:29)
[2020-02-12 04:08] LABS: Basophils % 0.3 %; Eosinophils # 0.3 10^3/uL (0.0-0.8); Eosinophils % 2.7 %; Hematocrit 27.7 % (37.0-47.0); Hemoglobin 8.6 g/dL (11.5-15.3); Lymphocytes # 1.4 10^3/uL (0.8-4.8); Lymphocytes % 12.3 %; Mean Corpuscular Hemoglobin 26.1 pg (28.0-34.0); Mean Corpuscular Volume 84.2 fL (81-99); Mean Platelet Volume 12.1 fL (7.4-10.4); Monocytes % 8.6 %; Neutrophils % 75.2 %; Nucleated Red Blood Cells % 0 %; Platelet Count 121 10^3/cmm (130-400); Red Blood Count 3.29 10^6/uL (4.1-5.3); Red Cell Distribution Width 21.2 % (12.1-15.1); White Blood Count 11.4 10^3/uL (4.0-10.0)
[2020-02-12 04:14] LABS: Anion Gap 8.8 (5-19); Blood Urea Nitrogen 11 mg/dL (6-20); Carbon Dioxide 15 mmol/L (22-29); Chloride 119 mmol/L (98-107); Glomerular Filtration Rate 68.3 mL/min (90-130); Glucose 82 mg/dL (65-115); Osmolality Calculated 285 mOsm/kg (285-295); Sodium 140 mmol/L (136-145)
[2020-02-12 04:36] LABS: Potassium 2.8 mmol/L (3.5-5.1)
[2020-02-12] MEDS: potassium chloride premix 40 MEQ/100 ML PREMIX 25 MEQ IV (04:52)
--- NOTE | 2020-02-12 06:59 | PC.NURSE ---
anxious c/o of iv hurting tearful wants pain med
--- NOTE | 2020-02-12 07:43 | P.PN_ITS ---
Subjective Subjective: Interval history: Hemodynamically stable, afebrile, had 2000 mL urine output overnight. Decreasing leukocytosis, stable hemoglobin at 8.6, hypokalemia with ongoing replacement, stable platelet count at 121. POD # 3 s/p emergent cystoscopy and right ureteral stent placement. Pallor seems less apparent today, also seems to be more alert, good appetite, requesting resumpti on of her levothyroxine. Medications: Reviewed: Yes Medication Review Details: Active Medications Generic Name Dose Route Start Last Admin Trade Name Freq PRN Reason Stop Dose Admin Acetaminophen 650 mg 02/08/20 22:28 02/11/20 03:26 Tylenol PO 650 mg Q6H PRN Administration Mild/Mod Pain Or Temp >/= 101 Baclofen 20 mg 02/10/20 14:45 02/11/20 17:16 Lioresal PO 20 mg BID TRENT Administration Buspirone HCl 5 mg 02/09/20 21:00 02/11/20 21:14 Buspar PO 5 mg TID TRENT Administration Ciprofloxacin HCl 500 mg 02/12/20 09:00 Cipro PO BID TRENT Protocol Gabapentin 200 mg 02/09/20 21:00 02/11/20 17:15 Neurontin PO 200 mg BID TRENT Administration Hydromorphone HCl 8 mg 02/11/20 18:00 02/11/20 17:15 Dilaudid Tab PO 8 mg BID TRENT Administration Potassium Chloride 40 meq in 100 mls @ 25 mls/hr 02/12/20 04:38 02/12/20 04:52 K-Ruben IV 02/12/20 08:37 25 mls/hr ONCE ONE Administration Levetiracetam 500 mg 02/11/20 09:00 02/11/20 17:15 Keppra PO 500 mg BID TRENT Administration Morphine Sulfate 2 mg 02/10/20 03:31 02/12/20 06:56 Morphine IVP 2 mg Q4H PRN Administration SEVERE PAIN Morphine Sulfate 15 mg 02/11/20 18:00 02/11/20 17:15 Ms Contin PO 15 mg BID TRENT Administration Naloxone HCl 0.4 mg 02/11/20 09:43 Narcan IVP PRN PRN RESPIRATORY RATE < 8/MIN Ondansetron HCl 4 mg 02/08/20 22:28 02/09/20 20:57 Zofran IVP 4 mg Q6H PRN Administration vomiting, or N/V if npo Pantoprazole Sodiu m 40 mg 02/11/20 09:00 02/11/20 09:53 Protonix PO 40 mg DAILY TRENT Administration Polyethylene Glyco l 17 gm 02/10/20 11:30 02/11/20 09:54 Miralax PO 17 gm DAILY TRENT Administration Potassium Chloride 40 meq 02/11/20 09:00 02/11/20 09:54 Potassium Chlori de Oral Liquid PO 40 meq DAILY TRENT Administration Prazosin HCl 2 mg 02/11/20 21:00 02/11/20 21:14 Minipress PO 2 mg BEDTIME TRENT Administration Quetiapine Fumarat e 300 mg 02/09/20 01:05 02/11/20 21:14 Seroquel PO 300 mg BEDTIME TRENT Administration Senna/Docusate Sod ium 2 tab 02/10/20 11:30 02/11/20 17:21 Senna-S PO Not Given BID TRENT haloperidol [From Haldol] Allergy (Verified 02/01/20 11:24) Unknown hydroxyzine [From Vistaril] Allergy (Verified 02/01/20 11:24) Unknown meperidine [From Demerol] Allergy (Verified 02/01/20 11:24) Unknown midazolam [From Versed] Allergy (Verified 02/01/20 11:24) Unknown olanzapine [From Zyprexa] Allergy (Verified 02/01/20 11:24) Unknown prochlorperazine [From Compazine] Allergy (Verified 02/01/20 11:24) Unknown promethazine Allergy (Verified 02/01/20 11:24) Unknown anti-nausea meds except zofran Allergy (Uncoded 02/01/20 11:11) Unknown Vitals/I&O/Wt Last Vital Signs Temp 98.0 F 02/11/20 20:00 Pulse 79 02/12/20 06:00 Resp 19 H 02/12/20 06:00 BP 123/79 02/12/20 06:00 Pulse Ox 96 02/12/20 06:00 02/11/20 02/12/20 02/12/20 22:59 06:59 14:59 Intake Total 340 / 1190 340 / 1530 Output Total 1000 / 2800 2000 / 4800 Balance -660 / -1610 -1660 / -3270 Physical Exam Const: COMMON NORMALS: no acute distress, patient oriented x3 and alert GENERAL APPEARANCE: cooperative, comfortable and appears older than stated age NUTRITIONAL APPEARANCE: obese ORIENTATION/CONSCIOUSNESS: Yes awake OTHER: -Appears less fatigued and pale today HENMT: COMMON NORMALS: normocephalic, atraumatic, hearing grossly normal bilaterally and moist oral mucous membranes HEAD & SCALP: normocephalic and atraumatic TEETH & GINGIVA: Yes poor dentition Eye: COMMON NORMALS: Equal, round and reactive pupils present, EOMs intact bilaterally and conjunctivae normal CONJUNCTIVA: Yes conjunctivae normal PUPIL: Yes Equal, round and reactive pupils present Neck/C-Spine: COMMON NORMALS: full ROM GENERAL: Yes normal visual inspection and Yes trachea midline Resp: COMMON NORMALS: normal respiratory effort, No retractions, No use of accessory muscles and clear to auscultation bilaterally EFFORT & INSPECTION: Yes able to speak in complete sentences, Yes symmetric chest movement and No tachypneic AUSCULTATION: clear to auscultation bilaterally Cardio: COMMON NORMALS: regular rate, regular rhythm, S1 normal heart sound present, S2 normal heart sound present and No murmurs present (Cardio) RATE: regular rate RHYTHM: regular rhythm HEART SOUNDS: S1 normal heart sound present and S2 normal heart sound present GI: COMMON NORMALS: Normal to inspection, nondistended, normoactive bowel sounds present, Soft to palpation and non-tender PALPATION: Yes Soft to palpation : BLADDER/KIDNEY EXAM: Yes catheter in place Catheter type (Female): urethral and Yes CVA tenderness on the right Back/Pelvis: GENERAL BACK: Yes CVA tenderness Extremity: COMMON NORMALS: normal to inspection, full ROM and no clubbing, cyanosis or edema; negative for no pedal edema Neuro: COMMON NORMALS: patient oriented x3, moves all extremities, no focal motor deficits and no sensory deficits noted SENSORIUM/ORIENTATION: Yes alert Psych: COMMON NORMALS: mental status grossly normal, Normal thought process present, cooperative, normal affect and speech normal SPEECH: Yes normal speech THOUGHT PROCESS: Normal thought process present Skin: COMMON NORMALS: no rashes or lesions noted, no jaundice, no petechiae and no mottling GENERAL SKIN EXAM: no rashes or lesions noted Urinary Catheter Management^: Castillo: Cath Placed During This Visit: yes, but has since been removed by the nurse Urinary Catheter Date of Insertion: 02/09/20 Urinary Catheter Time of Insertion: 05:00 Date Urinary Catheter Removed: 02/09/20 Time Urinary Catheter Discontinued: 06:30 Castillo Latex: Cath Placed During This Visit: yes Reason for Continuing Indwelling Catheter: Accurate Measurement of Urinary Ou tput in Critically Ill Patients Urinary Catheter Date of Insertion: 02/09/20 Urinary Catheter Time of Insertion: 06:32 Data : 02/12/20 03:26 02/12/20 13:51 Micro: Microbiology 02/08/20 18:05 Urine Culture - Final Urine,Clean Catch Escherichia coli A&P Assessment and plan (1) Obstructive pyelonephritis: -Urinalysis strongly indicative of infection -Symptomatic as presented with CVA tenderness, dysuria, nausea/vomiting, malaise -Due to noted deterioration with sepsis, hypotension, fever, and noted oliguria was taken emergently to the OR for cystoscopy and right ureteral stent pl acement: POD # 3 -Appreciate consultation by Dr. Randolph -Per review of operative note patient had findings consistent with chronic cystitis cystica and had large amount of high pressure purulence drained -Has Castillo catheter in place, continue to monitor urine output; significantly improved over the past 24 to 36 hours -Has associated sepsis as evidenced by leukocytosis, tachycardia, hypotension, fever, tachypnea, lactic acidosis. Hemodynamically stable, has been afebrile x48 hours, decreasing leukocytosis, lactic acidosis resolved -Continue to monitor vital signs closely; currently stable -d/c IV abx and switch to Ciprofloxacin PO per sensitivity profile -blood cx: negative -urine cx: E.coli, sensitivity noted -Imaging reviewed with noted right-sided obstructive uropathy -chest x-ray unremarkable -pain control, antiemetics as needed Status: Acute (2) Sepsis: -As noted above Status: Resolved Qualifiers: Sepsis acute organ dysfunction status: unspecified Sepsis type: sepsis due to unspecified organism Qualified Code(s): A41.9 - Sepsis, unspecified organism (3) Obstructive uropathy: -As noted above -Continued close monitoring of renal function Status: Acute (4) Bilateral renal stones: -Seen on imaging, non-obstructive Status: Acute (5) Anemia: -Has chronic iron deficiency anemia, baseline hemoglobin appears to be around 9 -LMP-01/24 -Continue to monitor H&H closely; transfused 1 unit of PRBCs (02/08), anticipate need for additional blood products Status: Acute Qualifiers: Anemia type: iron deficiency Iron deficiency anemia type: unspecified iron deficiency Qualified Code(s): D50.9 - Iron deficiency anemia, unspecified (6) Hypomagnesemia: -Likely secondary to acute infection, replace as needed Status: Resolved (7) Hypokalemia: -Replacement ongoing, continue to monitor levels Status: Acute Additional A&P Information -Obesity: BMI-32 kg/m2 -Hypothyroidism; on levothyroxine -Seizure disorder hx: on Keppra -Chronic back pain; pain control as needed -Acute thrombocytopenia; likely due to infection, previous platelet levels wnl, continue to monitor; coags wnl -Transaminitis; likely related to infection, LFTs now normalized -Hypocalcemia; corrected Ca-9.6, continue to monitor -regular diet -GI ppx with PPI -DVT ppx with SCDs, no AC due to anemia, thrombocytopenia -Dispo: home -Code status: FULL code -transfer to floor for continued care Attestations Medical Necessity Statement*: Patient requires hospitalization for continued treatment of obstructive pyelonephritis, switch to oral antibiotics today. Time Spent in Patient Care: 16 - 35 minutes (>than 50% of time spent in counselling and/or direct pt care on unit) . Coding Level of Care Code Acute Addiction Therapist for Chg Fwd Exam Comprehensive Diagnoses Obstructive pyelonephritis N11.1 Sepsis A41.9 Sepsis acute organ dysfunction status: unspecified Sepsis type: sepsis due to unspecified organism Obstructive uropathy N13.9 Bilateral renal stones N20.0 Anemia D50.9 Anemia type: iron deficiency Iron deficiency anemia type: unspecified iron deficiency Hypomagnesemia E83.42 Hypokalemia E87.6
--- NOTE | 2020-02-12 07:49 | PC.NURSE ---
am brk served but pt refuses to eat until thyroid restarted pending visit
[2020-02-12] MEDS: morphine ER (12 HR) 15 mg Tablet PO ×2 (09:36→17:29)
[2020-02-12] MEDS: levETIRAcetam 500 mg Tablet PO ×2 (09:36→17:28)
[2020-02-12] MEDS: potassium chloride ER 10 mEq Tablet 40 MEQ PO ×3 (09:36→15:43)
[2020-02-12] MEDS: pantoprazole DR 40 mg Tablet PO (09:36)
[2020-02-12] MEDS: sennosides-docusate Tablet 2 TAB PO ×2 (09:36→17:24)
[2020-02-12] MEDS: gabapentin 100 mg Capsule 200 MG PO ×2 (09:37→17:24)
[2020-02-12] MEDS: baclofen 10 mg Tablet 20 MG PO ×2 (09:37→17:24)
[2020-02-12] MEDS: ciprofloxacin 500 mg Tablet PO ×2 (09:37→17:23)
[2020-02-12] MEDS: BuSPIRONE 5 mg Tablet PO ×3 (09:37→21:01)
[2020-02-12 14:25] LABS: Potassium 3.4 mmol/L (3.5-5.1)
--- NOTE | 2020-02-12 18:14 | PC.NURSE ---
transfered to room 250 at this time report given
[2020-02-12] MEDS: quetiapine 300 mg Tablet PO (21:01)
[2020-02-12] MEDS: prazosin 1 mg Capsule 2 MG PO (21:01)
[2020-02-12] MEDS: acetaminophen 325 mg Tablet 650 MG PO (22:52)
[2020-02-13] VITALS (8 sets, daily range): BP systolic 110–133; BP diastolic 78–86; PULSE 69–84; RESP 16–20; TEMP 36.4–37.3; O2SAT 94–98
[2020-02-13 04:38] LABS: Basophils # 0.1 10^3/uL (0.0-0.1); Basophils % 0.7 %; Eosinophils # 0.3 10^3/uL (0.0-0.8); Eosinophils % 3.8 %; Hematocrit 28.8 % (37.0-47.0); Lymphocytes # 1.2 10^3/uL (0.8-4.8); Lymphocytes % 16.8 %; Mean Corpuscular HGB Conc 31.3 g/dL (30.0-36.0); Mean Corpuscular Hemoglobin 26.5 pg (28.0-34.0); Mean Platelet Volume 11.4 fL (7.4-10.4); Monocytes # 0.8 10^3/uL (0.2-0.9); Monocytes % 11.1 %; Neutrophils # 4.65 10^3/uL (1.8-7.7); Neutrophils % 63.8 %; Nucleated Red Blood Cells % 0 %; Platelet Count 167 10^3/cmm (130-400); Red Blood Count 3.39 10^6/uL (4.1-5.3); Red Cell Distribution Width 20.4 % (12.1-15.1); White Blood Count 7.3 10^3/uL (4.0-10.0)
[2020-02-13 04:55] LABS: Potassium 3.1 mmol/L (3.5-5.1)
[2020-02-13] MEDS: acetaminophen 325 mg Tablet 650 MG PO ×2 (05:47→15:52)
[2020-02-13] MEDS: ciprofloxacin 500 mg Tablet PO ×2 (07:59→18:02)
[2020-02-13] MEDS: levETIRAcetam 500 mg Tablet PO ×2 (08:00→18:03)
[2020-02-13] MEDS: levothyroxine 150 mcg Tablet PO (08:00)
[2020-02-13] MEDS: baclofen 10 mg Tablet 20 MG PO ×2 (08:00→18:02)
[2020-02-13] MEDS: BuSPIRONE 5 mg Tablet PO ×3 (08:00→20:24)
[2020-02-13] MEDS: gabapentin 100 mg Capsule 200 MG PO ×2 (08:00→18:03)
[2020-02-13] MEDS: potassium chloride ER 10 mEq Tablet 40 MEQ PO ×2 (08:05→18:02)
[2020-02-13] MEDS: polyethylene glycol 3350 Pkt 17 gm PO (08:06)
[2020-02-13] MEDS: morphine ER (12 HR) 15 mg Tablet PO ×2 (08:06→18:03)
[2020-02-13] MEDS: sennosides-docusate Tablet 2 TAB PO ×2 (08:06→18:03)
[2020-02-13] MEDS: spironolactone 25 mg Tablet PO (08:06)
[2020-02-13] MEDS: pantoprazole DR 40 mg Tablet PO (08:06)
--- NOTE | 2020-02-13 14:00 | PM.PN ---
Subjective Subjective: Interval history: Patient seen and examined, continues to be quite unmotivated to do anything out of bed, quite insistent on receiving pain medications and requesting IV morphine specifically due to what she reports as pain in her kidneys. Had very good urine output overnight of 3100 mL, leukocytosis resolved, hemoglobin improved from 8.6->9.0 today, noted mild hypokalemia, will replace orally. Discontinue Castillo catheter per discussion with Dr. Randolph. She is POD # 4 s/p emergent cystoscopy and right ureteral stent placement. Medications: Reviewed: Yes Medication Review Details: Active Medications Generic Name Dose Route Start Last Admin Trade Name Freq PRN Reason Stop Dose Admin Acetaminophen 650 mg 02/08/20 22:28 02/13/20 05:47 Tylenol PO 650 mg Q6H PRN Administration Mild/Mod Pain Or Temp >/= 101 Baclofen 20 mg 02/10/20 14:45 02/13/20 08:00 Lioresal PO 20 mg BID TRENT Administration Buspirone HCl 5 mg 02/09/20 21:00 02/13/20 08:00 Buspar PO 5 mg TID TRENT Administration Ciprofloxacin HCl 500 mg 02/12/20 09:00 02/13/20 07:59 Cipro PO 500 mg BID TRENT Administration Protocol Gabapentin 200 mg 02/09/20 21:00 02/13/20 08:00 Neurontin PO 200 mg BID TRENT Administration Hydromorphone HCl 8 mg 02/11/20 18:00 02/13/20 07:59 Dilaudid Tab PO 8 mg BID TRENT Administration Levetiracetam 500 mg 02/11/20 09:00 02/13/20 08:00 Keppra PO 500 mg BID TRENT Administration Levothyroxine Sodi um 150 mcg 02/13/20 09:00 02/13/20 08:00 Synthroid PO 150 mcg DAILY TRENT Administration Morphine Sulfate 15 mg 02/11/20 18:00 02/13/20 08:06 Ms Contin PO 15 mg BID TRENT Administration Naloxone HCl 0.4 mg 02/11/20 09:43 Narcan IVP PRN PRN RESPIRATORY RATE < 8/MIN Ondansetron HCl 4 mg 02/08/20 22:28 02/09/20 20:57 Zofran IVP 4 mg Q6H PRN Administration vomiting, or N/V if npo Pantoprazole Sodiu m 40 mg 02/11/20 09:00 02/13/20 08:06 Protonix PO 40 mg DAILY TRENT Administration Polyethylene Glyco l 17 gm 02/10/20 11:30 02/13/20 08:13 Miralax PO Not Given DAILY TRENT Potassium Chloride 40 meq 02/13/20 18:00 Klor-Con 10 PO BID TRENT Prazosin HCl 2 mg 02/11/20 21:00 02/12/20 21:01 Minipress PO 2 mg BEDTIME TRENT Administration Quetiapine Fumarat e 300 mg 02/09/20 01:05 02/12/20 21:01 Seroquel PO 300 mg BEDTIME TRENT Administration Senna/Docusate Sod ium 2 tab 02/10/20 11:30 02/13/20 08:06 Senna-S PO 2 tab BID TRENT Administration Spironolactone 25 mg 02/13/20 09:00 02/13/20 08:06 Aldactone PO 25 mg DAILY TRENT Administration haloperidol [From Haldol] Allergy (Verified 02/01/20 11:24) Unknown hydroxyzine [From Vistaril] Allergy (Verified 02/01/20 11:24) Unknown meperidine [From Demerol] Allergy (Verified 02/01/20 11:24) Unknown midazolam [From Versed] Allergy (Verified 02/01/20 11:24) Unknown olanzapine [From Zyprexa] Allergy (Verified 02/01/20 11:24) Unknown prochlorperazine [From Compazine] Allergy (Verified 02/01/20 11:24) Unknown promethazine Allergy (Verified 02/01/20 11:24) Unknown anti-nausea meds except zofran Allergy (Uncoded 02/01/20 11:11) Unknown Vitals/I&O/Wt Last Vital Signs Temp 98.3 F 02/13/20 12:30 Pulse 72 02/13/20 12:30 Resp 16 02/13/20 12:30 BP 124/85 02/13/20 12:30 Pulse Ox 96 02/13/20 12:30 02/12/20 02/13/20 02/13/20 22:59 06:59 14:59 Intake Total 800 / 800 1000 / 1800 Output Total 1500 / 3300 3100 / 6400 1300 / 1300 Balance -700 / -2500 -2100 / -4600 -1300 / -1300 Physical Exam Const: COMMON NORMALS: no acute distress, patient oriented x3 and alert GENERAL APPEARANCE: cooperative, comfortable and appears older than stated age NUTRITIONAL APPEARANCE: obese ORIENTATION/CONSCIOUSNESS: Yes awake OTHER: -Minimal motivation for out of bed activity HENMT: COMMON NORMALS: normocephalic, atraumatic, hearing grossly normal bilaterally and moist oral mucous membranes HEAD & SCALP: normocephalic and atraumatic TEETH & GINGIVA: Yes poor dentition Eye: COMMON NORMALS: Equal, round and reactive pupils present, EOMs intact bilaterally and conjunctivae normal CONJUNCTIVA: Yes conjunctivae normal PUPIL: Yes Equal, round and reactive pupils present Neck/C-Spine: COMMON NORMALS: full ROM GENERAL: Yes normal visual inspection and Yes trachea midline Resp: COMMON NORMALS: normal respiratory effort, No retractions, No use of accessory muscles and clear to auscultation bilaterally EFFORT & INSPECTION: Yes able to speak in complete sentences, Yes symmetric chest movement and No tachypneic AUSCULTATION: clear to auscultation bilaterally Cardio: COMMON NORMALS: regular rate, regular rhythm, S1 normal heart sound present, S2 normal heart sound present and No murmurs present (Cardio) RATE: regular rate RHYTHM: regular rhythm HEART SOUNDS: S1 normal heart sound present and S2 normal heart sound present GI: COMMON NORMALS: Normal to inspection, nondistended, normoactive bowel sounds present, Soft to palpation and non-tender PALPATION: Yes Soft to palpation : BLADDER/KIDNEY EXAM: Yes catheter in place Catheter type (Female): urethral and Yes CVA tenderness on the right Back/Pelvis: GENERAL BACK: Yes CVA tenderness Extremity: COMMON NORMALS: normal to inspection, full ROM and no clubbing, cyanosis or edema; negative for no pedal edema Neuro: COMMON NORMALS: patient oriented x3, moves all extremities, no focal motor deficits and no sensory deficits noted SENSORIUM/ORIENTATION: Yes alert Psych: COMMON NORMALS: mental status grossly normal, Normal thought process present, cooperative, normal affect and speech normal SPEECH: Yes normal speech THOUGHT PROCESS: Normal thought process present Skin: COMMON NORMALS: no rashes or lesions noted, no jaundice, no petechiae and no mottling GENERAL SKIN EXAM: no rashes or lesions noted Urinary Catheter Management^: Castillo: Cath Placed During This Visit: yes, but has since been removed by the nurse Urinary Catheter Date of Insertion: 02/09/20 Urinary Catheter Time of Insertion: 05:00 Date Urinary Catheter Removed: 02/09/20 Time Urinary Catheter Discontinued: 06:30 Castillo Latex: Cath Placed During This Visit: yes Reason for Continuing Indwelling Catheter: Other Urinary Catheter Date of Insertion: 02/09/20 Urinary Catheter Time of Insertion: 06:32 Data : 02/13/20 03:54 02/13/20 03:54 A&P Assessment and plan (1) Obstructive pyelonephritis: -Urinalysis strongly indicative of infection -Symptomatic as presented with CVA tenderness, dysuria, nausea/vomiting, malaise -Due to noted deterioration with sepsis, hypotension, fever, and noted oliguria was taken emergently to the OR for cystoscopy and right ureteral stent placement: POD # 4 -Appreciate consultation by Dr. Randolph -Per review of operative note patient had findings consistent with chronic cystitis cystica and had large amount of high pressure purulence drained -Has Castillo catheter in place, has had very good urine output, discontinue Castillo catheter today -Has associated sepsis as evidenced by leukocytosis, tachycardia, hypotension, fever, tachypnea, lactic acidosis. Hemodynamically stable, has been afebrile x 72 hours, resolved leukocytosis, lactic acidosis resolved -Continue to monitor vital signs closely; currently stable -d/c IV abx, continue ciprofloxacin PO per sensitivity profile -blood cx: negative -urine cx: E.coli, sensitivity noted -Imaging reviewed with noted right-sided obstructive uropathy -chest x-ray unremarkable -pain control, antiemetics as needed Status: Acute (2) Sepsis: -As noted above Status: Resolved Qualifiers: Sepsis type: sepsis due to unspecified organism Sepsis acute organ dysfunction status: unspecified Qualified Code(s): A41.9 - Sepsis, unspecified organism (3) Obstructive uropathy: -As noted above -Continued close monitoring of renal function Status: Acute (4) Bilateral renal stones: -Seen on imaging, non-obstructive Status: Acute (5) Anemia: -Has chronic iron deficiency anemia, baseline hemoglobin appears to be around 9 -LMP-01/24 -Continue to monitor H&H closely; transfused 1 unit of PRBCs (02/08), anticipate need for additional blood products Status: Acute Qualifiers: Anemia type: iron deficiency Iron deficiency anemia type: unspecified iron deficiency Qualified Code(s): D50.9 - Iron deficiency anemia, unspecified (6) Hypomagnesemia: -Likely secondary to acute infection, replace as needed Status: Resolved (7) Hypokalemia: -Replacement ongoing, continue to monitor levels Status: Acute Additional A&P Information -Obesity: BMI-32 kg/m2 -Hypothyroidism; on levothyroxine -Seizure disorder hx: on Keppra -Chronic back pain; pain control as needed -Acute thrombocytopenia; likely due to infection, platelet counts normalized; coags wnl -Transaminitis; likely related to infection, LFTs now normalized -Hypocalcemia; corrected Ca-9.6, continue to monitor -regular diet -GI ppx with PPI -DVT ppx with SCDs, no AC due to anemia, thrombocytopenia -Dispo: home -Code status: FULL code -If continued clinical improvement/stability anticipate discharge tomorrow Attestations Medical Necessity Statement*: Patient requires hospitalization for continued treatment of obstructive pyelonephritis, discontinue Castillo catheter today. Time Spent in Patient Care: 16 - 35 minutes (>than 50% of time spent in counselling and/or direct pt care on unit). Coding Level of Care Code Acute Strap [employer] Machine for [facility] Diagnoses Obstructive pyelonephritis N11.1 Sepsis A41.9 Sepsis type: sepsis due to unspecified organism Sepsis acute organ dysfunction status: unspecified Obstructive uropathy N13.9 Bilateral renal stones N20.0 Anemia D50.9 Anemia type: iron deficiency Iron deficiency anemia type: unspecified iron deficiency Hypomagnesemia E83.42 Hypokalemia E87.6
--- NOTE | 2020-02-13 17:25 | PM.PN ---
Subjective Subjective: Interval history: Urology follow-up: Postoperative day #4 status post emergency stent placement for right obstructive pyelonephritis. Slow to recover but doing much better now with normalization of white count, normalization of temperature. She is still feeling quite weak. Complained of some LEFT back pain today. She does have BILATERAL RENAL calculi. We will repeat a KUB in the morning to assess for any possible change in the stone position on the left. Reviewed with her that she still needs treatment of the stone that was causing the obstruction. We could tentatively do that as an outpatient ESWL this Thursday. We will need to make arrangements for Medicaid transport to make that happen though. Vitals/I&O/Wt Last Vital Signs Temp 98.3 F 02/13/20 12:30 Pulse 72 02/13/20 12:30 Resp 16 02/13/20 12:30 BP 124/85 02/13/20 12:30 Pulse Ox 96 02/13/20 12:30 02/13/20 02/13/20 02/13/20 06:59 14:59 22:59 Intake Total 1000 / 1800 300 / 300 Output Total 3100 / 6400 1700 / 1700 1900 / 3600 Balance -2100 / -4600 -1400 / -1400 -1900 / -3300 Physical Exam Const: COMMON NORMALS: no acute distress, alert and well nourished GENERAL APPEARANCE: well kempt and well developed ORIENTATION/CONSCIOUSNESS: not confused HENMT: COMMON NORMALS: normocephalic and atraumatic HEAD & SCALP: normocephalic and atraumatic Neck/C-Spine: COMMON NORMALS: full ROM Resp: COMMON NORMALS: normal respiratory effort EFFORT & INSPECTION: No labored and No Actively coughing Neuro: COMMON NORMALS: no focal motor deficits SENSORIUM/ORIENTATION: Yes alert Psych: COMMON NORMALS: mental status grossly normal APPEARANCE: Yes grossly normal and Yes well kempt ATTITUDE: Yes calm and Yes engaged Skin: COMMON NORMALS: no rashes or lesions noted and no jaundice GENERAL SKIN EXAM: no rashes or lesions noted Urinary Catheter Management^: Castillo: Cath Placed During This Visit: yes, but has since been removed by the nurse Urinary Catheter Date of Insertion: 02/09/20 Urinary Catheter Time of Insertion: 05:00 Date Urinary Catheter Removed: 02/09/20 Time Urinary Catheter Discontinued: 06:30 Castillo Latex: Cath Placed During This Visit: yes Reason for Continuing Indwelling Catheter: Other Urinary Catheter Date of Insertion: 02/09/20 Urinary Catheter Time of Insertion: 06:32 Data : 02/13/20 03:54 02/13/20 03:54 A&P Assessment and plan (1) Obstructive pyelonephritis: Much improved clinically. Status: Acute (2) Right ureteral calculus: Still needs to deal with the stone either endoscopically or with ESWL. Tentative option for treatment on Thursday the . Status: Acute (3) Bilateral renal stones: Status: Acute Attestations Medical Necessity Statement*: See attending Coding Level of Care Code Acute [employer] for [facility] Diagnoses Obstructive pyelonephritis N11.1 Right ureteral calculus N20.1 Bilateral renal stones N20.0
[2020-02-13] MEDS: quetiapine 300 mg Tablet PO (20:24)
[2020-02-13] MEDS: prazosin 1 mg Capsule 2 MG PO (20:24)
[2020-02-14] VITALS: BP 109/75; PULSE 82; RESP 20; TEMP 36.9; O2SAT 95
[2020-02-14 04:00] VITALS: BP 109/71; PULSE 82; RESP 20; TEMP 36.9; O2SAT 95
--- NOTE | 2020-02-14 06:00 | XRR_ITS ---
PROCEDURE INFORMATION: Exam: XR Abdomen, 1 View Exam date and time: 02/14/2020 6:43 AM Age: 45 years old Clinical indication: Abdominal pain; Flank; Left; Prior surgery; Surgery type: Ureterolithiasis; Additional info: Follow-up ureterolithiasis. Complaining of some left sided pain TECHNIQUE: Imaging protocol: XR of the abdomen. Views: Frontal supine view of the abdomen. 1 View. COMPARISON: CT ABDOMEN/PELVIS 02/08/2020 8:31 PM FINDINGS: Gastrointestinal tract: There is a large amount of stool in the colon. No gas-filled distended loops of bowel. Organs: There is bilateral nephrolithiasis. The previously demonstrated proximal right ureteral calculus is not visualized. This may have been removed or pushed back into the right renal collecting system in the interval. No radiopaque left ureteral calculus identified. Interval placement of a right double-J stent with the proximal pigtail in the right renal pelvis and distal pigtail in the urinary bladder. Bones/joints: No acute osseous abnormality. XR/XR KUB [id number] IMPRESSION: 1. Interval placement of a right double-J stent. 2. Bilateral nephrolithiasis.
[2020-02-14 06:37] LABS: Potassium 3.2 mmol/L (3.5-5.1)
[2020-02-14 08:00] VITALS: BP 118/82; PULSE 81; RESP 17; TEMP 37.1; O2SAT 97
[2020-02-14] MEDS: ciprofloxacin 500 mg Tablet PO (08:44)
[2020-02-14] MEDS: gabapentin 100 mg Capsule 200 MG PO (08:44)
[2020-02-14] MEDS: potassium chloride ER 10 mEq Tablet 40 MEQ PO (08:44)
[2020-02-14] MEDS: levothyroxine 150 mcg Tablet PO (08:44)
[2020-02-14] MEDS: levETIRAcetam 500 mg Tablet PO (08:44)
[2020-02-14] MEDS: baclofen 10 mg Tablet 20 MG PO (08:44)
[2020-02-14] MEDS: spironolactone 25 mg Tablet PO (08:44)
[2020-02-14] MEDS: BuSPIRONE 5 mg Tablet PO ×2 (08:45→14:25)
[2020-02-14] MEDS: pantoprazole DR 40 mg Tablet PO (08:45)
[2020-02-14] MEDS: morphine ER (12 HR) 15 mg Tablet PO (08:45)
[2020-02-14 11:14] VITALS: BP 122/82; PULSE 86; RESP 16; TEMP 36.4; O2SAT 95
--- NOTE | 2020-02-14 13:32 | PM.DCS ---
Discharge Providers Date of Admission: 02/08/20 21:49 Date of Discharge: February 14, 2020 Attending Provider at Admission: Jose Ramon Doty MD Attending Provider at Discharge: Maryam Akhtar MD Primary Care Provider: Brie Everett DO Diagnoses at Discharge Discharge Diagnosis (1) Obstructive pyelonephritis: Status: Acute Problem details: -Urinalysis strongly indicative of infection -Symptomatic as presented with CVA tenderness, dysuria, nausea/vomiting, malaise -Due to noted deterioration with sepsis, hypotension, fever, and noted oliguria was taken emergently to the OR for cystoscopy and right ureteral stent placement: POD # 5 -Appreciate consultation by Dr. Randolph -Per review of operative note patient had findings consistent with chronic cystitis cystica and had large amount of high pressure purulence drained -Has Castillo catheter in place, has had very good urine output, discontinue Castillo catheter today -Has associated sepsis as evidenced by leukocytosis, tachycardia, hypotension, fever, tachypnea, lactic acidosis. Hemodynamically stable, has been afebrile x 72 hours, resolved leukocytosis, lactic acidosis resolved -Continue to monitor vital signs closely; currently stable -d/c IV abx, continue ciprofloxacin PO per sensitivity profile -blood cx: negative -urine cx: E.coli, sensitivity noted -Imaging reviewed with noted right-sided obstructive uropathy -chest x-ray unremarkable -pain control, antiemetics as needed (2) Right ureteral calculus: Status: Acute Problem details: -plan for ESWL on Thursday (02/16) per Dr. Randolph (3) Bilateral renal stones: Status: Acute (4) Anemia: Status: Acute Problem details: -Has chronic iron deficiency anemia, baseline hemoglobin appears to be around 9 -LMP-01/24 -Continue to monitor H&H closely; transfused 1 unit of PRBCs (02/08), anticipate need for additional blood products Qualifiers: Anemia type: iron deficiency Iron deficiency anemia type: unspecified iron deficiency Qualified Code(s): D50.9 - Iron deficiency anemia, unspecified (5) Hypokalemia: Status: Acute Problem details: -Replacement ongoing, continue to monitor levels Other Information Additional DC diagnoses/information: -Obesity: BMI-32 kg/m2 -Hypothyroidism; on levothyroxine -Seizure disorder hx: on Keppra -Chronic back pain; pain control as needed -Acute thrombocytopenia; likely due to infection, platelet counts normalized; coags wnl -Transaminitis; likely related to infection, LFTs now normalized -Hypocalcemia: resolved Reason for Visit Reason for Visit: N/V Hospital Course Hospital Course: Patient was initially admitted to ICU following emergent cystoscopy and right ureteral stent placement secondary to noted obstructive pyelonephritis with associated sepsis. She was covered with IV fluid hydration, initially quite aggressively due to hypotension and sepsis in addition to broad-spectrum IV antibiotics. With some time and the aforementioned treatment her clinical status improved particularly from a hemodynamic standpoint. She did not require pressor support though that was ordered if needed. Due to noted acute worsening anemia she required transfusion of 1 unit of PRBCs. Hemoglobin thereafter has been stable and no further blood products have been required. Once hemodynamic status stabilized she was transferred to the floor for continued care. She has consistently been afebrile over 72 hours, leukocytosis has resolved. Oral intake was quite diminished initially but with improved clinical status her appetite has improved as well. Castillo catheter had been placed following procedure and she was initially oliguric but with correction of hypovolemia urine output improved. Castillo catheter has been discontinued and she has been able to void independently without difficulty. She has had some CVA tenderness that has been managed with pain medications as needed. She is POD # 5 following cystoscopy and right ureteral stent placement and is doing well from this perspective per Dr. Randolph. Plan is for ESWL on Thursday. Blood cultures have been negative and urine cultures grew E. coli and based on sensitivity profile she was transitioned from IV antibiotics to oral ciprofloxacin which she will need to continue for several more days to complete her treatment course. Electrolytes were monitored and replaced as needed. Hypocalcemia has corrected, transaminitis has resolved and thrombocytopenia which was initially noted has also resolved with normalization of her platelets. She will need continued follow-up with Dr. Randolph and follow-up with her primary care provider as well. She has been quite unmotivated to do any out of bed activity which appears to be her baseline, as such is overall quite deconditioned. As this presents a fall risk she would benefit from having a shower chair which has been requested. Discharge Summary: -Patient to follow-up with her primary care provider within 1 week -Patient to follow-up with Dr. Randolph as scheduled. Physical Exam Const: COMMON NORMALS: no acute distress, patient oriented x3 and alert GENERAL APPEARANCE: cooperative, comfortable and appears older than stated age NUTRITIONAL APPEARANCE: obese ORIENTATION/CONSCIOUSNESS: Yes awake OTHER: -Minimal motivation for out of bed activity HENMT: COMMON NORMALS: normocephalic, atraumatic, hearing grossly normal bilaterally and moist oral mucous membranes HEAD & SCALP: normocephalic and atraumatic TEETH & GINGIVA: Yes poor dentition Eye: COMMON NORMALS: Equal, round and reactive pupils present, EOMs intact bilaterally and conjunctivae normal CONJUNCTIVA: Yes conjunctivae normal PUPIL: Yes Equal, round and reactive pupils present Neck/C-Spine: COMMON NORMALS: full ROM GENERAL: Yes normal visual inspection and Yes trachea midline Resp: COMMON NORMALS: normal respiratory effort, No retractions, No use of accessory muscles and clear to auscultation bilaterally EFFORT & INSPECTION: Yes able to speak in complete sentences, Yes symmetric chest movement and No tachypneic AUSCULTATION: clear to auscultation bilaterally Cardio: COMMON NORMALS: regular rate, regular rhythm, S1 normal heart sound present, S2 normal heart sound present and No murmurs present (Cardio) RATE: regular rate RHYTHM: regular rhythm HEART SOUNDS: S1 normal heart sound present and S2 normal heart sound present GI: COMMON NORMALS: Normal to inspection, nondistended, normoactive bowel sounds present, Soft to palpation and non-tender PALPATION: Yes Soft to palpation : BLADDER/KIDNEY EXAM: Yes catheter in place Catheter type (Female): urethral and Yes CVA tenderness on the right Back/Pelvis: GENERAL BACK: Yes CVA tenderness Extremity: COMMON NORMALS: normal to inspection, full ROM and no clubbing, cyanosis or edema; negative for no pedal edema Neuro: COMMON NORMALS: patient oriented x3, moves all extremities, no focal motor deficits and no sensory deficits noted SENSORIUM/ORIENTATION: Yes alert Psych: COMMON NORMALS: mental status grossly normal, Normal thought process present, cooperative, normal affect and speech normal SPEECH: Yes normal speech THOUGHT PROCESS: Normal thought process present Skin: COMMON NORMALS: no rashes or lesions noted, no jaundice, no petechiae and no mottling GENERAL SKIN EXAM: no rashes or lesions noted Urinary Catheter Management^: Castillo: Cath Placed During This Visit: yes, but has since been removed by the nurse Urinary Catheter Date of Insertion: 02/09/20 Urinary Catheter Time of Insertion: 05:00 Date Urinary Catheter Removed: 02/09/20 Time Urinary Catheter Discontinued: 06:30 Castillo Latex: Cath Placed During This Visit: yes, but has since been removed by the nurse Reason for Continuing Indwelling Catheter: Decision to DC Catheter Urinary Catheter Date of Insertion: 02/09/20 Urinary Catheter Time of Insertion: 06:32 Date Urinary Catheter Removed: 02/13/20 Time Urinary Catheter Discontinued: 22:32 Discharge Data Data Completed and Pending: Completed Studies During Hospitalization Category Date Time Status CT abdomen pelvis w con* [id number] Urge nt Cat Scan 02/08/20 19:44 Completed XR KUB [id number] Rout ine Exams 02/14/20 06:00 Completed XR chest 1V mila ble [id number] Stat Exams 02/08/20 19:22 Completed Labs from last 24 hours 02/14/20 04:40 Potassium 3.2 L Vitals: Last Vital Signs Temp 97.6 F 02/14/20 11:14 Pulse 86 02/14/20 11:14 Resp 16 02/14/20 11:14 BP 122/82 02/14/20 11:14 Pulse Ox 95 02/14/20 11:14 Discharge Plan Discharge Patient Disposition: Home Condition: Stable Prescriptions: New ciprofloxacin HCl 500 mg Tablet 500 mg PO BID 7 Days Qty: 14 RF: 0 Continued Senna Lax 8.6 mg tablet 17.2 mg PO BEDTIME RF: 0 buspirone 5 mg tablet 5 mg PO TID RF: 0 quetiapine 300 mg tablet 300 mg PO BEDTIME RF: 0 levetiracetam 500 mg tablet 500 mg PO BID RF: 0 ondansetron HCl 8 mg tablet 8 mg PO Q6H PRN (Reason: Nausea) RF: 0 hydromorphone 8 mg tablet 8 mg PO BID RF: 0 rizatriptan [Maxalt] 10 mg Tablet 10 mg PO Q8H PRN (Reason: Headache) RF: 0 hydroxyzine pamoate [Vistaril] 50 mg Capsule 50 mg PO TID PRN (Reason: unknown) RF: 0 famotidine 20 mg tablet 20 mg PO BID RF: 0 meclizine 25 mg tablet 25 - 50 mg PO TID PRN (Reason: Nausea) RF: 0 baclofen 10 mg tablet 20 mg PO BID RF: 0 diphenhydramine HCl [Benadryl] 25 mg Capsule 50 mg PO Q4H PRN (Reason: Allergy Symptoms) RF: 0 levothyroxine 150 mcg tablet 150 mcg PO DAILY RF: 0 morphine 15 mg Tablet Extended Release 15 mg PO Q12H PRN (Reason: Pain) RF: 0 gabapentin 100 mg capsule 200 mg PO BID RF: 0 prazosin 2 mg Capsule 2 mg PO BEDTIME RF: 0 Fetzima 20 mg capsule,extended release 24 hr 20 mg PO DAILY RF: 0 acetaminophen 325 mg Tablet 650 mg PO Q6H PRN (Reason: Mild/Mod Pain Or Temp >/= 101) Qty: 60 RF: 0 spironolactone 25 mg Tablet 25 mg PO DAILY Qty: 60 RF: 0 folic acid 1 mg Tablet 1 mg PO BID Qty: 60 RF: 0 ergocalciferol (vitamin D2) [Vitamin D2] 1,250 mcg (50,000 unit) Capsule 50,000 unit PO Q7D Qty: 4 RF: 0 Protonix [address] for susp in packet 40 mg PO BID Qty: 60 RF: 0 Changed Klor-Con M20 20 mEq tablet,ER particles/crystals 40 meq PO BID Qty: 120 RF: 0 Discharge Orders: Discharge Order (Routine); Ordered 02/14/20 Ordered By: Maryam Akhtar Other Ambulatory Orders: DME: Shower Chair (Order) Location: None Selected Ordered By: Maryam Akhtar Referrals: Brie Everett DO [Primary Care Provider] - 02/20/20 12:00 pm (Post hospital discharge follow up) Discharge Diet: Usual diet Discharge Activity: Increase activity as tolerated and As per PT/OT instructions Patient Instructions: Ciprofloxacin (By mouth), Kidney Stones (DC), Renal Colic (GEN) Activity Restrictions/Additional Instructions: -Please return to the hospital on Thursday for scheduled procedure by Dr. Randolph. -Please seek medical attention immediately if symptoms worsen. Discharge Attestations Time Spent in Discharge Care*: greater than 30 min Specific Discharge Activities: Specific discharge activities: educating patient, discussing with pcp/other providers, discussing with case management specialist/social workers/dc planners, documenting/other paperwork and evaluating patient/reviewing data Status at Discharge: Cognitive status at discharge: cognitively intact, Behavioral status at discharge: cooperative, Overall status at discharge: patient is progressing back to baseline Quality Metrics Clinical Quality Measures During this hospital stay, did patient experience: None Coding Level of Care Code Acute [place] Skinner for Chg Fwd Diagnoses Obstructive pyelonephritis N11.1 Right ureteral calculus N20.1 Bilateral renal stones N20.0 Anemia D50.9 Anemia type: iron deficiency Iron deficiency anemia type: unspecified iron deficiency Hypokalemia E87.6
[2020-02-14] MEDS: potassium chloride premix 40 MEQ/100 ML PREMIX 25 MEQ IV (14:24)
[2020-02-14] MEDS: lidocaine 1% INJ 20 mL 5 ML IV (14:24)
[2020-02-14 16:00] VITALS: BP 127/87; PULSE 78; RESP 12; TEMP 36.5; O2SAT 95
[2020-02-14 17:09] VITALS: BP 127/87; PULSE 78; RESP 12; TEMP 36.5; O2SAT 95
== END 2020-02-14 17:12 | disposition home or self-care (01) | DRG 854 ==
LOC: ER 17:31 → ICU 23:18 → MEDSURG 02-12 18:04
PROVIDERS: Emergency Medicine; Urology; Admitting Provider Internal Medicine; PCP Family Medicine; Visit Provider Family Medicine
PROC: 0TJB8ZZ Inspection of Bladder, Via Natural or Artificial Opening Endoscopic (ICD-10-PCS; CPT 52000; principal; 2020-02-09 05:40)
PROC: 0T768DZ Dilation of Right Ureter with Intraluminal Device, Via Natural or Artificial Opening Endoscopic (ICD-10-PCS; CPT 50605; 2020-02-09 05:40)
DX: A41.9 Sepsis, unspecified organism (principal); N11.1 Chronic obstructive pyelonephritis; N20.2 Calculus of kidney with calculus of ureter; E87.2 Acidosis; F41.9 Anxiety disorder, unspecified; M19.90 Unspecified osteoarthritis, unspecified site; F31.9 Bipolar disorder, unspecified; G89.29 Other chronic pain; M54.9 Dorsalgia, unspecified; R56.9 Unspecified convulsions; E87.6 Hypokalemia; E83.42 Hypomagnesemia; D50.9 Iron deficiency anemia, unspecified; K21.9 Gastro-esophageal reflux disease without esophagitis; N30.20 Other chronic cystitis without hematuria; E66.09 Other obesity due to excess calories; Z68.32 Body mass index [BMI] 32.0-32.9, adult; E03.9 Hypothyroidism, unspecified; D69.6 Thrombocytopenia, unspecified; Z79.891 Long term (current) use of opiate analgesic; A49.8 Other bacterial infections of unspecified site; I95.9 Hypotension, unspecified
CPT/HCPCS: 12345; 36415; 36430; 51702; 71045; 74018; 74177; 76000; 80048; 80053; 80074; 80202; 81001; 82310; 83605; 83735; 83970; 84100; 84132; 84703; 85007; 85014; 85018; 85025; 85610; 86850; 86900; 86920; 87040; 87077; 87086; 87186; 96375; 97116; 97161; 97530; 99283; C2625; C9113; J0696; J0743; J1170; J1953; J2270; J2405; J3370; J3475; J3480; J3490; J7030; J7040; J7050; P9016; Q9967

== ENCOUNTER → 2020-03-06 13:46 | Outpatient (BNVA) | payer MEDICAID, SELFPAY | PROVIDERS: PCP Family Medicine; Referring Provider Urology; Visit Provider Urology | DX: N20.1 Calculus of ureter (principal); Z20.818 Contact with and (suspected) exposure to other bacterial communicable diseases | CPT/HCPCS: 87635 ==

== ENCOUNTER 2020-03-09 10:08 | Day surgery (SDC) | payer MEDICAID, SELFPAY ==
[2020-03-08 09:29] VITALS: BMI 29.0
[2020-03-09] VITALS (12 sets, daily range): BP systolic 121–167; BP diastolic 90–100; PULSE 67–86; RESP 9–20; TEMP 36.1–36.6; O2SAT 96–100
--- NOTE | 2020-03-09 10:15 | XR_ITS ---
WS: [id number] KUB, 03/09/2020 Clinical Data: Preop right ESWL Comparison: KUB, 02/14/2020. Findings: Bilateral renal calcifications are present. There is a ureteral stent extending from the right renal pelvis to the bladder. There is a large amount of fecal material throughout the colon. There are clips in the right upper quadrant from a cholecystectomy. XR/XR KUB [id number] Impression: 1. No change in bilateral renal calcifications. 2. No change in position of right ureteral stent. 3. Large amount of fecal material throughout the colon.
[2020-03-09 10:47] LABS: OR HCG Qualitative Urine Negative (Negative)
[2020-03-09] MEDS: sodium chloride 0.9% 1,000 ML 30 ML IV (11:15)
--- NOTE | 2020-03-09 11:19 | ANES.PREANE2 ---
Pre-Anesthetic Assessment Pre-Anesthetic Assessment: Height/Weight: Height 1.6 m Weight 74.389 kg Temp Pulse Resp BP Pulse Ox 97.7 F 86 15 121/100 98 03/09/20 10:55 03/09/20 10:55 03/09/20 10:55 03/09/20 10:55 03/09/20 10:55 Preop Diagnosis: Obstructive pyelonephritis, right UPJ stone Proposed Procedure: Operation Date: 03/09/20 11:40 Proposed Procedures p ESWL 41947 N20.1 N20.0(Not Applicable) - Simon Randolph MD Familial anesthetic complications: none Was Beta Robert taken within 24 hours: N/A Last intake: Intake Last Liquid Date 03/09/20 Last Liquid Time 07:00 Last Solid Date 03/08/20 Last Solid Time 22:00 Social: Social History: No alcohol and No tobacco Exam: Pre-Anes Outpt Exam: alert, oriented x 3, clear to auscultation bilaterally and regular rate & rhythm Airway: Cervical ROM: WNL MP: 2 Dentition: Other (very poor dentition) Pulmonary: Pulmonary: Asthma GI: GI: GERD Comments: gastritis Metabolic: Metabolic: Thyroid Anesthetic Plan: ASA status: 2 Anesthesia: General Risk of > 500 ml blood loss (7ml/kg in children): No PFSH Anesthesia PFSH: Medical History (Updated 02/15/20 @ 00:00 by ) Anemia -Has chronic iron deficiency anemia, baseline hemoglobin appears to be around 9 -LMP-01/24 -Continue to monitor H&H closely; transfused 1 unit of PRBCs (02/08), anticipate need for additional blood products Anxiety Arthritis Back disorder Bilateral renal stones Bipolar disorder Chronic back pain Depression Hypokalemia -Replacement ongoing, continue to monitor levels Obstructive pyelonephritis -Urinalysis strongly indicative of infection -Symptomatic as presented with CVA tenderness, dysuria, nausea/vomiting, malaise -Due to noted deterioration with sepsis, hypotension, fever, and noted oliguria was taken emergently to the OR for cystoscopy and right ureteral stent placement: POD # 5 -Appreciate consultation by Dr. Randolph -Per review of operative note patient had findings consistent with chronic cystitis cystica and had large amount of high pressure purulence drained -Has Castillo catheter in place, has had very good urine output, discontinue Castillo catheter today -Has associated sepsis as evidenced by leukocytosis, tachycardia, hypotension, fever, tachypnea, lactic acidosis. Hemodynamically stable, has been afebrile x 72 hours, resolved leukocytosis, lactic acidosis resolved -Continue to monitor vital signs closely; currently stable -d/c IV abx, continue ciprofloxacin PO per sensitivity profile -blood cx: negative -urine cx: E.coli, sensitivity noted -Imaging reviewed with noted right-sided obstructive uropathy -chest x-ray unremarkable -pain control, antiemetics as needed Physical deconditioning Right ureteral calculus -plan for ESWL on Thursday (02/16) per Dr. Randolph Seizures Surgical History H/O cervical spine surgery H/O knee surgery H/O shoulder surgery History of thyroid surgery Family History Mother Cancer Breast cancer Father Arthritis Social History Smoking and tobacco status: never smoked Alcohol intake: never Household members: spouse Marital status: Number of children: 1 Female Reproductive History: Date of last menstrual period: 02/15/20 Data Anesthesia Other Labs: Laboratory Results - last 48 hr 03/09/20 10:46 Urine HCG, Qual Negative Cardiac Studies: No Data to Display
[2020-03-09] MEDS: fentaNYL 50 mcg/mL INJ 2mL IVP ×2 (11:25→14:06)
[2020-03-09] MEDS: levofloxacin-dextrose 5 % 500 MG/100 ML PREMIX 100 MG IV (13:01)
--- NOTE | 2020-03-09 13:03 | W.PM.OPSUD ---
Surgery/Procedure H&P Update DATE OF PROCEDURE: March 09, 2020 DATE H&P PERFORMED: 02/09/20 H&P UPDATE INFORMATION: I have reviewed H&P completed within last 30 days, I have examined patient prior to procedure, No changes to prior documentation and H&P is in [facility] EMR on date indicated PREOP DIAGNOSIS: Obstructive pyelonephritis, right UPJ stone PLANNED PROCEDURE: Operation Date: 03/09/20 11:40 Proposed Procedures p ESWL 24087 N20.1 N20.0(Not Applicable) - Simon Randolph MD
--- NOTE | 2020-03-09 13:45 | P.OP_ITS ---
Operative Report Date of procedure: March 09, 2020 Pre-op Diagnosis: Obstructive pyelonephritis, right UPJ stone Post-op diagnosis: same Post-op Diagnosis: Same Procedure Done: Extracorporeal shockwave lithotripsy right renal calculus Pathology: none sent Surgeon: Agustín Voltmeter Operator: Miguel Polo: Lithotripsy biometric fingerprinting technician Anesthesia: General Estimated blood loss: None Urine output: Not measured Complications: None Findings: 2500 shocks administered to the stone with excellent change. Condition: stable Disposition: PACU Brief History: Mrs. Kellogg is a 45-year-old white female who was recently diagnosed with obstructive pyelonephritis and underwent emergency stenting. She was treated aggressively with antibiotic therapy and is recovered from the infectious status. Was scheduled for ESWL to the stone at least twice before today but had trouble arranging transportation thankfully she was able to get in today for treatment. Procedure: After routine preoperative evaluation examination and obtaining of informed consent she was taken to the operating suite on 03/09/2020 where general anesthesia was administered without difficulty after appropriate timeout was performed, SCDs confirmed to be functioning, preoperative antibiotics administered, beta-mary protocol confirmed. Positioned on the Dornier unit such that the stone was located at the focal point with a shock head positioned posteriorly. Stone was easily identified. Shockwave stats: 2500 shocks with real-time fluoroscopy adjustments as needed. Intensity 1-4 Rate 60-90. Excellent change. Appeared to be sand at the completion of the procedure. She tolerated the procedure well without complications. Awakened in the operating room and returned to the recovery in stable condition. PLANS: Follow-up in 2 to 3 weeks with KUB hopefully stent removal at the same time
--- NOTE | 2020-03-09 13:55 | SUR.PHASEI ---
1354 PATIENT TO PACU FROM OR. RR EVEN AND UNLABORED. SPO2 100% ON RA.
--- NOTE | 2020-03-09 14:20 | ANE.PACU2 ---
Inpatient post-anesthesia follow up: Airway intact: Yes Vital signs: Temperature 98 F Pulse Rate 71 Respiratory Rate 16 Blood Pressure 131/90 Pulse Oximetry 96 Oxygen Delivery Me thod Room Air Oxygen Flow Rate Fraction of Inspir ed Oxygen Hydration adequate: Yes Nausea and vomiting: No Pain level: 1 Mental status: Baseline
--- NOTE | 2020-03-09 14:26 | SUR.PHASEI ---
1422 PATIENT TO OPS. RESTING ON GURNEY WITH EYES CLOSED, WHEN PATIENT AROUSED, C/O PAIN 9.5/10. SEE VITALS. PATIENT TOLERATING ICE CHIPS.
== END 2020-03-09 15:30 | disposition home or self-care (01) ==
PROVIDERS: PCP Family Medicine; Visit Provider Urology
PROC: (CPT 50590; principal; 2020-03-09 11:40)
DX: N20.0 Calculus of kidney (principal); N12 Tubulo-interstitial nephritis, not specified as acute or chronic; J45.909 Unspecified asthma, uncomplicated; K29.70 Gastritis, unspecified, without bleeding; F31.9 Bipolar disorder, unspecified
CPT/HCPCS: 50590; 12345; 74018; 81025; 84703; 96374; J1956; J2405; J2704; J3010; J3490; J7030

== ENCOUNTER 2020-06-25 08:00 | Outpatient (CLI) | payer MEDICAID, SELFPAY ==
--- NOTE | 2020-06-25 08:30 | XR_ITS ---
WS: [id number] ABDOMEN: SUPINE FILM HISTORY: URETERAL STONE COMPARISON: 03/09/2020 Prior cholecystectomy. Moderate fecal retention. Right kidney: Double pigtail RIGHT ureteral stent. No residual renal or ureteral calcifications. Left kidney: Lobulated calcification projecting over the mid to lower LEFT kidney extends over a gage th of 1.8 cm. XR/XR KUB [id number] IMPRESSION: 1. Double pigtail RIGHT ureteral stent remains in good position. 2. No residual renal calcifications. 3. Lobulated 1.8 cm calcification LEFT kidney.
== END 2020-06-25 08:01 | disposition home or self-care (01) ==
PROVIDERS: PCP Family Medicine; Visit Provider Nurse Practitioner Family
DX: N20.1 Calculus of ureter (principal); N20.0 Calculus of kidney; Z96.0 Presence of urogenital implants
CPT/HCPCS: 74018; 81003; 87635

== ENCOUNTER → 2020-07-10 10:59 | Outpatient (BNVA) | payer BC, MEDICAID, SELFPAY | PROVIDERS: PCP Family Medicine; Referring Provider Urology; Visit Provider Urology | DX: Z11.59 Encounter for screening for other viral diseases (principal); N20.1 Calculus of ureter | CPT/HCPCS: 87635 ==

== ENCOUNTER 2020-08-13 09:57 | Day surgery (SDC) | payer BC, MEDICAID, SELFPAY ==
[2020-08-10 11:29] VITALS: BMI 29.2
[2020-08-13] VITALS (10 sets, daily range): BP systolic 112–146; BP diastolic 81–99; PULSE 62–83; RESP 7–18; TEMP 36.2–36.3; O2SAT 97–100
--- NOTE | 2020-08-13 09:59 | XRR_ITS ---
PROCEDURE INFORMATION: Exam: XR Abdomen, 1 View Exam date and time: 08/13/2020 10:24 AM Age: 45 years old Clinical indication: Condition or disease; Kidney or ureter condition; Calculus (stone) in ureter; Prior surgery; Surgery type: Gb; Additional info: Left ureteral calculi TECHNIQUE: Imaging protocol: XR of the abdomen. Views: Frontal supine view of the abdomen. 1 View. COMPARISON: NM XR KUB [id number] 06/25/2020 8:35 AM FINDINGS: Gastrointestinal tract: There is a prominent amount of stool in the colon. Is no evidence of bowel obstruction or dilatation. Organs: Multiple stable calcifications project on the lower pole of the left kidney. No calcifications are seen in the projection of the right kidney or in the course of the ureters. Bones/joints: Unremarkable. XR/XR KUB [id number] IMPRESSION: 1. Left nephrolithiasis. 2. Constipation. 3. No acute abnormality.
[2020-08-13] MEDS: sodium chloride 0.9% 1,000 ML 30 ML IV ×2 (10:50→10:53)
[2020-08-13] MEDS: scopolamine 1.5 Patch 1 PATCH TRANSDERMA (10:53)
--- NOTE | 2020-08-13 11:54 | PM.OPSURHP ---
Providers/Chief Complaint Admitting Physician: suad Primary Care Provider: Brie Everett DO Chief Complaint: cystoscopy stent placement eswl History of Present Illness Mishel Kellogg is a 45 year old female first evaluated at [facility] on 02/09/2020 for a 6+ millimeter right proximal ureteral stone with septic features. CT scan also showed bilateral nonobstructing renal calculi. She was hypokalemic, platelets were decreased with concern for DIC and her creatinine was increasing. She was taken to the operating room for an emergent stent placement. She was later discharged on 02/14/2020. She returned back to [facility] on 03/09/2024 ESWL to right renal calculus. Excellent change noted to the stone at completion of procedure. She was scheduled to have the stent removed in 2 to 3 weeks but failed to keep multiple scheduled appointments. Ultimately though and late June she did return to the clinic and thankfully the stent was removed without difficulty. Did not require treatment to the stent to remove it. She is also known to have to moderate size stones in the left kidney and is back now for ESWL to the stones. It is planned for stent placement based on the volume. I reviewed again with her the importance of making sure that she is compliant with follow-up so that we can get the stent out on a timely basis and also if required schedule an appropriate retreatment if necessary. Review of Systems Const: Denies: fever(s) or chills Card: Denies: chest pain or palpitations Resp: Denies: dyspnea or wheezing GI: Reports: abdominal pain; Denies: nausea or vomiting Psych: Denies: anxiety or depression Lalo/Lymph: Denies: easy bruising or easy bleeding Medications/Allergies Home Medications Medication Instructions Recorded Confirmed Last Taken Type Fetzima 20 mg PO DAILY 02/01/20 08/13/20 08/13/20 History baclofen 20 mg PO BID 02/01/20 08/13/20 08/13/20 History buspirone 5 mg PO TID 02/01/20 08/13/20 08/13/20 History diphenhydramine HCl [Benadryl] 50 mg PO Q4H PRN 02/01/20 08/10/20 03/09/20 07:00 History gabapentin 200 mg PO BID 02/01/20 08/13/20 08/13/20 History hydroxyzine pamoate [Vistaril] 50 mg PO BEDTIME PRN 02/01/20 08/10/20 03/08/20 History levetiracetam [Keppra] 500 mg PO BID 02/01/20 08/13/20 08/13/20 History levothyroxine 150 mcg PO DAILY 02/01/20 08/13/20 08/13/20 History ondansetron HCl 8 mg PO Q6H PRN 02/01/20 08/13/20 08/13/20 History prazosin 2 mg PO BEDTIME 02/01/20 08/10/20 03/08/20 History quetiapine [Seroquel] 300 mg PO BEDTIME 02/01/20 08/10/20 03/08/20 History rizatriptan [Maxalt] 10 mg PO Q8H PRN 02/01/20 08/10/20 02/24/20 History nitrofurantoin 100 mg PO BID 06/25/20 08/10/20 Unknown History monohydrate/macrocrystals 100 mg capsule docusate sodium [Colace] 100 mg PO BID 06/28/20 08/10/20 Unknown History lactulose 15 ml PO DAILY 06/28/20 08/10/20 Unknown History levothyroxine 75 mcg PO DAILY 06/28/20 08/13/20 08/13/20 History morphine 30 mg PO BID 06/28/20 08/10/20 Unknown History oxycodone 15 mg PO BID PRN 06/28/20 08/13/20 08/13/20 History pantoprazole [Protonix] 40 mg PO DAILY 06/28/20 08/10/20 Unknown History potassium chloride [Klor-Con M20] 40 meq PO DAILY 06/28/20 08/10/20 Unknown History 21-iron fu-folic acid 1 tab PO DAILY 06/28/20 08/10/20 Unknown History [ Complete] Allergies Allergy/AdvReac Type Severity Reaction Status Date / Time haloperidol [From Haldol] Allergy Severe ALGY-Hives Verified 03/09/20 10:35 promethazine Allergy Severe ALGY-Hives Verified 03/09/20 10:35 meperidine [From Demerol] Allergy ALGY-Hives Verified 03/09/20 10:35 olanzapine [From Zyprexa] Allergy ALGY-Hives Verified 03/09/20 10:35 prochlorperazine Allergy ALGY-Hives Verified 03/09/20 10:35 [From Compazine] PFSH PFSH: Medical History Anemia -Has chronic iron deficiency anemia, baseline hemoglobin appears to be around 9 -LMP-01/24 -Continue to monitor H&H closely; transfused 1 unit of PRBCs (02/08), anticipate need for additional blood products Anxiety Arthritis Back disorder Bilateral renal stones Bipolar disorder Chronic back pain Depression Hypokalemia -Replacement ongoing, continue to monitor levels Obstructive pyelonephritis -Urinalysis strongly indicative of infection -Symptomatic as presented with CVA tenderness, dysuria, nausea/vomiting, malaise -Due to noted deterioration with sepsis, hypotension, fever, and noted oliguria was taken emergently to the OR for cystoscopy and right ureteral stent placement: POD # 5 -Appreciate consultation by Dr. Randolph -Per review of operative note patient had findings consistent with chronic cystitis cystica and had large amount of high pressure purulence drained -Has Castillo catheter in place, has had very good urine output, discontinue Castillo catheter today -Has associated sepsis as evidenced by leukocytosis, tachycardia, hypotension, fever, tachypnea, lactic acidosis. Hemodynamically stable, has been afebrile x 72 hours, resolved leukocytosis, lactic acidosis resolved -Continue to monitor vital signs closely; currently stable -d/c IV abx, continue ciprofloxacin PO per sensitivity profile -blood cx: negative -urine cx: E.coli, sensitivity noted -Imaging reviewed with noted right-sided obstructive uropathy -chest x-ray unremarkable -pain control, antiemetics as needed Physical deconditioning Right ureteral calculus -plan for ESWL on Thursday (02/16) per Dr. Randolph Seizures UTI (urinary tract infection) Surgical History H/O cervical spine surgery H/O knee surgery H/O shoulder surgery History of thyroid surgery Family History Mother Cancer Breast cancer Father Arthritis Social History Smoking and tobacco status: never smoked Alcohol intake: never Household members: spouse Marital status: Number of children: 1 Female Reproductive History: Date of last menstrual period: 06/06/20 Vital Signs Vitals Signs: Last Vital Signs Temp 97.2 F L 08/13/20 10:52 Pulse 63 08/13/20 10:52 Resp 18 08/13/20 10:52 BP 114/92 08/13/20 10:52 Pulse Ox 97 08/13/20 10:52 Physical Exam Const: COMMON NORMALS: no acute distress and alert GENERAL APPEARANCE: well kempt and well developed ORIENTATION/CONSCIOUSNESS: not confused HENMT: HEAD & SCALP: normocephalic and atraumatic Eye: COMMON NORMALS: no scleral icterus Neck/C-Spine: COMMON NORMALS: full ROM GENERAL: Yes normal visual inspection Resp: COMMON NORMALS: normal respiratory effort EFFORT & INSPECTION: No labored and No Actively coughing : COMMON NORMALS: Yes normal appearance of the vagina BLADDER/KIDNEY EXAM: Yes bladder normal to palpation BIMANUAL EXAM - VAGINA & UTERUS: Yes bladder normal to palpation Neuro: COMMON NORMALS: no focal motor deficits SENSORIUM/ORIENTATION: Yes alert Psych: COMMON NORMALS: mental status grossly normal, Normal thought process present and cooperative APPEARANCE: Yes grossly normal and Yes well kempt ATTITUDE: Yes calm and Yes engaged THOUGHT PROCESS: Normal thought process present Skin: COMMON NORMALS: no rashes or lesions noted and no jaundice A&P Assessment and plan (1) Bilateral renal stones: ESWL today to the 2 st in her left kidney preceded by stent placement. Importance of compliance emphasized again. Status: Acute (2) History of noncompliance with medical treatment: Status: Acute Coding Level of Care Code Acute Call Center Support Representative for [facility] Fwd Diagnoses Bilateral renal stones N20.0 History of noncompliance with medical treatment Z91.19
--- NOTE | 2020-08-13 13:20 | P.OP_ITS ---
Operative Report Date of procedure: August 13, 2020 Pre-op Diagnosis: Left renal calculi Post-op diagnosis: same Procedure Done: 1. Cystoscopy with left ureteral stent placement 2. Extracorporeal shockwave lithotripsy left renal calculi x2 Pathology: none sent Surgeon: Agustín Retail Pharmacy Manager: Sabi: Rosina Anesthesia: General Estimated blood loss: None Urine output: Not measured Complications: None Findings: Both stones easily localized with biplanar fluoroscopy. A total of 2500 shocks administered with excellent change to both stones. 6 Beninese by 24 cm double-pigtail stent left indwelling at the completion of the procedure. Condition: stable Disposition: PACU Brief History: Mrs. Kellogg is a 45-year-old white female originally evaluated for obstructive pyelonephritis on RIGHT and was treated with emergency stenting and then later ESWL with complete resolution. She was also known to have 2 stones in the left kidney and ultimately elected to try to become stone free. She is admitted today for ESWL and stent placement. Procedure: After routine preoperative evaluation examination and obtaining of informed consent she was taken to the operating suite on 08/13/2020 where general anesthesia was administered without difficulty after appropriate timeout was performed, SCDs confirmed to be functioning, preoperative antibiotics administered, beta-mary protocol confirmed. Prepped and draped in the usual sterile fashion in dorsolithotomy position paying careful attention to avoiding pressure points. 21 Beninese cystoscope with 30 degree lens was introduced into the urethral meatus and advanced into the bladder to videoscopy. Bladder was systematically examined and showed no gross pathology. Flexible tip guidewire was then advanced up the left ureter and curled in the area of the upper pole calyx. A 6 Beninese by 24 cm double-pigtail stent was advanced over the guidewire through the cystoscope into appropriate position as confirmed via both fluoroscopy and cystoscopy. The bladder was drained. She was then repositioned in supine position on the Dornier unit such that the stone was located at the focal point utilizing biplanar fluoroscopy. Shockwave was initiated on the more superior of the 2 stones in about 800 shocks were administered before change was noted. It was then directed to the lower pole stone and actually included both stones in the shock focal point. At about 1800 shocks there was dramatic change. The rate was increased from starting point of 70 -90. Initial shockwave intensity was 1 with advancement to 4. There was a 3-minute pause after approximately 300 shocks. Reevaluation showed excellent change in both stones at the completion of the procedure. She tolerated the procedure well without complications and was awakened in the operating room and returned to the recovery room in stable condition. PLANS: 1. Anticipate discharge from outpatient surgery 2. Follow-up in 2 weeks for KUB. Hopefully remove the stent at that time or schedule retreatment.
--- NOTE | 2020-08-13 13:34 | SUR.PHASEI ---
PT CONTINUES TO SLEEP QUIETLY WITH ORAL AIRWAY IN PLACE, VSS IV PATENT NO DISTRESS NOTED GOOD RESP EFFORT WITH STRONG DEEP BREATHS NOTED.
--- NOTE | 2020-08-13 13:44 | SUR.PHASEI ---
1340 PT OPENS EYES AND COUGHS, ORAL AIRWAY OUT PT DOES NOT FOCUS ON SPEAKER OR RESPOND, VSS GOOD RESP EFFORT NOTED SATS 100% ON 8L MASK.
[2020-08-13 14:23] LABS: OR HCG Qualitative Urine Negative (Negative)
--- NOTE | 2020-08-13 14:42 | ANES.PREANE2 ---
Pre-Anesthetic Assessment Pre-Anesthetic Assessment: Height/Weight: Height 1.63 m Weight 77.111 kg Temp Pulse Resp BP Pulse Ox 97.3 F L 81 18 117/97 99 08/13/20 13:55 08/13/20 13:55 08/13/20 13:55 08/13/20 13:55 08/13/20 13:55 Preop Diagnosis: Left renal calculi Proposed Procedure: Operation Date: 08/13/20 12:00 Proposed Procedures p Cystoscopy [id number] n20.1(Not Applicable) - Simon Randolph MD s Ureteral Stent Placement(Left) - Simon Randolph MD s ESWL(Not Applicable) - Simon Randolph MD Was Beta Robert taken within 24 hours: N/A Last intake: Intake Last Liquid Date 08/13/20 Last Liquid Time 07:30 Last Solid Date 08/12/20 Last Solid Time 21:00 Social: Social History: No alcohol and No tobacco Exam: Pre-Anes Outpt Exam: alert and regular rate & rhythm Airway: Submandibular: WNL Cervical ROM: WNL MP: 2 Additional comments: poor : Comments: chronic renal stones GI: GI: GERD Metabolic: Metabolic: Thyroid Neuropsych: Neuropsych: Dementia Anesthetic Plan: ASA status: 3 Anesthesia: General Risk of > 500 ml blood loss (7ml/kg in children): No Meds/Allergies Current Medications: Current Medications Generic Name Dose Route Start Last Admin Trade Name Freq PRN Reason Stop Dose Admin Sodium Chloride 1,000 mls @ 30 ml s/hr 08/13/20 10:30 08/13/20 10:53 Sodium Chloride 0.9% IV 08/14/20 10:29 30 mls/hr .Q24H TRENT Administration PFSH Anesthesia PFSH: Medical History Anemia -Has chronic iron deficiency anemia, baseline hemoglobin appears to be around 9 -LMP-01/24 -Continue to monitor H&H closely; transfused 1 unit of PRBCs (02/08), anticipate need for additional blood products Anxiety Arthritis Back disorder Bilateral renal stones Bipolar disorder Chronic back pain Depression Hypokalemia -Replacement ongoing, continue to monitor levels Obstructive pyelonephritis -Urinalysis strongly indicative of infection -Symptomatic as presented with CVA tenderness, dysuria, nausea/vomiting, malaise -Due to noted deterioration with sepsis, hypotension, fever, and noted oliguria was taken emergently to the OR for cystoscopy and right ureteral stent placement: POD # 5 -Appreciate consultation by Dr. Randolph -Per review of operative note patient had findings consistent with chronic cystitis cystica and had large amount of high pressure purulence drained -Has Castillo catheter in place, has had very good urine output, discontinue Castillo catheter today -Has associated sepsis as evidenced by leukocytosis, tachycardia, hypotension, fever, tachypnea, lactic acidosis. Hemodynamically stable, has been afebrile x 72 hours, resolved leukocytosis, lactic acidosis resolved -Continue to monitor vital signs closely; currently stable -d/c IV abx, continue ciprofloxacin PO per sensitivity profile -blood cx: negative -urine cx: E.coli, sensitivity noted -Imaging reviewed with noted right-sided obstructive uropathy -chest x-ray unremarkable -pain control, antiemetics as needed Physical deconditioning Right ureteral calculus -plan for ESWL on Thursday (02/16) per Dr. Randolph Seizures UTI (urinary tract infection) Surgical History H/O cervical spine surgery H/O knee surgery H/O shoulder surgery History of thyroid surgery Family History Mother Cancer Breast cancer Father Arthritis Social History Smoking and tobacco status: never smoked Alcohol intake: never Household members: spouse Marital status: Number of children: 1 Female Reproductive History: Date of last menstrual period: 06/06/20 Data Anesthesia Other Labs: Laboratory Results - last 48 hr 08/13/20 10:32 Urine HCG, Qual Negative Cardiac Studies: No Data to Display
--- NOTE | 2020-08-13 14:44 | ANE.PACU2 ---
Inpatient post-anesthesia follow up: Airway intact: Yes Vital signs: Temperature 97.3 F Pulse Rate 81 Respiratory Rate 18 Blood Pressure 117/97 Pulse Oximetry 99 Oxygen Delivery Me thod Room Air Oxygen Flow Rate 8 Fraction of Inspir ed Oxygen Hydration adequate: Yes Nausea and vomiting: No Pain level: 1 Mental status: Baseline
== END 2020-08-13 15:35 | disposition home or self-care (01) ==
PROVIDERS: Anesthesiology; PCP Family Medicine; Visit Provider Urology
PROC: 0TJB8ZZ Inspection of Bladder, Via Natural or Artificial Opening Endoscopic (ICD-10-PCS; CPT 52000; principal; 2020-08-13 12:00)
PROC: (CPT 50605; 2020-08-13 12:00)
PROC: (CPT 50590; 2020-08-13 12:00)
DX: N20.0 Calculus of kidney (principal); Z91.19 Patient's noncompliance with other medical treatment and regimen; K21.9 Gastro-esophageal reflux disease without esophagitis; F03.90 Unspecified dementia, unspecified severity, without behavioral disturbance, psychotic disturbance, mood disturbance, and anxiety; F41.9 Anxiety disorder, unspecified; M19.90 Unspecified osteoarthritis, unspecified site; F32.9 Major depressive disorder, single episode, unspecified
CPT/HCPCS: 50590; 52332; 12345; 74018; 81025; 84703; C2625; J0690; J2704; J2710; J3010; J3490; J7030

== ENCOUNTER 2020-08-29 05:32 | Observation (INO) | payer BC, MEDICAID, SELFPAY ==
[2020-08-29] VITALS (17 sets, daily range): BP systolic 108–142; BP diastolic 72–93; PULSE 83–111; RESP 12–18; TEMP 36.7–36.9; O2SAT 95–100; BMI 30.9
[2020-08-29 05:46] LABS: Glucose Point of Care 160 mg/dL (70-110)
--- NOTE | 2020-08-29 05:57 | W.ED.FEMALGU ---
HPI - Female Genitourinary General: Chief complaint: Urogenital-Female Stated complaint: Burning urination, decreased intake Time Seen by Provider: 08/29/20 05:44 History of Present Illness: HPI Narrative: 45-year-old female presents to the ER decreased intake for the last 7 days. She was placed on some oral antibiotics but that does not seem to help. She has a history of nephrolithiasis and is a left ureteral stent and previous urology notes reviewed. Patient is complaining of left flank pain. She is drowsy and lethargic admitted taking 8 mg of Dilaudid last night she has multiple different narcotics on her medication list. She denies any fever. She has had hematuria. MD elicited complaint: dysuria and UTI Pertinent past history: recurrent UTIs Onset (ago): day(s) (7) Severity: severe Female Urogenital Radiation: L Flank Quality of pain: cramping Consistency: constant Vaginal discharge: none Vaginal bleeding: none Urinary symptoms: Dysuria and Flank Pain Exacerbating factors: none Associated symptoms: Reports nausea and weakness; Deny abdominal pain, short of breath, fevers/chills, headache(s), rash, seizures, syncope or vaginal discharge Treatment prior to arrival: other (Oral antibiotics) Date of Last Menstrual Period: 06/06/20 Review of Systems Const: Denies: fever(s), chills, body aches, change in appetite, fatigue or malaise ENMT: Denies: throat pain, ear or mastoid pain, nasal discharge or nasal congestion Card: Denies: syncope Resp: Denies: dyspnea, productive cough or non-productive cough GI: Reports: nausea; Denies: abdominal pain : Denies: vaginal discharge Skin/Breast: Denies: rash or pruritus Neuro: Denies: headache(s) PFS ED PFSH: Medical History Anemia -Has chronic iron deficiency anemia, baseline hemoglobin appears to be around 9 -LMP-01/24 -Continue to monitor H&H closely; transfused 1 unit of PRBCs (02/08), anticipate need for additional blood products Anxiety Arthritis Back disorder Bilateral renal stones Bipolar disorder Chronic back pain Depression Hypokalemia -Replacement ongoing, continue to monitor levels Obstructive pyelonephritis -Urinalysis strongly indicative of infection -Symptomatic as presented with CVA tenderness, dysuria, nausea/vomiting, malaise -Due to noted deterioration with sepsis, hypotension, fever, and noted oliguria was taken emergently to the OR for cystoscopy and right ureteral stent placement: POD # 5 -Appreciate consultation by Dr. Randolph -Per review of operative note patient had findings consistent with chronic cystitis cystica and had large amount of high pressure purulence drained -Has Castillo catheter in place, has had very good urine output, discontinue Castillo catheter today -Has associated sepsis as evidenced by leukocytosis, tachycardia, hypotension, fever, tachypnea, lactic acidosis. Hemodynamically stable, has been afebrile x 72 hours, resolved leukocytosis, lactic acidosis resolved -Continue to monitor vital signs closely; currently stable -d/c IV abx, continue ciprofloxacin PO per sensitivity profile -blood cx: negative -urine cx: E.coli, sensitivity noted -Imaging reviewed with noted right-sided obstructive uropathy -chest x-ray unremarkable -pain control, antiemetics as needed Physical deconditioning Right ureteral calculus -plan for ESWL on Thursday (02/16) per Dr. Randolph Seizures UTI (urinary tract infection) Surgical History H/O cervical spine surgery H/O knee surgery H/O shoulder surgery History of thyroid surgery Family History Mother Cancer Breast cancer Father Arthritis Social History Smoking and tobacco status: never smoked Alcohol intake: never Household members: spouse Marital status: Number of children: 1 Female Reproductive History: Date of last menstrual period: 06/06/20 Physical Exam Const: COMMON NORMALS: no acute distress GENERAL APPEARANCE: cooperative and comfortable HENMT: COMMON NORMALS: normocephalic, atraumatic and hearing grossly normal bilaterally HEAD & SCALP: normocephalic and atraumatic Neck/C-Spine: COMMON NORMALS: no JVD Resp: COMMON NORMALS: normal respiratory effort, No retractions, No use of accessory muscles and clear to auscultation bilaterally AUSCULTATION: clear to auscultation bilaterally Cardio: COMMON NORMALS: no JVD, regular rate, regular rhythm and No murmurs present (Cardio) RATE: regular rate RHYTHM: regular rhythm GI: COMMON NORMALS: Soft to palpation and No hepatosplenomegaly present AUSCULTATION: Yes normoactive bowel sounds PALPATION: Yes Soft to palpation, No Tenderness to palpation present (GI), No Guarding due to palpation present (GI) and Yes No hepatosplenomegaly present : BLADDER/KIDNEY EXAM: Yes CVA tenderness Back/Pelvis: GENERAL BACK: Yes CVA tenderness CVA tenderness: left Extremity: COMMON NORMALS: normal to inspection, capillary refill normal, no clubbing, cyanosis or edema, no calf tenderness and no pedal edema Skin: COMMON NORMALS: no rashes or lesions noted GENERAL SKIN EXAM: no rashes or lesions noted Course Vital Signs: Vital signs: Vital Signs Temperature 98.0 F 08/29/20 05:34 Pulse Rate 99 08/29/20 08:00 Respiratory Rate 18 08/29/20 08:00 Blood Pressure 129/90 08/29/20 08:00 Pulse Oximetry 95 08/29/20 08:00 MDM - Female MDM Narrative: Medical decision making narrative: Discussed Dr. Randolph. Will cover with IV ceftriaxone. Also start supplemental potassium fluids pain and nausea medications Dr. Randolph will see is concerned the stent may be occluded or partially occluded. Patient placed on observation. Lab Data: Labs: Lab Results 08/29/20 08/29/20 08/29/20 Range/Units 05:42 06:00 06:11 WBC 10.4 H (4.0-10.0) 10^3/ uL RBC 4.24 (4.1-5.3) 10^6/u L Hgb 13.0 (11.5-15.3) g/dL Hct 38.1 (37.0-47.0) % MCV 89.9 (81-99) fL MCH 30.7 (28.0-34.0) pg MCHC 34.1 (30.0-36.0) g/dL RDW 14.6 (12.1-15.1) % Plt Count 323 (130-400) 10^3/c mm MPV 9.2 (7.4-10.4) fL Neut % (Auto) 78.3 % Lymph % (Auto) 13.4 % [place] % (Auto) 6.2 % Eos % (Auto) 1.2 % Baso % (Auto) 0.5 % Neut # (Auto) 8.16 H (1.8-7.7) 10^3/u L Lymph # (Auto) 1.4 (0.8-4.8) 10^3/u L [place] # (Auto) 0.7 (0.2-0.9) 10^3/u L Eos # (Auto) 0.1 (0.0-0.8) 10^3/u L Baso # (Auto) 0.1 (0.0-0.1) 10^3/u L Nucleated RBC % (a uto) 0 % Nucleated RBCs # 0.0 /100WBC Sodium (136-145) mmol/L Potassium (3.5-5.1) mmol/L Chloride (98-107) mmol/L Carbon Dioxide (22-29) mmol/L Anion Gap (5-19) BUN (6-20) mg/dL Creatinine (0.5-0.9) mg/dL GFR Calculation (90-130) mL/min Glucose (65-115) mg/dL POC Glucose 160 H (70-110) mg/dL Calculated Osmolal ity (285-295) mOsm/k g Lactic Acid (0.5-2.2) mmol/L Calcium (8.5-10.5) mg/dL Total Bilirubin (0.15-1.2) mg/dL AST (0-32) U/L ALT (0-33) U/L Alkaline Phosphata se (35-105) IU/L Creatine Kinase (26-192) U/L Total Protein (6.6-8.7) g/dL Albumin (3.5-5.2) g/dL Globulin (1.3-4.6) g/dL Lipase (13-60) U/L Urine Color Brown (Yellow) Urine Appearance Cloudy (CLEAR) Urine pH 6 (5-7) Ur Specific Gravit y 1.020 (1.005-1.030) Urine Protein 3+ H (Negative) Urine Glucose (UA) Norm (Normal) Urine Ketones 1+ H (Negative) Urine Blood 3+ H (Negative) Urine Nitrate Negative (Negative) Urine Bilirubin Neg (Negative) Urine Urobilinogen Norm (Negative) mg/dL Ur Leukocyte Sandy ase 2+ H (Negative) Urine RBC Too numerous to c nt H (0-2) /hpf Urine WBC 25-40 H (0-5) /hpf Ur Squamous Epith Cells 0-4 H (0-5) /hpf Amorphous Sediment Not Reportable Urine Bacteria 1+ H (NONE) /hpf 08/29/20 08/29/20 Range/Units 06:11 06:11 WBC (4.0-10.0) 10^3/ uL RBC (4.1-5.3) 10^6/u L Hgb (11.5-15.3) g/dL Hct (37.0-47.0) % MCV (81-99) fL MCH (28.0-34.0) pg MCHC (30.0-36.0) g/dL RDW (12.1-15.1) % Plt Count (130-400) 10^3/c mm MPV (7.4-10.4) fL Neut % (Auto) % Lymph % (Auto) % [place] % (Auto) % Eos % (Auto) % Baso % (Auto) % Neut # (Auto) (1.8-7.7) 10^3/u L Lymph # (Auto) (0.8-4.8) 10^3/u L [place] # (Auto) (0.2-0.9) 10^3/u L Eos # (Auto) (0.0-0.8) 10^3/u L Baso # (Auto) (0.0-0.1) 10^3/u L Nucleated RBC % (a uto) % Nucleated RBCs # /100WBC Sodium 138 (136-145) mmol/L Potassium 2.7 L* (3.5-5.1) mmol/L Chloride 110 H (98-107) mmol/L Carbon Dioxide 15 L (22-29) mmol/L Anion Gap 15.7 (5-19) BUN 19 (6-20) mg/dL Creatinine 1.1 H (0.5-0.9) mg/dL GFR Calculation 54.2 L (90-130) mL/min Glucose 167 H (65-115) mg/dL POC Glucose (70-110) mg/dL Calculated Osmolal ity 292 (285-295) mOsm/k g Lactic Acid 1.4 (0.5-2.2) mmol/L Calcium 9.0 (8.5-10.5) mg/dL Total Bilirubin 0.2 (0.15-1.2) mg/dL AST 13 (0-32) U/L ALT 9 (0-33) U/L Alkaline Phosphata se 82 (35-105) IU/L Creatine Kinase 122 (26-192) U/L Total Protein 7.0 (6.6-8.7) g/dL Albumin 3.9 (3.5-5.2) g/dL Globulin 3.1 (1.3-4.6) g/dL Lipase 14 (13-60) U/L Urine Color (Yellow) Urine Appearance (CLEAR) Urine pH (5-7) Ur Specific Gravit y (1.005-1.030) Urine Protein (Negative) Urine Glucose (UA) (Normal) Urine Ketones (Negative) Urine Blood (Negative) Urine Nitrate (Negative) Urine Bilirubin (Negative) Urine Urobilinogen (Negative) mg/dL Ur Leukocyte Sandy ase (Negative) Urine RBC (0-2) /hpf Urine WBC (0-5) /hpf Ur Squamous Epith Cells (0-5) /hpf Amorphous Sediment Urine Bacteria (NONE) /hpf Discharge Plan Discharge Patient Disposition: Placed in Observation Clinical Impression: Dehydration, History of noncompliance with medical treatment, Cystitis, History of nephrolithiasis, Hypokalemia Condition: Stable Prescriptions: No Action nitrofurantoin monohyd/m-cryst [Macrobid] 100 mg capsule 100 mg PO BID RF: 0 ondansetron HCl 8 mg tablet 8 mg PO Q8H PRN (Reason: Nausea) Qty: 6 RF: 0 oxycodone 15 mg Tablet 15 mg PO BID PRN (Reason: Pain) RF: 0 levothyroxine 75 mcg tablet 75 mcg PO DAILY RF: 0 pantoprazole [Protonix] 40 mg Tablet,Delayed Release (Dr/Ec) 40 mg PO DAILY RF: 0 docusate sodium [Colace] 100 mg Capsule 100 mg PO BID RF: 0 morphine 30 mg Capsule, Er Multiphase 24 Hr 30 mg PO BID RF: 0 lactulose 10 gram/15 mL solution 15 ml PO DAILY RF: 0 potassium chloride [Klor-Con M20] 20 mEq tablet,ER particles/crystals 40 meq PO DAILY RF: 0 Complete 14 mg iron- 400 mcg Tablet 1 tab PO DAILY RF: 0 buspirone 5 mg tablet 5 mg PO TID RF: 0 quetiapine [Seroquel] 300 mg tablet 300 mg PO BEDTIME RF: 0 levetiracetam [Keppra] 500 mg tablet 500 mg PO BID RF: 0 rizatriptan [Maxalt] 10 mg Tablet 10 mg PO Q8H PRN (Reason: Headache) RF: 0 hydroxyzine pamoate [Vistaril] 50 mg Capsule 50 mg PO BEDTIME PRN (Reason: unknown) RF: 0 baclofen 10 mg tablet 20 mg PO BID RF: 0 diphenhydramine HCl [Benadryl] 25 mg Capsule 50 mg PO Q4H PRN (Reason: Allergy Symptoms) RF: 0 levothyroxine 150 mcg tablet 150 mcg PO DAILY RF: 0 gabapentin 100 mg capsule 200 mg PO BID RF: 0 prazosin 2 mg Capsule 2 mg PO BEDTIME RF: 0 Fetzima 20 mg capsule,extended release 24 hr 20 mg PO DAILY RF: 0 [place] 5-325 mg tablet 1 tab PO Q8H PRN (Reason: pain) Qty: 12 RF: 0 Referrals: Brie Everett DO [Primary Care Provider] - Coding Level of Care Code ED Development Technical Lead for [facility]
--- NOTE | 2020-08-29 06:08 | CTR_ITS ---
PROCEDURE INFORMATION: Exam: CT Abdomen And Pelvis Without Contrast Exam date and time: 08/29/2020 6:09 AM Age: 45 years old Clinical indication: Other: Bi-lat flank pain; Prior surgery; Surgery date: 6+ months; Surgery type: Gb/tubal/ureteal stent TECHNIQUE: Imaging protocol: Computed tomography of the abdomen and pelvis without contrast. Radiation optimization: All CT scans at this facility use at least one of these dose optimization techniques: automated exposure control; mA and/or kV adjustment per patient size (includes targeted exams where dose is matched to clinical indication); or iterative reconstruction. COMPARISON: CT abdomen pelvis w con* [id number] 02/08/2020 8:31 PM RADIATION DOSE METRICS: Total DLP (mGy-cm): 1323.58 FINDINGS: Liver: Normal. No mass. Gallbladder and bile ducts: The gallbladder has been surgically removed. There is unchanged mild extrahepatic biliary ductal dilatation, likely secondary to post cholecystectomy status. Pancreas: Normal. No ductal dilation. Spleen: Normal. No splenomegaly. Adrenal glands: Normal. No mass. Kidneys and ureters: There is mild left-sided hydronephrosis, in the setting of double-J stent. The catheter appears to be in satisfactory position, with proximal loop within the renal pelvis and distal loop in the urinary bladder. There is mild haziness of the fat surrounding the left renal pelvis and ureter. There is bilateral nonobstructing renal stones, the largest measuring 0.9 cm in the left lower kidney and 0.4 cm in the right lower kidney. Stomach and bowel: Unremarkable. No obstruction. No mucosal thickening. Appendix: No evidence of appendicitis. Intraperitoneal space: Unremarkable. No free air. No significant fluid collection. Vasculature: Unremarkable. No abdominal aortic aneurysm. Lymph nodes: Unremarkable. No enlarged lymph nodes. Urinary bladder: Unremarkable as visualized. Reproductive: Unremarkable as visualized. Bones/joints: Unremarkable. No acute fracture. Soft tissues: Unremarkable. CT/CT kidney stone [id number] IMPRESSION: 1. Mild left-sided hydronephrosis in the setting of double-J stent, which can be seen the setting of obstruction/catheter malfunction. 2. Bilateral nonobstructive renal stones. Radiation Dose CTDIVOL = (mGy): DLP = 1323.58 (mGy-cm)
[2020-08-29] MEDS: ondansetron 2 mg/ML SDV 2 mL 4 MG IVP ×2 (06:12→20:21)
[2020-08-29 06:14] LABS: Add Urine Culture? Yes; Add Urine Microscopic? YES; Bacteria Urine 1+ /hpf; Bilirubin Urine Neg (Negative); Blood Urine 3+ (Negative); Glucose Urine UA Norm (Normal); Ketones Urine 1+ (Negative); Leukocyte Esterase Urine 2+ (Negative); Nitrate Urine Negative (Negative); Protein Urine 3+ (Negative); RBC Urine TOO NUMEROUS TO CNT /hpf (0-2); Squamous Epithelial Cell Urine 0-4 /hpf (0-5); Urine Appearance Cloudy (CLEAR); Urine Color Brown (Yellow); Urobilinogen Urine Norm (Negative); WBC Urine 25-40 /hpf (0-5); pH Urine 6 (5-7)
[2020-08-29] MEDS: sodium chloride 0.9% 1,000 ML 999 ML IV ×2 (06:16→07:29)
[2020-08-29 06:30] LABS: Basophils # 0.1 10^3/uL (0.0-0.1); Basophils % 0.5 %; Eosinophils # 0.1 10^3/uL (0.0-0.8); Eosinophils % 1.2 %; Hematocrit 38.1 % (37.0-47.0); Lymphocytes # 1.4 10^3/uL (0.8-4.8); Lymphocytes % 13.4 %; Mean Corpuscular HGB Conc 34.1 g/dL (30.0-36.0); Mean Corpuscular Hemoglobin 30.7 pg (28.0-34.0); Mean Corpuscular Volume 89.9 fL (81-99); Mean Platelet Volume 9.2 fL (7.4-10.4); Monocytes # 0.7 10^3/uL (0.2-0.9); Monocytes % 6.2 %; Neutrophils # 8.16 10^3/uL (1.8-7.7); Neutrophils % 78.3 %; Nucleated Red Blood Cells % 0 %; Platelet Count 323 10^3/cmm (130-400); Red Blood Count 4.24 10^6/uL (4.1-5.3); Red Cell Distribution Width 14.6 % (12.1-15.1); White Blood Count 10.4 10^3/uL (4.0-10.0)
[2020-08-29 06:50] LABS: Alanine Aminotransferase 9 U/L (0-33); Albumin Level 3.9 g/dL (3.5-5.2); Alkaline Phosphatase 82 IU/L (35-105); Anion Gap 15.7 (5-19); Aspartate Amino Transferase 13 U/L (0-32); Blood Urea Nitrogen 19 mg/dL (6-20); Carbon Dioxide 15 mmol/L (22-29); Chloride 110 mmol/L (98-107); Creatine Phosphokinase 122 U/L (26-192); Globulin 3.1 g/dL (1.3-4.6); Glomerular Filtration Rate 54.2 mL/min (90-130); Glucose 167 mg/dL (65-115); Lipase 14 U/L (13-60); Osmolality Calculated 292 mOsm/kg (285-295); Sodium 138 mmol/L (136-145); Total Bilirubin 0.2 mg/dL (0.15-1.2)
[2020-08-29 06:53] LABS: Lactic Sepsis W/Reflex 1.4 mmol/L (0.5-2.2)
[2020-08-29 06:57] LABS: Potassium 2.7 mmol/L (3.5-5.1)
--- NOTE | 2020-08-29 06:58 | PC.NURSE ---
Received bedside report from JACK Ruiz at this time.
[2020-08-29] MEDS: cefTRIAXone 1,000 MG in sodium chloride 0.9% (plus) 50 ML 100 MG IV (07:11)
[2020-08-29] MEDS: lidocaine 1% 5 ML in potassium chloride premix 100 ML 25 ML IV (07:25)
[2020-08-29] MEDS: morphine 4 mg/mL SDV 1 mL 2 MG IVP (07:59)
--- NOTE | 2020-08-29 08:36 | PC.PHAR ---
pt unable to verify medications-pts melida states he is unsure what she takes or where she keeps her medications-medication entered is from ext med history
[2020-08-29] MEDS: morphine 4 mg/mL SDV 1 mL IVP ×2 (16:40→21:11)
[2020-08-29] MEDS: D5-NS 0.45% + KCL 20 mEq 20 MEQ/1,000 ML BAG 150 MEQ IV ×2 (16:44→23:30)
[2020-08-29] MEDS: ibuprofen 800 mg tablet PO (19:18)
[2020-08-29] MEDS: hyDROXYzine 25 mg Capsule 50 MG PO (19:19)
[2020-08-29] MEDS: gabapentin 300 mg Capsule PO (19:19)
[2020-08-29] MEDS: docusate sodium 100 mg Capsule PO (20:21)
[2020-08-29] MEDS: prazosin 1 mg Capsule 2 MG PO (20:21)
[2020-08-29] MEDS: quetiapine 300 mg Tablet PO (20:21)
[2020-08-30] VITALS (24 sets, daily range): BP systolic 108–163; BP diastolic 69–104; PULSE 20–102; RESP 11–20; TEMP 36.5–37.1; O2SAT 95–100
--- NOTE | 2020-08-30 | SCC_ITS ---
Procedure Done: 1. Cystoscopy, removal of left ureteral stent 2. Left retrograde ureteropyelogram 3. Left flexible ureterorenoscopy, laser lithotripsy 4. Ureteral stent placement, left (6 [place] by 26 cm double-pigtail without string) 46.4 seconds of fluoroscopic guidance, for a cumulative dose of 5.06 mGy, was provided to Dr. Randolph by the radiology department. C-arm images of the abdomen were saved for the patient's permanent record. [place]
[2020-08-30] MEDS: morphine 4 mg/mL SDV 1 mL IVP ×3 (02:54→12:03)
--- NOTE | 2020-08-30 04:45 | PM.HP ---
Providers/Chief Complaint Admitting Physician: Simon Randolph MD Primary Care Provider: Brie Everett DO Chief Complaint: BURNING WHILE PEEING History of Present Illness Performed on 08/29/20 Mishel Kellogg is a 45 year old female well known to me for Bilateral urolithiasis having undergone emergency stenting and delayed treatment for RIGHT obstructing stones with pyelo previously, followed by delayed stent and ESWL to LEFT renal stones recently. Admitted for pain control and treatment of nausea after ED evaluation for LEFT flank pain revealed mild hydro. Stent in position. UA with +WBCs. No fever or chills. + Gross Hematuria Sedated from meds. Discussed stent change, ureteroscopy if no improvement with palliative care of IVF, parenteral pain meds, etc. On extensive poly-pharmacy and need to clarify. All of the above reviewed extensively with her. Review of Systems Const: Reports: change in appetite, fatigue and malaise; Denies: fever(s) or chills Eyes: Denies: change in vision or blurry vision ENMT: Denies: throat pain or hoarseness Card: Denies: chest pain, palpitations or syncope Resp: Denies: dyspnea or productive cough GI: Reports: abdominal pain, nausea and vomiting; Denies: coffee ground emesis or melena : Reports: flank pain and hematuria Musc: Reports: neck pain and back pain; Denies: joint redness or joint warmth Skin/Breast: Denies: rash or pruritus Neuro: Reports: Slurred speech present (medication related); Denies: weakness in extremities or seizure-like activity Psych: Reports: anxiety and depression Lalo/Lymph: Denies: easy bruising or easy bleeding All/Imm: Denies: urticaria or acute wheezing Medications/Allergies Home Medications Medication Instructions Recorded Confirmed Last Taken Type Fetzima 20 mg PO DAILY 02/01/20 08/29/20 08/27/20 08:00 History baclofen 10 mg PO QID PRN 02/01/20 08/29/20 08/27/20 20:00 History buspirone 5 mg PO TID 02/01/20 08/29/20 08/27/20 20:00 History diphenhydramine HCl [Benadryl] 50 mg PO Q4H PRN 02/01/20 08/29/20 08/27/20 20:00 History gabapentin 300 mg PO BID 02/01/20 08/29/20 08/27/20 20:00 History levetiracetam [Keppra] 500 mg PO BID 02/01/20 08/29/20 08/27/20 20:00 History levothyroxine 150 mcg PO DAILY 02/01/20 08/29/20 08/27/20 06:00 History prazosin 2 mg PO BEDTIME 02/01/20 08/29/20 08/27/20 20:00 History quetiapine [Seroquel] 300 mg PO BEDTIME 02/01/20 08/29/20 08/27/20 20:00 History rizatriptan [Maxalt] 10 mg PO PRN 02/01/20 08/29/20 08/27/20 20:00 History docusate sodium [Colace] See Rx Instructions .ROUTE .COMPLEX 06/28/20 08/29/20 08/27/20 20:00 History lactulose 15 ml PO DAILY 06/28/20 08/29/20 08/27/20 08:00 History levothyroxine See Rx Instructions .ROUTE .COMPLEX 06/28/20 08/29/20 08/27/20 06:00 History oxycodone 15 mg PO BID PRN 06/28/20 08/29/20 08/13/20 History pantoprazole [Protonix] 40 mg PO DAILY 06/28/20 08/29/20 08/27/20 08:00 History potassium chloride [Klor-Con M20] 20 meq PO DAILY 06/28/20 08/29/20 Unknown History hydrocodone-acetaminophen [[place]] 1 tab PO Q8H PRN #12 tab 08/13/20 08/29/20 Unknown Rx ondansetron HCl 8 mg tablet 8 mg PO Q8H PRN #6 tab 08/24/20 08/29/20 08/27/20 20:00 Rx PNV,calcium 19-yzak-oerdj acid 1 tab PO DAILY 08/29/20 08/29/20 08/27/20 08:00 History [ Vitamin Plus Low Iron] hydromorphone 8 mg PO BID PRN 08/29/20 08/29/20 08/27/20 20:00 History hydroxyzine HCl 50 mg PO BID 08/29/20 08/29/20 08/27/20 20:00 History ibuprofen 800 mg PO TID PRN 08/29/20 08/29/20 08/27/20 20:00 History morphine 30 mg PO BID PRN 08/29/20 08/29/20 08/27/20 20:00 History sulfamethoxazole-trimethoprim 1 tab PO BID 08/29/20 08/29/20 08/27/20 20:00 History Allergies Allergy/AdvReac Type Severity Reaction Status Date / Time haloperidol [From Haldol] Allergy Severe ALGY-Hives Verified 03/09/20 10:35 promethazine Allergy Severe ALGY-Hives Verified 03/09/20 10:35 meperidine [From Demerol] Allergy ALGY-Hives Verified 03/09/20 10:35 metoclopramide [From Reglan] Allergy ALGY-Swell Verified 08/29/20 08:03 Lip/Tongue/Throat olanzapine [From Zyprexa] Allergy ALGY-Hives Verified 03/09/20 10:35 prochlorperazine Allergy ALGY-Hives Verified 03/09/20 10:35 [From Compazine] PFSH Acute PFSH: Medical History (Updated 08/30/20 @ 04:56 by Simon Randolph MD) Anemia -Has chronic iron deficiency anemia, baseline hemoglobin appears to be around 9 -LMP-01/24 -Continue to monitor H&H closely; transfused 1 unit of PRBCs (02/08), anticipate need for additional blood products Anxiety Arthritis Back disorder Bilateral renal stones Bipolar disorder Chronic back pain Depression History of nephrolithiasis Hypokalemia -Replacement ongoing, continue to monitor levels Physical deconditioning Seizures UTI (urinary tract infection) Surgical History H/O cervical spine surgery H/O knee surgery H/O shoulder surgery History of thyroid surgery Family History Mother Cancer Breast cancer Father Arthritis Social History Smoking and tobacco status: never smoked Alcohol intake: never Household members: spouse Marital status: Number of children: 1 Female Reproductive History: Date of last menstrual period: 07/30/20 Vitals/I&O/Wt Last Vital Signs Temp 98.7 F 08/30/20 00:07 Pulse 102 H 08/30/20 00:07 Resp 18 08/30/20 02:54 BP 116/72 08/30/20 00:07 Pulse Ox 95 08/30/20 00:07 08/29/20 08/29/20 08/30/20 14:59 22:59 06:59 Intake Total 2155 / 2155 120 / 2275 1000 / 3275 Output Total 500 / 500 Balance 2155 / 2155 -380 / 1775 1000 / 2775 Weight last 48 hrs Weight 180 lb Physical Exam Const: COMMON NORMALS: no acute distress, alert and well nourished GENERAL APPEARANCE: well kempt and well developed ORIENTATION/CONSCIOUSNESS: not confused HENMT: HEAD & SCALP: normocephalic and atraumatic Eye: COMMON NORMALS: conjunctivae normal and no scleral icterus Neck/C-Spine: COMMON NORMALS: full ROM GENERAL: Yes normal visual inspection Lymph: LYMPHATIC: no lymphadenopathy noted and no lymphedema noted Resp: COMMON NORMALS: normal respiratory effort EFFORT & INSPECTION: No labored and No Actively coughing AUSCULTATION: clear to auscultation bilaterally Cardio: COMMON NORMALS: regular rate, regular rhythm and No murmurs present (Cardio) RATE: regular rate RHYTHM: regular rhythm BRUITS: no carotid bruits GI: COMMON NORMALS: Soft to palpation and no masses PALPATION: Yes Tenderness to palpation present (GI) Details: LLQ and LUQ : BLADDER/KIDNEY EXAM: Yes CVA tenderness on the left OTHER: bladder non-distended Back/Pelvis: GENERAL BACK: Yes CVA tenderness CVA tenderness: left Extremity: COMMON NORMALS: no clubbing, cyanosis or edema Neuro: COMMON NORMALS: no focal motor deficits SENSORIUM/ORIENTATION: Yes alert Psych: COMMON NORMALS: mental status grossly normal APPEARANCE: Yes grossly normal and Yes well kempt ATTITUDE: Yes calm and Yes engaged Skin: COMMON NORMALS: no rashes or lesions noted and no jaundice GENERAL SKIN EXAM: no rashes or lesions noted, turgor normal and no mottling Data : 08/29/20 06:11 08/29/20 06:11 Micro: Microbiology 08/29/20 06:21 Blood Culture - Preliminary Blood SPECIMEN COLLECTED 08/29/20 06:11 Blood Culture - Preliminary Blood SPECIMEN COLLECTED A&P Assessment and plan (1) Renal colic on left side: Status: Acute (2) Cystitis: Status: Acute (3) Dehydration: Status: Acute (4) Hypokalemia: Status: Acute (5) Bilateral renal stones: Status: Acute (6) Chronic back pain: Status: Acute (7) Polypharmacy: Status: Acute Attestations Medical Necessity Statement*: refractory nausea, vomitting in face of Left hydronephrosis with stent indwelling. Pyuria Time Spent in Patient Care: Greater than 35 minutes (>than 50% of time spent in counselling and/or direct pt care on unit). 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
[2020-08-30] MEDS: D5-NS 0.45% + KCL 20 mEq 20 MEQ/1,000 ML BAG 150 MEQ IV ×2 (05:03→18:07)
[2020-08-30] MEDS: levothyroxine 75 mcg Tablet PO (05:06)
[2020-08-30] MEDS: cefTRIAXone 2,000 MG in sodium chloride 0.9% (plus) 50 ML 100 MG IV (05:06)
[2020-08-30 05:46] LABS: Basophils % 0.8 %; Eosinophils # 0.3 10^3/uL (0.0-0.8); Eosinophils % 4.9 %; Hematocrit 34.2 % (37.0-47.0); Hemoglobin 11.7 g/dL (11.5-15.3); Lymphocytes # 2.5 10^3/uL (0.8-4.8); Lymphocytes % 47.1 %; Mean Corpuscular HGB Conc 34.2 g/dL (30.0-36.0); Mean Corpuscular Hemoglobin 30.8 pg (28.0-34.0); Mean Platelet Volume 9.2 fL (7.4-10.4); Monocytes # 0.5 10^3/uL (0.2-0.9); Monocytes % 9.2 %; Neutrophils # 2.02 10^3/uL (1.8-7.7); Neutrophils % 37.8 %; Nucleated Red Blood Cells % 0 %; Platelet Count 322 10^3/cmm (130-400); Red Cell Distribution Width 15.3 % (12.1-15.1); White Blood Count 5.3 10^3/uL (4.0-10.0)
--- NOTE | 2020-08-30 06:00 | XR_ITS ---
WS: [id number] Exam: XR KUB [id number] Date/Time of Exam: 08/30/2020 5:59 AM Reason For Exam: F/U left ureteral stone Comparison 08/13/2020. A double-J left-sided ureteral stent is in place appearing to be in appropriate location. There are 2 calcifications identified adjacent to the proximal stent in the renal pelvis that apparently represe nting known renal stones. No calcifications are discerned in the right abdomen in the region of the k idney. Marked constipation. No bowel obstruction or free air. Organ margins are almost completely obs cured. Bony structures are unremarkable. Signs of prior cholecystectomy. XR/XR KUB [id number] IMPRESSION: 1. 2 calcifications superimposing the lower pole the left kidney apparently rep resenting known renal stones. 2. Double-J left-sided ureteral stent in place in appropriate location. 3. Marked constipation.
[2020-08-30 06:14] LABS: Anion Gap 11.3 (5-19); Blood Urea Nitrogen 7 mg/dL (6-20); Calcium 8.1 mg/dL (8.5-10.5); Carbon Dioxide 15 mmol/L (22-29); Chloride 115 mmol/L (98-107); Glomerular Filtration Rate 91.3 mL/min (90-130); Glucose 103 mg/dL (65-115); Osmolality Calculated 284 mOsm/kg (285-295); Potassium 3.3 mmol/L (3.5-5.1); Sodium 138 mmol/L (136-145)
--- NOTE | 2020-08-30 07:33 | PC.NURSE ---
Bedside report received from JACK Flores.
--- NOTE | 2020-08-30 07:38 | P.PN_ITS ---
Subjective Subjective: Interval history: Urology follow-up: Hospital day #2 for left flank pain associated with likely obstructed left ureteral stent from fragments post ESWL left renal calculi. No clinical evidence of progressive infectious concerns. She is on Rocephin. Still having pain and nausea. Better controlled the since admission. Was not holding her fluid or medications down at home. Reviewed options including continued conservative management with hopes of spontaneous passage or intervention with stent change, ureteroscopy, possible laser lithotripsy. After significant review she elected to proceed with intervention. We will plan for about this afternoon. Informed consent obtained for cystoscopy, LEFT: Retrograde, ureteroscopy, laser, stent Vitals/I&O/Wt Last Vital Signs Temp 98.2 F 08/30/20 07:26 Pulse 82 08/30/20 07:26 Resp 16 08/30/20 07:26 BP 127/87 08/30/20 07:26 Pulse Ox 98 08/30/20 07:26 08/29/20 08/30/20 08/30/20 22:59 06:59 14:59 Intake Total 120 / 2275 1832.5 / 4107.5 Output Total 500 / 500 1300 / 1800 Balance -380 / 1775 532.5 / 2307.5 Weight last 48 hrs Weight 180 lb Physical Exam Const: COMMON NORMALS: no acute distress, alert and well nourished GENERAL APPEARANCE: well kempt and well developed ORIENTATION/CONSCIOUSNESS: not confused HENMT: HEAD & SCALP: normocephalic and atraumatic Eye: COMMON NORMALS: conjunctivae normal and no scleral icterus Neck/C-Spine: COMMON NORMALS: full ROM GENERAL: Yes normal visual inspect ion Lymph: LYMPHATIC: no lymphadenopathy noted and no lymphedema noted Resp: COMMON NORMALS: normal respiratory effort EFFORT & INSPECTION: No labored and No Actively coughing GI: COMMON NORMALS: Soft to palpation and no masses PALPATION: Yes Tenderness to palpation present (GI) Details: LLQ and LUQ : BLADDER/KIDNEY EXAM: Yes CVA tenderness on the left OTHER: bladder non- distended Back/Pelvis: GENERAL BACK: Yes CVA tenderness CVA tenderness: left Neuro: COMMON NORMALS: no focal motor deficits SENSORIUM/ORIENTATION: Yes alert Psych: COMMON NORMALS: mental status grossly normal APPEARANCE: Yes grossly normal and Yes well kempt ATTITUDE: Yes calm and Yes engaged Skin: COMMON NORMALS: no rashes or lesions noted and no jaundice GENERAL SKIN EXAM: no rashes or lesions noted, turgor normal and no mottling Data : 08/30/20 05:28 08/30/20 05:28 Micro: Microbiology 08/29/20 06:00 Urine Culture - Preliminary Urine,Clean Catch 08/29/20 06:21 Blood Culture - Preliminary Blood NEGATIVE TO DATE 08/29/20 06:11 Blood Culture - Preliminary Blood NEGATIVE TO DATE A&P Assessment and plan (1) Renal colic on left side: Persistent. We will plan for stent change, ureteroscopy, possible laser lithotripsy. Status: Acute (2) Cystitis: Cover with antibiotics. No progression of white count. Normalization. Status: Acute (3) Dehydration: Resolved after IV fluid Status: Acute (4) Hypokalemia: Improved after potassium replacement therapy Status: Acute (5) Bilateral renal stones: Status: Acute (6) Chronic back pain: Continuing home medications. Status: Acute (7) Polypharmacy: Status: Acute Attestations Medical Necessity Statement*: Plan for surgery this afternoon. Potentially could discharge afterwards pending clinical status. 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
[2020-08-30] MEDS: ondansetron 2 mg/ML SDV 2 mL 4 MG IVP (08:00)
[2020-08-30] MEDS: docusate sodium 100 mg Capsule PO ×2 (08:01→20:51)
[2020-08-30] MEDS: BuSPIRONE 5 mg Tablet PO ×2 (08:01→20:51)
[2020-08-30] MEDS: pantoprazole DR 40 mg Tablet PO (08:01)
[2020-08-30] MEDS: levETIRAcetam 500 mg Tablet PO (08:01)
[2020-08-30] MEDS: potassium chloride ER 20 mEq Tablet PO (08:01)
[2020-08-30] MEDS: hyDROXYzine 25 mg Capsule 50 MG PO (08:01)
[2020-08-30] MEDS: gabapentin 300 mg Capsule PO (08:01)
--- NOTE | 2020-08-30 10:57 | PC.CHAP ---
Pastoral Care Encounter/Spiritual Assessment Type of Contact [] Declined mine geologist visit [] Patient/Family/Request visit [] Outpatient visit [] Follow-up visit [] Physician referral [] Code/Alert [X] Routine visit [] Staff referral [] Actively dying [] Patient sleeping [] Family support [] [] Out of room [] Palliative care [] [x] Receiving care in room [] Pre-surgical visit [] Trauma [] Long length of stay [] ICU visit [] Other: Relational/Emotional Strength [x] Patient feels connected with others/family/visitors/staff [] Distress [] Loneliness/isolation [] Abandonment Spirituality of Patient [x] Person of Jennifer [] Attends Holiness of their Jennifer [x] Believes in Prayer [] Reads Bible or Baptist materials [] There are Spiritual issues to be addressed 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 Interventions [x] Prayer [x] Active listening [x] Non-anxious presence [x] Spiritual/emotional support [] Crisis/trauma care [x] Spiritual counseling [] Bereavement support [] Provided bereavement packet [] Provided Bible/devotional materials [] Provided toy/stuffed animal, coloring book to patient or family member [] Provided Communion [] Anointing/Center [] Salvation [x] Completed spiritual assessment [] Other: Impact on Illness or Injury [] Angry [] Fearful [x] Anxious [] Often cries [] Exhaustion [x] Unable to work [] Unable to attend sikh [] Unable to walk/stand [] Unable to read [] Unable to drive [] Unable to eat/drink [] Unable to sleep [] Unable to be with family [] Patient intubated [] Other: Summary had surgery, in pain, has a negative attitude, going home Time spent with patient 10 mins
--- NOTE | 2020-08-30 13:45 | PC.NURSE ---
Pt taken to pre-op by JACK Jj.
--- NOTE | 2020-08-30 14:19 | P.ANESASSM_ITS ---
Pre-Anesthetic Assessment Pre-Anesthetic Assessment: Height/Weight: Height 1.63 m Weight 81.647 kg Temp Pulse Resp BP Pulse Ox 98.2 F 88 16 141/95 100 08/30/20 11:14 08/30/20 11:14 08/30/20 12:03 08/30/20 11:14 08/30/20 11:14 Preop Diagnosis: Left renal calculi Proposed Procedure: Operation Date: 08/30/20 14:25 Proposed Procedures p Cystoscopy(Not Applicable) - Simon Randolph MD s Laser Lithotripsy(Left) - MD jonathan Romero Ureteroscopy(Left) - MD jonathan Romero Ureteral Stent Placement(Left) - Simon Randolph MD s Retrograde Pyelogram(Left) - Simon Randolph MD Was Beta Robert taken within 24 hours: N/A Last intake: Intake Last Liquid Date 08/30/20 Last Liquid Time 08:00 Last Solid Date 08/29/20 Last Solid Time 18:00 Social: Social History: No alcohol and No tobacco Exam: Pre-Anes Outpt Exam: alert, oriented x 3, clear to auscultation bilaterally and regular rate & rhythm Airway: Submandibular: WNL Cervical ROM: WNL MP: 2 Additional comments: Very poor dentition, multiple missing and cracked : Comments: kidney stones GI: Comments: gastritis Musc/skel: Comments: Chronic pain/opioid Neuropsych: Neuropsych: Anxiety, Bipolar and Depression Anesthetic Plan: ASA status: 3 Anesthesia: General Risk of > 500 ml blood loss (7ml/kg in children): No Meds/Allergies Current Medications: Current Medications Generic Name Dose Route Start Last Admin Trade Name Yolande PRN Reason Stop Dose Admin Buspirone HCl 5 mg 08/30/20 09:00 08/30/20 08:01 Buspirone 5 Mg T ablet PO 5 mg TID TRENT Administration Docusate Sodium 100 mg 08/29/20 20:00 08/30/20 08:01 Docusate Sodium 100 Mg Capsule PO 100 mg Q12H TRENT Administration Gabapentin 300 mg 08/29/20 18:00 08/30/20 08:01 Gabapentin 300 M g Capsule PO 300 mg BID TRENT Administration Hydroxyzine Pamoat e 50 mg 08/29/20 18:00 08/30/20 08:01 Hydroxyzine 25 M g Capsule PO 50 mg BID TRENT Administration Potassium Chloride /Dextrose/Sod Cl 20 meq in 1,000 m ls @ 150 mls/hr 08/29/20 14:23 08/30/20 05:03 D5-Ns 0.45% + Maximiliano l 20 Meq IV 150 mls/hr .Q6H40M TRENT Administration Ceftriaxone Sodium 2,000 mg/ 50 mls @ 100 mls/ hr 08/30/20 05:15 08/30/20 08:03 Sodium Chloride IV Infused Q24H TRENT Infusion Protocol Ibuprofen 800 mg 08/29/20 14:23 08/29/20 19:18 Ibuprofen 800 Mg Tablet PO 800 mg TID PRN Administration Pain Lactulose 15 gm 08/30/20 09:00 08/30/20 08:24 Lactulose Oral L iq 20 Gm/30 Ml Udc PO Not Given DAILY TRENT Levetiracetam 500 mg 08/30/20 09:00 08/30/20 08:01 Levetiracetam 50 0 Mg Tablet PO 500 mg BID TRENT Administration Levothyroxine Sodi um 75 mcg 08/30/20 06:00 08/30/20 05:06 Levothyroxine 75 Mcg Tablet PO 75 mcg QAM TRENT Administration Morphine Sulfate 4 mg 08/29/20 14:23 08/30/20 12:03 Morphine 4 Mg/Ml Sdv 1 Ml IVP 4 mg Q4H PRN Administration SEVERE PAIN Ondansetron HCl 4 mg 08/29/20 14:23 08/30/20 08:00 Ondansetron 2 Mg /Ml Sdv 2 Ml IVP 4 mg Q6H PRN Administration NAUSEA AND VOMITI NG Pantoprazole Sodiu m 40 mg 08/30/20 09:00 08/30/20 08:[address] 40 Mg Tablet PO 40 mg DAILY TRENT Administration Potassium Chloride 20 meq 08/30/20 09:00 08/30/20 08:01 Potassium Chlori de Er 20 Meq Table t PO 20 meq DAILY TRENT Administration Prazosin HCl 2 mg 08/29/20 21:00 08/29/20 20:21 Prazosin 1 Mg Ca psule PO 2 mg BEDTIME TRENT Administration Quetiapine Fumarat e 300 mg 08/29/20 21:00 08/29/20 20:21 Quetiapine 300 M g Tablet PO 300 mg BEDTIME TRENT Administration PFSH Anesthesia PFSH: Medical History (Updated 08/30/20 @ 04:56 by Simon Randolph MD) Anemia -Has chronic iron deficiency anemia, baseline hemoglobin appears to be around 9 -LMP-01/24 -Continue to monitor H&H closely; transfused 1 unit of PRBCs (02/08), anticipate need for additional blood products Anxiety Arthritis Back disorder Bilateral renal stones Bipolar disorder Chronic back pain Depression History of nephrolithiasis Hypokalemia -Replacement ongoing, continue to monitor levels Physical deconditioning Seizures UTI (urinary tract infection) Surgical History H/O cervical spine surgery H/O knee surgery H/O shoulder surgery History of thyroid surgery Family History Mother Cancer Breast cancer Father Arthritis Social History Smoking and tobacco status: never smoked Alcohol intake: never Household members: spouse Marital status: Number of children: 1 Female Reproductive History: Date of last menstrual period: 07/30/20 Data Anesthesia CBC & Chem 7: 08/30/20 05:28 08/30/20 05:28 Other Labs: Laboratory Results - last 48 hr 08/29/20 08/29/20 08/29/20 05:42 06:00 06:11 WBC 10.4 H RBC 4.24 Hgb 13.0 Hct 38.1 MCV 89.9 MCH 30.7 MCHC 34.1 RDW 14.6 Plt Count 323 MPV 9.2 Neut % (Auto) 78.3 Lymph % (Auto) 13.4 [place] % (Auto) 6.2 Eos % (Auto) 1.2 Baso % (Auto) 0.5 Neut # (Auto) 8.16 H Lymph # (Auto) 1.4 [place]ff[place] # (Auto) 0.7 Eos # (Auto) 0.1 Baso # (Auto) 0.1 Nucleated RBC % (auto) 0 Nucleated RBCs # 0.0 Sodium Potassium Chloride Carbon Dioxide Anion Gap BUN Creatinine GFR Calculation Glucose POC Glucose 160 H Calculated Osmolality Lactic Acid Calcium Total Bilirubin AST ALT Alkaline Phosphatase Creatine Kinase Total Protein Albumin Globulin Lipase Urine Color Brown Urine Appearance Cloudy Urine pH 6 Ur Specific [place] 1.020 Urine Protein 3+ H Urine Glucose (UA) Norm Urine Ketones 1+ H Urine Blood 3+ H Urine Nitrate Negative Urine Bilirubin Neg Urine Urobilinogen Norm Ur Leukocyte Esterase 2+ H Urine RBC Too numerous to cnt H Urine WBC 25-40 H Ur Squamous Epith Cells 0-4 H Amorphous Sediment Not Reportable Urine Bacteria 1+ H 08/29/20 08/29/20 08/30/20 06:11 06:11 05:28 WBC 5.3 RBC 3.80 L Hgb 11.7 Hct 34.2 L MCV 90.0 MCH 30.8 MCHC 34.2 RDW 15.3 H Plt Count 322 MPV 9.2 Neut % (Auto) 37.8 Lymph % (Auto) 47.1 [place] % (Auto) 9.2 Eos % (Auto) 4.9 Baso % (Auto) 0.8 Neut # (Auto) 2.02 Lymph # (Auto) 2.5 [place]ff[place] # (Auto) 0.5 Eos # (Auto) 0.3 Baso # (Auto) 0.0 Nucleated RBC % (auto) 0 Nucleated RBCs # 0.0 Sodium 138 Potassium 2.7 L* Chloride 110 H Carbon Dioxide 15 L Anion Gap 15.7 BUN 19 Creatinine 1.1 H GFR Calculation 54.2 L Glucose 167 H POC Glucose Calculated Osmolality 292 Lactic Acid 1.4 Calcium 9.0 Total Bilirubin 0.2 AST 13 ALT 9 Alkaline Phosphatase 82 Creatine Kinase 122 Total Protein 7.0 Albumin 3.9 Globulin 3.1 Lipase 14 Urine Color Urine Appearance Urine pH Ur Specific [place] Urine Protein Urine Glucose (UA) Urine Ketones Urine Blood Urine Nitrate Urine Bilirubin Urine Urobilinogen Ur Leukocyte Esterase Urine RBC Urine WBC Ur Squamous Epith Cells Amorphous Sediment Urine Bacteria 08/30/20 05:28 WBC RBC Hgb Hct MCV MCH MCHC RDW Plt Count MPV Neut % (Auto) Lymph % (Auto) [place]ff[place] % (Auto) Eos % (Auto) Baso % (Auto) Neut # (Auto) Lymph # (Auto) [place]ff[place] # (Auto) Eos # (Auto) Baso # (Auto) Nucleated RBC % (auto) Nucleated RBCs # Sodium 138 Potassium 3.3 L Chloride 115 H Carbon Dioxide 15 L Anion Gap 11.3 BUN 7 Creatinine 0.7 GFR Calculation 91.3 Glucose 103 POC Glucose Calculated Osmolality 284 L Lactic Acid Calcium 8.1 L Total Bilirubin AST ALT Alkaline Phosphatase Creatine Kinase Total Protein Albumin Globulin Lipase Urine Color Urine Appearance Urine pH Ur Specific [place] Urine Protein Urine Glucose (UA) Urine Ketones Urine Blood Urine Nitrate Urine Bilirubin Urine Urobilinogen Ur Leukocyte Esterase Urine RBC Urine WBC Ur Squamous Epith Cells Amorphous Sediment Urine Bacteria Micro: Microbiology 08/29/20 06:00 Urine Culture - Preliminary Urine,Clean Catch 08/29/20 06:21 Blood Culture - Preliminary Blood NEGATIVE TO DATE 08/29/20 06:11 Blood Culture - Preliminary Blood NEGATIVE TO DATE Cardiac Studies: No Data to Display
--- NOTE | 2020-08-30 15:27 | SC_ITS ---
WS: [id number] Exam: C-arm FL for Urology Date/Time of Exam: 08/30/2020 3:27 PM Reason For Exam: SURGERY 2 AP C-arm images of the left abdomen is submitted for evaluation. Opacification of the left renal pelvis with radiographic contrast demonstrates filling defects in the lower calyx of the left kidney apparently the site of the patient's known renal stones. A ureterosco pe is noted in the lower calyceal structures of the left kidney in addition to a guidewire that exten ds into the upper calyx of the left kidney. The last image of the series demonstrates a left ureteral stent has been replaced and is positioned in the central calyceal system of the left kidney. No othe r significant finding on this limited series.
--- NOTE | 2020-08-30 15:34 | P.OP_ITS ---
Operative Report Date of procedure: August 30, 2020 Pre-op Diagnosis: Left renal calculi fragments. Possible obstructed left ureteral stent Post-op diagnosis: same Procedure Done: 1. Cystoscopy, removal of left ureteral stent 2. Left retrograde ureteropyelogram 3. Left flexible ureterorenoscopy, laser lithotripsy 4. Ureteral stent placement, left (6 Nepalese by 26 cm double-pigtail without string) Surgeon: Agustín Anesthesia: General Estimated blood loss: Minimum Urine output: Not measured Complications: None Findings: Multiple stones in the ureter requiring fragmentation and basketing for removal. Collection of stones pieces and 2 of the lower pole calyces fragmented with 100 ?m thulium superpulse laser fiber into very tiny fragments with expectation of easy passage. Condition: stable Disposition: PACU Brief History: Ms. Euceda is a pleasant 45-year-old white female who recently underwent ESWL to 2 stones in the left lower pole. At the time of treatment the change appeared to be quite dramatic. A stent was placed to avoid obstructive postoperative problems related to passage of the pieces. She did well initially but had increasing pain nausea without fever okay anemic, and CT scan did demonstrate some hydronephrosis of the left kidney with a stent in appropriate position. She was admitted for symptomatic control and IV antibiotics and that she did have some pyuria but no nitrites and a mildly elevated at most white count. Follow-up KUB today showed that the stones seen and treated previously were dramatically changed and appear to be collection of fragments as opposed to solid stones at this point. Because she was having persistent pain it was offered to her to proceed with cystoscopy stent removal ureteroscopy possible completion laser lithotripsy or stent exchange. Procedure: After urgent preoperative evaluation examination and obtaining of informed consent she was taken to the operating suite on 08/30/2020 where general anesthesia was administered without difficulty after appropriate timeout was performed, SCDs confirmed to be functioning, preoperative antibiotics administered, beta-mary protocol confirmed. Prepped and draped in the usual sterile fashion in dorsolithotomy position paying careful attention to avoiding pressure points. 21 Nepalese cystoscope with 30 degree lens was introduced into the urethral meatus and advanced into the bladder under videoscopy. The bladder was systematically examined. There were few small stone fragments in the bladder. The stent was in the expected position without encrustation. A flexible tip guidewire was easily advanced up the left ureter next to the stent curling in the area of the upper pole calyx. The wire was secured to the drapes as a safety wire. The stent was then removed with grasping forceps with easy uncurling of the proximal and. There was no excessive tension. The wire was secured to the drapes as a safety wire and then offset semirigid ureteroscope was advanced up the left ureter next to the wire. Multiple stone fragments were encountered along the course of the ureter and a 365 ?m thulium superpulse laser fiber was utilized to fragment these into small enough pieces that were then easily removed with a parachute basket. The scope was passed all the way to the UPJ to clarify no further stones within the ureter. A second wire was then passed through the scope curling in the upper pole calyx area and then the scope was removed. A 7 Nepalese flexible digital ureteroscope was then advanced over the second wire, the working wire, up the left ureter into the renal pelvis. The renal pelvis was flushed free of the cloudy sediment urine. Contrast was injected for a RETROGRADE URETEROPYELOGRAM highlighting the renal pelvis, calyces and proximal ureter. There were some filling defects in the lower pole calyx as expected but no other abnormality was identified. The flexible ureteroscope was then utilized with the assistance of contrast in the collecting system to inspect all the calyces. There was a large collection of small medium and moderate sized fragments in 2 of the the lower pole calyces. 100 ?m thulium superpulse laser fiber was utilized in order to fully flex the scope into the lower pole calyx and the collection of fragments was fully treated with laser into a very very small fragment smaller than the tip of the laser itself. On final inspection of these 2 calyces I could see no fragments that were felt to be too large to pass spontaneously. Irrigation was conducted to flush out some of the fragments and to fully inspect. There was no significant bleeding and again no larger fragments. The scope was removed under direct vision and no additional fragments were seen in the ureter. Cystoscope was then backloaded over the safety wire and a 6 Nepalese by 26 cm double-pigtail stent was advanced without difficulty over the guidewire through the cystoscope into appropriate position as confirmed via fluoroscopy and cystoscopy. Multiple fragments were flushed free from the bladder and the procedure was completed. She tolerated the procedure well without complications and was awakened in the operating room and returned to the recovery room in stable condition. PLANS: 1. We will admit to inpatient status for observation overnight for pain control and observation for potential infectious concerns. 2. If she does well we will send her home tomorrow with stent indwelling and plans to follow-up in a couple weeks for KUB and possible cystoscopy with stent removal in the clinic.
[2020-08-30] MEDS: iohexol 300 mg/mL 50 mL Btl (OR ONLY) XX (16:14)
[2020-08-30] MEDS: fentaNYL 50 mcg/mL INJ 2mL IVP ×2 (17:21→17:26)
--- NOTE | 2020-08-30 18:12 | PC.NURSE ---
Pt retruned to floor from surgery. Report received from JACK Jj.
[2020-08-30] MEDS: prazosin 1 mg Capsule 2 MG PO (20:50)
[2020-08-30] MEDS: quetiapine 300 mg Tablet PO (20:51)
[2020-08-31] VITALS (10 sets, daily range): BP systolic 127–140; BP diastolic 83–93; PULSE 94–111; RESP 16–18; TEMP 36.6–37.3; O2SAT 94–99
[2020-08-31] MEDS: morphine 4 mg/mL SDV 1 mL IVP ×3 (00:06→09:25)
[2020-08-31] MEDS: ondansetron 2 mg/ML SDV 2 mL 4 MG IVP (00:06)
[2020-08-31] MEDS: D5-NS 0.45% + KCL 20 mEq 20 MEQ/1,000 ML BAG 150 MEQ IV (01:00)
--- NOTE | 2020-08-31 03:07 | PC.NURSE ---
Patient repeatedly asks for pain medication 1-2 hours before it is due. She asked this RN if I could just give it a little early for her . This RN explained to patient that I could not legally do this and asking for pain medication like this was not appropriate. Pt then called the GAS ENGINE MECHANIC into her room at 0307 to tell her to tell this RN that she could have her pain medication at 0400.
[2020-08-31] MEDS: cefTRIAXone 2,000 MG in sodium chloride 0.9% (plus) 50 ML 100 MG IV (04:31)
[2020-08-31] MEDS: levothyroxine 75 mcg Tablet PO (05:24)
[2020-08-31 05:47] LABS: Alanine Aminotransferase 9 U/L (0-33); Albumin Level 3.2 g/dL (3.5-5.2); Alkaline Phosphatase 68 IU/L (35-105); Anion Gap 12.2 (5-19); Aspartate Amino Transferase 12 U/L (0-32); Blood Urea Nitrogen 4 mg/dL (6-20); Carbon Dioxide 16 mmol/L (22-29); Chloride 114 mmol/L (98-107); Creatinine Clr Calc Pharmacy 124.9705; Globulin 2.5 g/dL (1.3-4.6); Glomerular Filtration Rate 109.1 mL/min (90-130); Glucose 139 mg/dL (65-115); Osmolality Calculated 287 mOsm/kg (285-295); Potassium 3.2 mmol/L (3.5-5.1); Sodium 139 mmol/L (136-145); Total Bilirubin 0.2 mg/dL (0.15-1.2); Total Protein 5.7 g/dL (6.6-8.7)
[2020-08-31 06:04] LABS: Basophils % 0.6 %; Eosinophils % 0.3 %; Hematocrit 31.4 % (37.0-47.0); Hemoglobin 10.8 g/dL (11.5-15.3); Lymphocytes # 1.6 10^3/uL (0.8-4.8); Lymphocytes % 21.8 %; Mean Corpuscular HGB Conc 34.4 g/dL (30.0-36.0); Mean Corpuscular Hemoglobin 30.9 pg (28.0-34.0); Mean Corpuscular Volume 89.7 fL (81-99); Mean Platelet Volume 9.5 fL (7.4-10.4); Monocytes # 0.7 10^3/uL (0.2-0.9); Monocytes % 9.7 %; Neutrophils # 4.89 10^3/uL (1.8-7.7); Neutrophils % 67.3 %; Nucleated Red Blood Cells % 0 %; Platelet Count 330 10^3/cmm (130-400); Red Cell Distribution Width 15.3 % (12.1-15.1); White Blood Count 7.3 10^3/uL (4.0-10.0)
--- NOTE | 2020-08-31 06:57 | PM.DCS ---
Discharge Providers Date of Admission: 08/29/20 07:11 Date of Discharge: August 31, 2020 Attending Provider at Admission: Simon Randolph MD Attending Provider at Discharge: Simon Randolph MD Primary Care Provider: Brie Everett DO Diagnoses at Discharge Discharge Diagnosis (1) Renal colic on left side: Status: Acute (2) Cystitis: Status: Acute (3) Dehydration: Status: Acute (4) Hypokalemia: Status: Acute (5) Bilateral renal stones: Status: Acute (6) Chronic back pain: Status: Acute (7) Polypharmacy: Status: Acute Reason for Visit Reason for Visit: Left renal colic Hospital Course Hospital Course Admitted on 08/29/2020 through the emergency department for refractory nausea vomiting and left flank pain. CT scan showed some new hydronephrosis and was felt to be related to stent partial occlusion from sand and fragments along the stent in the ureter. She still had some fragments in the kidney itself. She was initially treated with conservative measures including IV fluids, pain medication, but failed to significantly improve and for that reason was taken to the operating room on 08/30/2020 for cystoscopy, stent removal, ureteroscopic laser lithotripsy of ureteral fragments and laser lithotripsy of left lower pole fragments. At the completion of the procedure it appeared that all the fragments that remained were very small and very likely to pass. The ones that had been treated in the ureter were removed with a basket. Postoperatively on postop day #1 she was deemed to be a good candidate for further convalescence at home. There was no evidence of progressive infection. She was still complaining of pain but she does have chronic pain. Because of the concern of infectious status when she was admitted on all Septra DS her discharge medications were changed to reflect discontinuation of Septra and addition of LEVAQUIN 500 mg daily x14 days with 1 refill. 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 Discharged in stable condition. Physical Exam Const: COMMON NORMALS: no acute distress, alert and well nourished GENERAL APPEARANCE: well kempt and well developed ORIENTATION/CONSCIOUSNESS: not confused HENMT: COMMON NORMALS: normocephalic and atraumatic HEAD & SCALP: normocephalic and atraumatic Resp: COMMON NORMALS: normal respiratory effort EFFORT & INSPECTION: No labored and No Actively coughing Neuro: COMMON NORMALS: no focal motor deficits SENSORIUM/ORIENTATION: Yes alert Psych: APPEARANCE: Yes grossly normal and Yes well kempt ATTITUDE: Yes calm and Yes engaged Skin: COMMON NORMALS: no rashes or lesions noted and no jaundice GENERAL SKIN EXAM: no rashes or lesions noted Discharge Data Data Completed and Pending: Completed Studies During Hospitalization Category Date Time Status CT kidney stone [id number] Stat Cat Scan 08/29/20 06:08 Completed XR KUB [id number] Rout ine Exams 08/30/20 06:00 Completed Pending at discharge Category Date Time Status C-arm FL for Urol ogy Routine Exams 08/30/20 15:27 Taken Blood Culture Sta t Lab 08/29/20 06:21 Results Stone Analysis Ro utine Lab 08/30/20 16:51 Ordered Urine Culture Sta t Lab 08/29/20 06:00 Results Pathology: Surgic al [PTH] Routine Pth 08/30/20 16:52 Ordered Labs from last 24 hours 08/31/20 08/31/20 04:26 04:26 WBC 7.3 RBC 3.50 L Hgb 10.8 L Hct 31.4 L MCV 89.7 MCH 30.9 MCHC 34.4 RDW 15.3 H Plt Count 330 MPV 9.5 Neut % (Auto) 67.3 Lymph % (Auto) 21.8 [place] % (Auto) 9.7 Eos % (Auto) 0.3 Baso % (Auto) 0.6 Neut # (Auto) 4.89 Lymph # (Auto) 1.6 [place] # (Auto) 0.7 Eos # (Auto) 0.0 Baso # (Auto) 0.0 Nucleated RBC % (a uto) 0 Nucleated RBCs # 0.0 Sodium 139 Potassium 3.2 L Chloride 114 H Carbon Dioxide 16 L Anion Gap 12.2 BUN 4 L Creatinine 0.6 GFR Calculation 109.1 Glucose 139 H Calculated Osmolal ity 287 Calcium 8.0 L Total Bilirubin 0.2 AST 12 ALT 9 Alkaline Phosphata se 68 Total Protein 5.7 L Albumin 3.2 L Globulin 2.5 Vitals: Last Vital Signs Temp 99.1 F 08/31/20 05:37 Pulse 102 H 08/31/20 05:37 Resp 16 08/31/20 05:37 BP 131/86 08/31/20 05:37 Pulse Ox 97 08/31/20 05:37 Discharge Plan Discharge Patient Disposition: Home Condition: Stable Prescriptions: New levofloxacin 500 mg tablet 500 mg PO DAILY 14 Days Qty: 14 RF: 1 Continued ondansetron HCl 8 mg tablet 8 mg PO Q8H PRN (Reason: Nausea) Qty: 6 RF: 0 oxycodone 15 mg Tablet 15 mg PO BID PRN (Reason: Pain) RF: 0 levothyroxine 75 mcg tablet See Rx Instructions .ROUTE .COMPLEX RF: 0 pantoprazole [Protonix] 40 mg Tablet,Delayed Release (Dr/Ec) 40 mg PO DAILY RF: 0 docusate sodium [Colace] 100 mg Capsule See Rx Instructions .ROUTE .COMPLEX RF: 0 lactulose 10 gram/15 mL solution 15 ml PO DAILY RF: 0 potassium chloride [Klor-Con M20] 20 mEq tablet,ER particles/crystals 20 meq PO DAILY RF: 0 buspirone 5 mg tablet 5 mg PO TID RF: 0 quetiapine [Seroquel] 300 mg tablet 300 mg PO BEDTIME RF: 0 levetiracetam [Keppra] 500 mg tablet 500 mg PO BID RF: 0 rizatriptan [Maxalt] 10 mg Tablet 10 mg PO PRN RF: 0 baclofen 10 mg tablet 10 mg PO QID PRN (Reason: Muscle Spasm) RF: 0 diphenhydramine HCl [Benadryl] 25 mg Capsule 50 mg PO Q4H PRN (Reason: Allergy Symptoms) RF: 0 levothyroxine 150 mcg tablet 150 mcg PO DAILY RF: 0 gabapentin 100 mg capsule 300 mg PO BID RF: 0 prazosin 2 mg Capsule 2 mg PO BEDTIME RF: 0 Fetzima 20 mg capsule,extended release 24 hr 20 mg PO DAILY RF: 0 hydrocodone-acetaminophen [[place]] 5-325 mg tablet 1 tab PO Q8H PRN (Reason: pain) Qty: 12 RF: 0 ibuprofen 800 mg tablet 800 mg PO TID PRN (Reason: Pain) RF: 0 hydromorphone 8 mg tablet 8 mg PO BID PRN (Reason: Pain) RF: 0 hydroxyzine HCl 50 mg tablet 50 mg PO BID RF: 0 morphine 30 mg tablet extended release 30 mg PO BID PRN (Reason: Pain) RF: 0 Vitamin Plus Low Iron 27 mg iron- 1 mg tablet 1 tab PO DAILY RF: 0 Discontinued sulfamethoxazole-trimethoprim 800-160 mg tablet 1 tab PO BID RF: 0 Discharge Orders: Discharge Order (Routine); Ordered 08/31/20 Ordered By: Simon Randolph Referrals: Simon Randolph MD [Physician] - 2 weeks ([facility] first. Possible cystoscopy with stent removal.) Brie Everett DO [Primary Care Provider] - Discharge Diet: Usual diet Discharge Activity: Increase activity as tolerated Activity Restrictions/Additional Instructions: 1. You have a stent in place that needs to be removed. 2. We will see you back in about 2 weeks with a plain x-ray at the hospital first. If it looks as good as I think it will based on the intraoperative findings we will remove the stent in the clinic. 3. Continue straining your urine and save the pieces and bring them with you to the office. 4. No change in your baseline medications. Discharge Attestations Time Spent in Discharge Care*: less than 30 min Status at Discharge: Cognitive status at discharge: cognitively intact, Behavioral status at discharge: cooperative, Quality Metrics Clinical Quality Measures During this hospital stay, did patient experience: None Coding Level of Care Code Acute Perinatal Technician for g Fwd Exam Detailed Diagnoses Renal colic on left side N23 Cystitis N30.90 Dehydration E86.0 Hypokalemia E87.6 Bilateral renal stones N20.0 Chronic back pain M54.9; G89.29 Polypharmacy Z79.899
--- NOTE | 2020-08-31 07:18 | PC.NURSE ---
Postop vital sign sheet found at bedside during this nurse's first rounding. Postop vitals entered into pt chart.
--- NOTE | 2020-08-31 07:40 | ANE.PACU2 ---
Inpatient post-anesthesia follow up: Airway intact: Yes Vital signs: Temperature 99.1 F Pulse Rate [Monito r] 111 Pulse Rate 102 Respiratory Rate 16 Blood Pressure [Le ft Arm] 130/90 Blood Pressure 131/86 Pulse Oximetry 97 Oxygen Delivery Me thod Room Air Oxygen Flow Rate Fraction of Inspir ed Oxygen Hydration adequate: Yes Nausea and vomiting: No Pain level: 2 Mental status: Baseline
[2020-08-31] MEDS: hyDROXYzine 25 mg Capsule 50 MG PO (08:55)
[2020-08-31] MEDS: gabapentin 300 mg Capsule PO (08:56)
[2020-08-31] MEDS: levETIRAcetam 500 mg Tablet PO (08:56)
[2020-08-31] MEDS: BuSPIRONE 5 mg Tablet PO (08:56)
[2020-08-31] MEDS: levothyroxine 75 mcg Tablet 150 MCG PO (08:56)
[2020-08-31] MEDS: pantoprazole DR 40 mg Tablet PO (08:56)
[2020-08-31] MEDS: docusate sodium 100 mg Capsule PO (08:56)
[2020-08-31] MEDS: potassium chloride ER 20 mEq Tablet PO (08:56)
[2020-08-31] MEDS: diphenhydrAMINE 25 mg Capsule 50 MG PO (12:00)
[2020-08-31] MEDS: ibuprofen 800 mg tablet PO (13:41)
== END 2020-08-31 14:23 | disposition home or self-care (01) ==
LOC: ER 08:27 → ER IP 11:46 → MEDSURG 12:47
PROVIDERS: Admitting Provider Urology; Emergency Provider Family Medicine; PCP Family Medicine; Visit Provider Urology
PROC: 0TJB8ZZ Inspection of Bladder, Via Natural or Artificial Opening Endoscopic (ICD-10-PCS; CPT 52000; principal; 2020-08-30 14:25)
PROC: (CPT 52356; 2020-08-30 14:25)
PROC: 0TJ98ZZ Inspection of Ureter, Via Natural or Artificial Opening Endoscopic (ICD-10-PCS; CPT 52351; 2020-08-30 14:25)
PROC: (CPT 50605; 2020-08-30 14:25)
PROC: (CPT 74420; 2020-08-30 14:25)
DX: N20.2 Calculus of kidney with calculus of ureter (principal); E86.0 Dehydration; E87.6 Hypokalemia; N20.0 Calculus of kidney
CPT/HCPCS: 52356; 36415; 36416; 74018; 74176; 76000; 80048; 80053; 81001; 82365; 82550; 82962; 83605; 83690; 85025; 87040; 87086; 88300; 96361; 96365; 96366; 96367; 96375; 96376; 99285; C2625; G0378; J0696; J1100; J2270; J2405; J2704; J3010; J3480; J3490; J7030

== ENCOUNTER 2020-09-14 09:35 | Outpatient (CLI) | payer BC, MEDICAID, SELFPAY ==
--- NOTE | 2020-09-14 09:30 | XR_ITS ---
WS: [id number] KUB, AP view, 09/14/2020 Clinical Data: BILATERAL RENAL STONES Comparison: [facility], 08/30/2020. Findings: There is a calcification overlying the inferior pole of the left kidney. There is a calcification ove rlying the inferior pole of the right kidney. The left ureteral stent is in good position. No abnormal intraabdominal masses are seen. There is no dilatated small bowel or evidence of obstruction. There are clips in the right upper quadrant from a cholecystectomy. There is a large amount of fecal material throughout the colon. XR/XR KUB [id number] Impression: 1. Left ureteral stent. 2. Possible bilateral renal calcifications.
== END 2020-09-14 09:36 | disposition home or self-care (01) ==
LOC: RAD 09:36
PROVIDERS: PCP Family Medicine; Visit Provider Urology
DX: N20.0 Calculus of kidney (principal); Z96.0 Presence of urogenital implants
CPT/HCPCS: 74018; 81003

== ENCOUNTER 2021-04-12 15:35 | Emergency (ER) | payer BC, MEDICAID, SELFPAY ==
[2021-04-12 15:47] VITALS: BP 154/110; PULSE 88; RESP 18; TEMP 36.8; O2SAT 99; BMI 30.4
[2021-04-12 20:03] LABS: Basophils % 0.4 %; Eosinophils # 0.2 10^3/uL (0.0-0.8); Hematocrit 36.6 % (37.0-47.0); Hemoglobin 12.4 g/dL (11.5-15.3); Lymphocytes # 1.5 10^3/uL (0.8-4.8); Lymphocytes % 19.1 %; Mean Corpuscular HGB Conc 33.9 g/dL (30.0-36.0); Mean Corpuscular Hemoglobin 30.5 pg (28.0-34.0); Mean Corpuscular Volume 90.1 fl (81-99); Mean Platelet Volume 8.8 fL (7.4-10.4); Monocytes # 0.7 10^3/uL (0.2-0.9); Monocytes % 9.3 %; Neutrophils # 5.52 10^3/uL (1.8-7.7); Neutrophils % 68.9 %; Nucleated Red Blood Cells % 0 %; Platelet Count 279 10^3/cmm (130-400); Red Blood Count 4.06 10^6/uL (4.1-5.3); Red Cell Distribution Width 13.2 % (12.1-15.1)
[2021-04-12 20:30] LABS: Alanine Aminotransferase 12 U/L (0-33); Albumin Level 3.8 g/dL (3.5-5.2); Alkaline Phosphatase 55 IU/L (35-105); Anion Gap 11.2 (5-19); Aspartate Amino Transferase 13 U/L (0-32); Blood Urea Nitrogen 11 mg/dL (6-20); Calcium 8.5 mg/dL (8.5-10.5); Carbon Dioxide 18 mmol/L (22-29); Chloride 111 mmol/L (98-107); Globulin 2.4 g/dL (1.3-4.6); Glomerular Filtration Rate 77.9 mL/min (90-130); Glucose 104 mg/dL (65-115); Lipase 13 U/L (13-60); Osmolality Calculated 284 mOsm/kg (285-295); Potassium 3.2 mmol/L (3.5-5.1); Sodium 137 mmol/L (136-145); Total Bilirubin 0.2 mg/dL (0.15-1.2); Total Protein 6.2 g/dL (6.6-8.7)
[2021-04-12 20:34] LABS: Acetaminophen < 5.0 ug/mL (10-30); Salicylate < 0.3 mg/dL (3-10)
[2021-04-12] MEDS: ondansetron 4 MG Tablet PO (21:56)
--- NOTE | 2021-04-12 22:42 | ED_ITS ---
HPI - General Adult General: Chief complaint: Psychiatric Symptoms Stated complaint: PSYCH/ STRESSED OUT Time Seen by Provider: 04/12/21 15:47 History of Present Illness: HPI narrative: Patient is a 46-year-old female with history of depression and anxiety on Seroquel, buspirone, and Vistaril who presents the emergency room for worsening depression symptoms. Patient denies any suicidal ideation but reports that her depression has been worse. Patient wanted to see if her medication can be adjusted. Denies any active hallucination or homicidal ideation. Onset: chronic Duration:ongoing Location:home Severity: moderate Review of Systems Narrative: Constitutional: No fever, no chills. HEENT: No vision changes CV: No chest pain, no palpitations PULM: no cough, no dyspnea. GI: No abdominal pain, no N/V/D. : No dysuria MSKEL: No muscle pain SKIN: No new rashes, no lesions. NEURO: No headache, no focal weakness. HEME: No visible bruises PSYCH: Normal mood PFSH ED PFSH: Medical History Anemia -Has chronic iron deficiency anemia, baseline hemoglobin appears to be around 9 -LMP-01/24 -Continue to monitor H&H closely; transfused 1 unit of PRBCs (02/08), anticipate need for additional blood products Anxiety Arthritis Back disorder Bilateral renal stones Bipolar disorder Chronic back pain Depression History of nephrolithiasis Hypokalemia -Replacement ongoing, continue to monitor levels Physical deconditioning Seizures UTI (urinary tract infection) Surgical History H/O cervical spine surgery H/O knee surgery H/O shoulder surgery History of thyroid surgery Family History Mother Cancer Breast cancer Father Arthritis Social History Smoking and tobacco status: never smoked Alcohol intake: never Household members: spouse Marital status: Number of children: 1 Female Reproductive History: Date of last menstrual period: 07/30/20 Physical Exam Narrative: EXAM NARRATIVE: Head: Atraumatic Eyes: PERRL, conjunctiva without injection ENT: Mucous membrane moist NECK: Supple, ROM intact LUNGS: LCTAB, no crackles/rhonchi CV: RRR ABDOMEN: Soft, nontender in all quadrants EXTREMITY: Normal ROM SKIN: No rash or erythema NEURO: Awake and alert, no focal motor deficits PSYCH: Normal mood and affect Course Vital Signs: Vital signs: Vital Signs Temperature 98.2 F 04/12/21 15:47 Pulse Rate 88 04/12/21 22:55 Respiratory Rate 18 04/12/21 22:55 Blood Pressure 146/84 04/12/21 22:55 Pulse Oximetry 99 04/12/21 22:55 MDM - General Adult MDM Narrative: Medical decision making narrative: 46-year-old female presented to the emergency room for concerns of worsening depression despite multiple medication. Currently, patient denies any SI or HI. I discussed case with Dr. Smith who recommended outpatient medication change at this time. Patient did not meet criteria for acute inpatient psychiatric admission. Patient continues to endorse denying SI/HI or active hallucination. Disposition: Discharge. Patient counseled regarding diagnostic impression, treatment plan. Patient given ED strict return precautions to return for continuation, worsening, or development of new symptoms. Instructed to f/u w/ outpatient behavior health regarding symptoms today. Patient verbalized understanding. Lab Data: Labs: Lab Results 04/12/21 04/12/21 04/12/21 16:57 16:57 16:57 WBC RBC Hgb Hct MCV MCH MCHC RDW Plt Count MPV Neut % (Auto) Lymph % (Auto) [place] % (Auto) Eos % (Auto) Baso % (Auto) Neut # (Auto) Lymph # (Auto) [place] # (Auto) Eos # (Auto) Baso # (Auto) Nucleated RBC % (a uto) Nucleated RBCs # Sodium Potassium Chloride Carbon Dioxide Anion Gap BUN Creatinine GFR Calculation Glucose Calculated Osmolal ity Calcium Total Bilirubin AST ALT Alkaline Phosphata se Total Protein Albumin Globulin Lipase Urine Color Yellow (Yellow) Urine Appearance Clear (CLEAR) Urine pH 7 (5-7) Ur Specific Gravit y 1.010 (1.005-1.030) Urine Protein Neg (Negative) Urine Glucose (UA) Norm (Normal) Urine Ketones Negative (Negative) Urine Blood Neg (Negative) Urine Nitrate Negative (Negative) Urine Bilirubin Neg (Negative) Urine Urobilinogen Norm mg/dL mg/dL (Negative) Ur Leukocyte [place] a[place] Negative (Negative) Urine HCG, Qual Negative (Negative) Salicylates Urine Opiates Scre en Positive ng/mL H ng/mL (Negative) Acetaminophen Ur Barbiturates Sc reen Negative ng/mL ng /mL (Negative) Ur Phencyclidine S crn Negative ng/mL ng /mL (Negative) Ur Amphetamines Sc reen Negative ng/mL ng /mL (Negative) U Benzodiazepines Scrn Negative ng/mL ng /mL (Negative) Urine Cocaine Scre en Negative ng/mL ng /mL (Negative) U Marijuana (THC) Screen Negative ng/mL ng /mL (Negative) 04/12/21 04/12/21 19:43 19:43 WBC 8.0 10^3/uL 10^3/ uL (4.0-10.0) RBC 4.06 10^6/uL L 10 ^6/uL (4.1-5.3) Hgb 12.4 g/dL g/dL (11.5-15.3) Hct 36.6 % L % (37.0-47.0) MCV 90.1 fl fl (81-99) MCH 30.5 pg pg (28.0-34.0) MCHC 33.9 g/dL g/dL (30.0-36.0) RDW 13.2 % % (12.1-15.1) Plt Count 279 10^3/cmm 10^3 /cmm (130-400) MPV 8.8 fL fL (7.4-10.4) Neut % (Auto) 68.9 % % Lymph % (Auto) 19.1 % % [place] % (Auto) 9.3 % % Eos % (Auto) 2.0 % % Baso % (Auto) 0.4 % % Neut # (Auto) 5.52 10^3/uL 10^3 /uL (1.8-7.7) Lymph # (Auto) 1.5 10^3/uL 10^3/ uL (0.8-4.8) [place] # (Auto) 0.7 10^3/uL 10^3/ uL (0.2-0.9) Eos # (Auto) 0.2 10^3/uL 10^3/ uL (0.0-0.8) Baso # (Auto) 0.0 10^3/uL 10^3/ uL (0.0-0.1) Nucleated RBC % (a uto) 0 % % Nucleated RBCs # 0.0 /100WBC /100W BC Sodium 137 mmol/L mmol/L (136-145) Potassium 3.2 mmol/L L mmol /L (3.5-5.1) Chloride 111 mmol/L H mmol /L (98-107) Carbon Dioxide 18 mmol/L L mmol/ L (22-29) Anion Gap 11.2 (5-19) BUN 11 mg/dL mg/dL (6-20) Creatinine 0.8 mg/dL mg/dL (0.5-0.9) GFR Calculation 77.9 mL/min L mL/ min (90-130) Glucose 104 mg/dL mg/dL (65-115) Calculated Osmolal ity 284 mOsm/kg L mOs m/kg (285-295) Calcium 8.5 mg/dL mg/dL (8.5-10.5) Total Bilirubin 0.2 mg/dL mg/dL (0.15-1.2) AST 13 U/L U/L (0-32) ALT 12 U/L U/L (0-33) Alkaline Phosphata se 55 IU/L IU/L (35-105) Total Protein 6.2 g/dL L g/dL (6.6-8.7) Albumin 3.8 g/dL g/dL (3.5-5.2) Globulin 2.4 g/dL g/dL (1.3-4.6) Lipase 13 U/L U/L (13-60) Urine Color Urine Appearance Urine pH Ur Specific Gravit y Urine Protein Urine Glucose (UA) Urine Ketones Urine Blood Urine Nitrate Urine Bilirubin Urine Urobilinogen Ur Leukocyte Sandy ase Urine HCG, Qual Salicylates < 0.3 mg/dL L mg/ dL (3-10) Urine Opiates Scre en Acetaminophen < 5.0 ug/mL L ug/ mL (10-30) Ur Barbiturates Sc reen Ur Phencyclidine S crn Ur Amphetamines Sc reen U Benzodiazepines Scrn Urine Cocaine Scre en U Marijuana (THC) Screen Discharge Plan Discharge Patient Disposition: Home Clinical Impression: Depression Condition: Stable Prescriptions: No Action ondansetron HCl 8 mg tablet 8 mg PO Q8H PRN (Reason: Nausea) Qty: 6 RF: 0 pantoprazole [Protonix] 40 mg Tablet,Delayed Release (Dr/Ec) 40 mg PO BID RF: 0 docusate sodium [Colace] 100 mg Capsule See Rx Instructions .ROUTE .COMPLEX RF: 0 lactulose 10 gram/15 mL solution 15 ml PO DAILY RF: 0 buspirone 5 mg tablet 5 mg PO TID RF: 0 levetiracetam [Keppra] 500 mg tablet 500 mg PO BID RF: 0 rizatriptan [Maxalt] 10 mg Tablet 10 mg PO PRN RF: 0 baclofen 10 mg tablet 10 mg PO QID PRN (Reason: Muscle Spasm) RF: 0 diphenhydramine HCl [Benadryl] 25 mg Capsule 50 mg PO Q4H PRN (Reason: Allergy Symptoms) RF: 0 levothyroxine 150 mcg tablet 150 mcg PO DAILY RF: 0 gabapentin 100 mg capsule 300 mg PO BID RF: 0 prazosin 2 mg Capsule 2 mg PO BEDTIME RF: 0 quetiapine [Seroquel] 300 mg tablet 450 mg PO BEDTIME RF: 0 ibuprofen 800 mg tablet 800 mg PO TID PRN (Reason: Pain) RF: 0 hydromorphone 8 mg tablet 8 mg PO BID PRN (Reason: Pain) RF: 0 hydroxyzine HCl 50 mg tablet 50 mg PO BID PRN (Reason: Anxiety) RF: 0 morphine 30 mg tablet extended release 30 mg PO BID PRN (Reason: Pain) RF: 0 Vitamin Plus Low Iron 27 mg iron- 1 mg tablet 1 tab PO DAILY RF: 0 levothyroxine 100 mcg Tablet 100 mcg PO DAILY RF: 0 Fetzima 80 mg Capsule,Extended Release 24 Hr 80 mg PO DAILY RF: 0 Discharge Orders: Discharge ED (Routine); Ordered 04/12/21 Ordered By: Elodia Tomlin Referrals: Brie Everett DO [Primary Care Provider] - Discharge Diet: Advance as tolerated Discharge Activity: Resume usual activity Patient Instructions: Depression (ED) Activity Restrictions/Additional Instructions: Please come back to the emergency room if you need help, have any hallu cinations, or you have any depression or have thoughts about hurting yourself or other people. Coding Level of Care Code ED Ep Specialist for [place]
[2021-04-12 22:55] VITALS: BP 146/84; PULSE 88; RESP 18; O2SAT 99
[2021-04-13 01:26] LABS: Add Urine Microscopic? NO; Charge for UA Resulting for Rev
[2021-04-13 01:38] LABS: Bilirubin Urine Neg (Negative); Blood Urine Neg (Negative); Glucose Urine UA Norm (Normal); Ketones Urine Negative (Negative); Leukocyte Esterase Urine Negative (Negative); Nitrate Urine Negative (Negative); Protein Urine Neg (Negative); Urine Appearance Clear (CLEAR); Urine Color Yellow (Yellow); Urobilinogen Urine Norm (Negative); pH Urine 7 (5-7)
[2021-04-13 01:47] LABS: Amphetamines Screen Urine Negative (Negative); Barbiturates Screen Urine Negative (Negative); Benzodiazepines Screen Urine Negative (Negative); Cocaine Screen Urine Negative (Negative); Opiate Screen Urine Positive (Negative); PCP Screen Urine Negative (Negative); THC Screen Urine Negative (Negative)
== END 2021-04-12 22:45 | disposition home or self-care (01) ==
PROVIDERS: Emergency Provider Emergency Medicine; PCP Family Medicine
DX: F32.A Depression, unspecified (principal)
CPT/HCPCS: 80053; 80306; 80307; 81003; 81025; 83690; 85025; 99283; Q0162

== ENCOUNTER 2021-04-13 06:06 | Inpatient (IN) | payer BC, SELFPAY ==
[2021-04-13 06:11] VITALS: BP 151/90; PULSE 118; RESP 18; TEMP 36.7; O2SAT 98; BMI 30.9
--- NOTE | 2021-04-13 06:50 | ED_ITS ---
HPI - Psych General: Chief Complaint: Psychiatric Symptoms Stated Complaint: si Time Seen by Provider: 04/13/21 06:15 History of Present Illness: HPI Narrative: 46-year-old female returns to the emergency room. She was seen overnight expressing severe anxiety and wanting admitted. She was evaluated by Dr. mSith and discharged home. He did not feel that she required inpatient treatment. She remained in the waiting room all evening. She told the security staff she had overheard Dr. Smith saying he would have a bed for 1 male and 1 female in the morning and she wanted to be admitted to 1 of those beds. She checked and again this morning she is now stating that she is suicidal because she had to wait in the waiting room all night. She states she plans to take all of her pills with the intent to harm herself. She has not advanced on her plan at all. She is tearful when seen. She has been in the waiting room all evening. Labs are reviewed from her earlier visit. MD complaint: suicidal ideation and feels depressed Onset (ago): day(s) Duration: intermittent Relieving factors: none Exacerbating factors: none Associated psychiatric symptoms: depression and suicidal ideation Treatments prior to arrival: none If self harm: admits thoughts of self harm and has plan Review of Systems Const: Denies: fever(s), chills, body aches, change in appetite, fatigue or malaise ENMT: Denies: throat pain, ear or mastoid pain, nasal discharge or nasal congestion Card: Denies: chest pain, edema, dyspnea on exertion or orthopnea Resp: Denies: dyspnea, productive cough or non-productive cough GI: Denies: abdominal pain, nausea, vomiting, hematemesis, coffee ground emesis, diarrhea, constipation, bloating, hematochezia or melena : Denies: flank pain, difficulty voiding, dysuria, urinary frequency or urinary urgency Skin/Breast: Denies: rash or pruritus PFSH ED PFSH: Medical History Anemia -Has chronic iron deficiency anemia, baseline hemoglobin appears to be around 9 -LMP-01/24 -Continue to monitor H&H closely; transfused 1 unit of PRBCs (02/08), anticipate need for additional blood products Anxiety Arthritis Back disorder Bilateral renal stones Bipolar disorder Chronic back pain Depression History of nephrolithiasis Hypokalemia -Replacement ongoing, continue to monitor levels Physical deconditioning Seizures UTI (urinary tract infection) Surgical History H/O cervical spine surgery H/O knee surgery H/O shoulder surgery History of thyroid surgery Family History Mother Cancer Breast cancer Father Arthritis Social History Smoking and tobacco status: never smoked Alcohol intake: never Household members: spouse Marital status: Number of children: 1 Female Reproductive History: Date of last menstrual period: 07/30/20 Physical Exam Const: COMMON NORMALS: no acute distress GENERAL APPEARANCE: cooperative and comfortable ORIENTATION/CONSCIOUSNESS: Yes awake, Yes oriented to person, Yes oriented to place and Yes oriented to time HENMT: COMMON NORMALS: normocephalic, atraumatic and hearing grossly normal bilaterally HEAD & SCALP: normocephalic and atraumatic Resp: COMMON NORMALS: normal respiratory effort, No retractions, No use of accessory muscles and clear to auscultation bilaterally AUSCULTATION: clear to auscultation bilaterally Cardio: COMMON NORMALS: regular rate, regular rhythm and No murmurs present (Cardio) RATE: regular rate RHYTHM: regular rhythm GI: COMMON NORMALS: Soft to palpation and No hepatosplenomegaly present AUSCULTATION: Yes normoactive bowel sounds PALPATION: Yes Soft to palpation, No Tenderness to palpation present (GI), No Guarding due to palpation present (GI) and Yes No hepatosplenomegaly present Extremity: COMMON NORMALS: normal to inspection, capillary refill normal, no clubbing, cyanosis or edema, no calf tenderness and no pedal edema Neuro: SENSORIUM/ORIENTATION: Yes oriented to person, Yes oriented to place and Yes oriented to time Skin: COMMON NORMALS: no rashes or lesions noted GENERAL SKIN EXAM: no rashes or lesions noted Course Vital Signs: Vital signs: Vital Signs Temperature 98.1 F 04/13/21 06:11 Pulse Rate 118 H 04/13/21 06:11 Respiratory Rate 18 04/13/21 06:11 Blood Pressure 151/90 04/13/21 06:11 Pulse Oximetry 98 04/13/21 06:11 MDM - Psych MDM Narrative: Medical decision making narrative: Work not repeated as it was just recently done within the last [address] Smith he is agreeable to admit the patient for suicidal ideation orders. Discharge Plan Discharge Patient Disposition: Admitted As Inpatient Clinical Impression: Suicidal ideation Condition: Stable Prescriptions: No Action ondansetron HCl 8 mg tablet 8 mg PO Q8H PRN (Reason: Nausea) Qty: 6 RF: 0 pantoprazole [Protonix] 40 mg Tablet,Delayed Release (Dr/Ec) 40 mg PO BID RF: 0 docusate sodium [Colace] 100 mg Capsule See Rx Instructions .ROUTE .COMPLEX RF: 0 lactulose 10 gram/15 mL solution 15 ml PO DAILY RF: 0 buspirone 5 mg tablet 5 mg PO TID RF: 0 levetiracetam [Keppra] 500 mg tablet 500 mg PO BID RF: 0 rizatriptan [Maxalt] 10 mg Tablet 10 mg PO PRN RF: 0 baclofen 10 mg tablet 10 mg PO QID PRN (Reason: Muscle Spasm) RF: 0 diphenhydramine HCl [Benadryl] 25 mg Capsule 50 mg PO Q4H PRN (Reason: Allergy Symptoms) RF: 0 levothyroxine 150 mcg tablet 150 mcg PO DAILY RF: 0 gabapentin 100 mg capsule 300 mg PO BID RF: 0 prazosin 2 mg Capsule 2 mg PO BEDTIME RF: 0 quetiapine [Seroquel] 300 mg tablet 450 mg PO BEDTIME RF: 0 ibuprofen 800 mg tablet 800 mg PO TID PRN (Reason: Pain) RF: 0 hydromorphone 8 mg tablet 8 mg PO BID PRN (Reason: Pain) RF: 0 hydroxyzine HCl 50 mg tablet 50 mg PO BID PRN (Reason: Anxiety) RF: 0 morphine 30 mg tablet extended release 30 mg PO BID PRN (Reason: Pain) RF: 0 Vitamin Plus Low Iron 27 mg iron- 1 mg tablet 1 tab PO DAILY RF: 0 levothyroxine 100 mcg Tablet 100 mcg PO DAILY RF: 0 [place] 80 mg Capsule,Extended Release 24 Hr 80 mg PO DAILY RF: 0 Referrals: Brie Everett DO [Primary Care Provider] - Coding Level of Care Code ED Director Operating for Chg Fwd Exam Detailed
[2021-04-13 09:00] VITALS: BP 112/72; PULSE 97; RESP 15; O2SAT 95
[2021-04-13] MEDS: cetirizine 10 mg Tablet PO (14:17)
[2021-04-13] MEDS: BuSPIRONE 10 mg Tablet 5 MG PO (20:07)
[2021-04-13] MEDS: prazosin 1 mg Capsule 2 MG PO (20:07)
[2021-04-13] MEDS: ondansetron 4 MG Tablet 8 MG PO (20:07)
[2021-04-13] MEDS: diphenhydrAMINE 25 mg Capsule 50 MG PO (20:08)
[2021-04-13] MEDS: quetiapine 300 mg Tablet 450 MG PO (20:09)
[2021-04-13] MEDS: ibuprofen 800 mg tablet PO (20:16)
[2021-04-13 20:54] VITALS: BP 141/95; PULSE 87; RESP 18; TEMP 36.7; O2SAT 97
[2021-04-13] MEDS: levETIRAcetam 500 mg Tablet PO (21:01)
--- NOTE | 2021-04-14 03:02 | PC.NURSE ---
PRN minipress, seroquel, benadryl, ibuprofen, and zofran given for pain, and anxiety. Patient tolerated well. Will continue to monitor.
[2021-04-14] MEDS: diphenhydrAMINE 25 mg Capsule 50 MG PO ×4 (04:39→21:31)
[2021-04-14] MEDS: ibuprofen 800 mg tablet PO ×2 (04:39→15:52)
[2021-04-14 06:00] VITALS: BP 134/93; PULSE 108; RESP 18; TEMP 36.7; O2SAT 98
[2021-04-14] MEDS: ondansetron 4 MG Tablet 8 MG PO ×2 (06:15→14:36)
[2021-04-14] MEDS: levothyroxine 150 mcg Tablet PO (06:34)
[2021-04-14] MEDS: levothyroxine 100 mcg Tablet PO (06:34)
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
[2021-04-14] MEDS: BuSPIRONE 10 mg Tablet 5 MG PO ×3 (09:21→21:31)
[2021-04-14] MEDS: baclofen 10 mg Tablet PO ×2 (09:25→17:35)
[2021-04-14] MEDS: pantoprazole DR 40 mg Tablet PO ×2 (09:26→17:36)
[2021-04-14] MEDS: levETIRAcetam 500 mg Tablet PO ×2 (09:26→17:36)
[2021-04-14] MEDS: gabapentin 300 mg Capsule PO ×2 (09:26→17:36)
[2021-04-14] MEDS: hyDROXYzine 25 mg Capsule 50 MG PO (09:35)
[2021-04-14 14:00] VITALS: BP 121/79; PULSE 80; RESP 18; TEMP 36.9; O2SAT 97
--- NOTE | 2021-04-14 15:42 | PC.NURSE ---
Patient presents diaphoretic, P 104, reporting nausea, headache, mild tremors. Dose of opiates was given 1 hour ago, patient requesting Benadryl and Ibuprofen, will continue to monitor and assess for symptoms of opiate withdrawal.
[2021-04-14 21:23] VITALS: BP 150/100; PULSE 74; RESP 15; TEMP 36.7; O2SAT 99
[2021-04-14] MEDS: prazosin 1 mg Capsule 2 MG PO (21:32)
[2021-04-14] MEDS: quetiapine 300 mg Tablet 450 MG PO (21:32)
--- NOTE | 2021-04-14 21:33 | PC.NURSE ---
charge nurse, selin, notified of latonya/p/umesh
[2021-04-15] MEDS: baclofen 10 mg Tablet PO ×4 (01:45→21:22)
--- NOTE | 2021-04-15 01:46 | PC.NURSE ---
pt requested baclofen as well as her scheduled morphine. med given per request.
[2021-04-15] MEDS: diphenhydrAMINE 25 mg Capsule 50 MG PO ×5 (02:27→23:56)
[2021-04-15] MEDS: ibuprofen 800 mg tablet PO ×3 (02:29→23:53)
--- NOTE | 2021-04-15 02:32 | PC.NURSE ---
pt came to desk requesting her benadryl and motrin.
[2021-04-15 06:00] VITALS: BP 128/78; PULSE 90; RESP 17; TEMP 37.2; O2SAT 98
[2021-04-15] MEDS: levothyroxine 100 mcg Tablet PO (06:32)
[2021-04-15] MEDS: levothyroxine 150 mcg Tablet PO (06:32)
[2021-04-15] MEDS: BuSPIRONE 10 mg Tablet 5 MG PO ×3 (08:05→21:21)
[2021-04-15] MEDS: gabapentin 300 mg Capsule PO ×2 (08:05→21:20)
[2021-04-15] MEDS: levETIRAcetam 500 mg Tablet PO ×2 (08:05→21:20)
[2021-04-15] MEDS: pantoprazole DR 40 mg Tablet PO ×2 (08:05→21:22)
--- NOTE | 2021-04-15 08:06 | PC.NURSE ---
PRN BACLOFEN 10 MG GIVEN PO PER PT C/O BACK SPASMS. WILL CONT TO MONITOR
[2021-04-15] MEDS: hyDROXYzine 25 mg Capsule 50 MG PO ×2 (08:39→21:29)
--- NOTE | 2021-04-15 08:39 | PC.NURSE ---
PRN VISTARIL 50 MG GIVEN PO PER PT C/O STATED ANXIETY
[2021-04-15] MEDS: ondansetron 4 MG Tablet 8 MG PO (09:30)
--- NOTE | 2021-04-15 09:30 | PC.NURSE ---
PRN ZOFRAN 8 MG GIVEN PO PER PT C/O STATED NAUSEA. SOMATIC COMPLAINTS, ASKING FOR ANY AND ALL PRN MEDICATIONS SHE CAN HAVE CONSTANTLY. WILL CONT TO MONITOR
--- NOTE | 2021-04-15 10:54 | PC.NURSE ---
PRN BENADRYL 50 MG GIVEN PO PER PT REQUEST, CONT TO HAVE SOMATIC C/O ANY AND ALL SYMPTOMS.
[2021-04-15 14:00] VITALS: BP 131/92; PULSE 88; RESP 18; TEMP 36.8; O2SAT 99
--- NOTE | 2021-04-15 14:11 | NPU.GN ---
[facility] Topic:Depression BINGO General Mood of Group: General mood was talkative. Seemed like most everyone in the group was talkative. This group was exceptionable large. They seemed to all want to speak at the same time. This patient came to group on time and dressed appropriate with good hygiene. This patient did participate and did ask questions. She did speak a lot about her current physical illnesses. She stated that she has seizures and a heart condition.
--- NOTE | 2021-04-15 15:27 | PC.NURSE ---
PRN BACLOFEN 10 MG GIVEN PO PER PT C/O SPASMS
--- NOTE | 2021-04-15 17:28 | PM.NPN ---
Subjective NPU Subjective: Interval history: Mishel presents today reporting that she is realizing that she is not doing as well as she lets on that she is doing. She reports that she is identifying that the opiates are a bigger problem than she wants to give him credit for and endorses a readiness and willingness to go to an inpatient rehab or some ongoing recovery based treatment. She reports an openness to these options feeling like if she does use of the visits like it. We discussed some limitations and try to get people into services like that. Mental Status Exam MSE Comments: This is an overweight, white female, looking older than her stated age, with limited grooming, and adequate eye contact. No abnormal movements except for psychomotor retardation. Cooperative with exam in mild distress. Speech was decreased rate and volume. Mood described as anxious and sad; affect congruent. Thought process, organized. Thought content: patient denied any suicidal or homicidal ideation, there were no delusions reported or noted, patient denied any auditory or visual hallucinations. Attention, concentration, and memory appear intact but were not formally tested. She is alert and oriented times three. Insight and judgment are limited, impulse control limited. Vitals/I&O/Wt Last Vital Signs Temp 98.2 F 04/15/21 14:00 Pulse 88 04/15/21 14:00 Resp 18 04/15/21 14:00 BP 131/92 04/15/21 14:00 Pulse Ox 99 04/15/21 14:00 Weight last 48 hrs Weight 81.647 kg A&P Additional A&P Information (1) Depression: (2) PTSD (post-traumatic stress disorder): (3) Suicidal ideation: (4) Polypharmacy: (5) Chronic back pain: Additional A&P Information This is a 46-year-old, white female, with post-traumatic stress disorder, question of opioid use disorder, and significant psychosocial stressors, who presents reporting lethality in relation to her most recent challenge of conflict with her . RECOMMENDATION AND PLAN: 1. Continue current medication. 2. Encourage individual, group, and milieu therapy. 3. Continue q-15 minute checks for safety. 4. Encourage sober living treatment after discharge, at the highest level of care, to which she is willing to commit. 5. Work with treatment team to look at reasonable options for discharge for short therapeutic stay. Involuntary Hold Information 96 Hour Hold: 96 Hour Involuntary Admission: No Attestations NPU Medical Necessity Statement*: Inpatient hospitalization is medically necessary and the clinically appropriate intervention, at this time. We will monitor medications and make changes as indicated. Patient will be in the hospital for 1-3 days. Coding Level of Care Code Acute Heat Engineering Teacher for [facility]
--- NOTE | 2021-04-15 17:45 | PC.NURSE ---
PRN BENADRYL 50 MG GIVEN PO PER PT REQUEST
[2021-04-15 21:04] VITALS: BP 140/88; PULSE 76; RESP 15; TEMP 37; O2SAT 98
[2021-04-15] MEDS: prazosin 1 mg Capsule 2 MG PO (21:20)
[2021-04-15] MEDS: quetiapine 300 mg Tablet 450 MG PO (21:21)
[2021-04-16] MEDS: baclofen 10 mg Tablet PO ×3 (03:26→21:50)
[2021-04-16 06:00] VITALS: BP 136/86; PULSE 75; TEMP 37.1; O2SAT 93
[2021-04-16] MEDS: levothyroxine 150 mcg Tablet PO (06:53)
[2021-04-16] MEDS: levothyroxine 100 mcg Tablet PO (06:53)
[2021-04-16] MEDS: diphenhydrAMINE 25 mg Capsule 50 MG PO ×2 (06:53→21:50)
[2021-04-16] MEDS: hyDROXYzine 25 mg Capsule 50 MG PO (08:27)
[2021-04-16] MEDS: ibuprofen 800 mg tablet PO ×2 (08:28→17:32)
[2021-04-16] MEDS: gabapentin 300 mg Capsule PO ×2 (08:29→21:50)
[2021-04-16] MEDS: BuSPIRONE 10 mg Tablet 5 MG PO ×3 (08:29→21:52)
[2021-04-16] MEDS: pantoprazole DR 40 mg Tablet PO ×2 (08:29→21:51)
[2021-04-16] MEDS: levETIRAcetam 500 mg Tablet PO ×2 (08:30→21:52)
--- NOTE | 2021-04-16 08:30 | PC.NURSE ---
PRN VISTARIL 50 MG GIVEN PO PER PT C/O STATED ANXIETY
--- NOTE | 2021-04-16 10:13 | PC.NURSE ---
PRN BACLOFEN 10 MG GIVEN PO PER PT C/O SPASMS
--- NOTE | 2021-04-16 10:52 | NPU.GN ---
[facility] Topic:Sail Boat/ Mechanisms General Mood of Group: Mishel attended group today and participated. She left group a few times, but did complete the activity.
--- NOTE | 2021-04-16 12:41 | PM.NPN ---
Subjective NPU Subjective: Interval history: Patient presents today reporting that she is invested in the plan for getting her to a detox and rehab. She continues to show improvement over her presentation. We discussed the fact that we needed to consider the possibility of her not having somewhere to go and the fact that she would not be able to stay here indefinitely with a clear bathroom a direct admission from the hospital to the rehab in short order. We discussed the risk benefits and alternatives of restarting her Fetzima and she understood agreed to proceed as documented in his note. Mental Status Exam MSE Comments: This is an overweight, white female, looking older than her stated age, with limited grooming, and adequate eye contact. No abnormal movements except for psychomotor retardation. Cooperative with exam in mild distress. Speech was decreased rate and volume. Mood described as still a little down; affect congruent. Thought process, organized. Thought content: patient denied any suicidal or homicidal ideation, there were no delusions reported or noted, patient denied any auditory or visual hallucinations. Attention, concentration, and memory appear intact but were not formally tested. She is alert and oriented times three. Insight and judgment are limited, impulse control limited. Vitals/I&O/Wt Last Vital Signs Temp 98.7 F 04/16/21 06:00 Pulse 75 04/16/21 06:00 Resp 15 04/15/21 21:04 BP 136/86 04/16/21 06:00 Pulse Ox 93 04/16/21 06:00 A&P Additional A&P Information (1) Depression: (2) PTSD (post-traumatic stress disorder): (3) Suicidal ideation: (4) Polypharmacy: (5) Chronic back pain: Additional A&P Information This is a 46-year-old, white female, with post-traumatic stress disorder, question of opioid use disorder, and significant psychosocial stressors, who presents reporting lethality in relation to her most recent challenge of conflict with her . RECOMMENDATION AND PLAN: 1. Continue current medication. Restart Fetzima 80 mg p.o. every morning. 2. Encourage individual, group, and milieu therapy. 3. Continue q-15 minute checks for safety. 4. Encourage sober living treatment after discharge, at the highest level of care, to which she is willing to commit. 5. Work with treatment team to look at reasonable options for discharge for short therapeutic stay. Involuntary Hold Information 96 Hour Hold: 96 Hour Involuntary Admission: No Attestations NPU Medical Necessity Statement*: Inpatient hospitalization is medically necessary and the clinically appropriate intervention, at this time. We will monitor medications and make changes as indicated. Patient will be in the hospital for 1-3 days. Coding Level of Care Code Acute Automatic Driller And Reamer for [facility]
[2021-04-16 14:00] VITALS: BP 134/95; PULSE 89; RESP 17; TEMP 36.6; O2SAT 99
[2021-04-16] MEDS: prazosin 1 mg Capsule 2 MG PO (21:51)
[2021-04-16] MEDS: quetiapine 300 mg Tablet 450 MG PO (21:51)
[2021-04-16 22:00] VITALS: BP 121/79; PULSE 75; RESP 17; TEMP 36.8; O2SAT 98
[2021-04-17] MEDS: baclofen 10 mg Tablet PO ×3 (03:20→15:58)
[2021-04-17 06:00] VITALS: BP 142/98; PULSE 107; RESP 18; TEMP 37.1; O2SAT 97
[2021-04-17] MEDS: ibuprofen 800 mg tablet PO ×2 (06:21→15:58)
[2021-04-17] MEDS: levothyroxine 150 mcg Tablet PO (06:22)
[2021-04-17] MEDS: levothyroxine 100 mcg Tablet PO (06:22)
[2021-04-17] MEDS: pantoprazole DR 40 mg Tablet PO ×2 (08:03→21:50)
[2021-04-17] MEDS: BuSPIRONE 10 mg Tablet 5 MG PO ×3 (08:03→21:04)
[2021-04-17] MEDS: gabapentin 300 mg Capsule PO ×2 (08:03→21:03)
[2021-04-17] MEDS: levETIRAcetam 500 mg Tablet PO ×2 (08:03→21:04)
[2021-04-17] MEDS: hyDROXYzine 25 mg Capsule 50 MG PO ×2 (08:03→21:11)
[2021-04-17] MEDS: ondansetron 4 MG Tablet 8 MG PO ×2 (11:43→16:49)
[2021-04-17] MEDS: diphenhydrAMINE 25 mg Capsule 50 MG PO ×2 (11:43→16:49)
--- NOTE | 2021-04-17 12:57 | P.PN_ITS ---
Subjective NPU Subjective: Interval history: Patient presents today reporting that she is feeling better since her Fetzima has been restarted. We discussed the challenge of finding a place for her treatment and plan to review her medications to maybe start tapering her opiates. This made her anxious but she also understands that this is a process that she is about to go through either way. She reports she is eating better and sleeping better. Mental Status Exam MSE Comments: This is an overweight, white female, looking older than her stated age, with limited grooming, and adequate eye contact. No abnormal movements except for psychomotor retardation. Cooperative with exam in mild distress. Speech was decreased rate and volume. Mood described as a little better; affect congruent. Thought process, organized. Thought content: patient denied any suicidal or homicidal ideation, there were no delusions reported or noted, patient denied any auditory or visual hallucinations. Attention, speedy ntration, and memory appear intact but were not formally tested. She is alert and oriented times three. Insight and judgment are limited, but improving, impulse control limited. Vitals/I&O/Wt Last Vital Signs Temp 98.1 F 04/17/21 19:59 Pulse 81 04/17/21 19:59 Resp 17 04/17/21 19:59 BP 127/88 04/17/21 19:59 Pulse Ox 99 04/17/21 19:59 A&P Additional A&P Information (1) Depression: (2) PTSD (post-traumatic stress disorder): (3) Suicidal ideation: (4) Polypharmacy: (5) Chronic back pain: Additional A&P Information This is a 46-year-old, white female, with post-traumatic stress disorder, question of opioid use disorder, and significant psychosocial stressors, who presents reporting lethality in relation to her most recent challenge of conflict with her . RECOMMENDATION AND PLAN: 1. Continue current medication. 2. Encourage individual, group, and milieu therapy. 3. Continue q-15 minute checks for safety. 4. Encourage sober living treatment after discharge, at the highest level of care, to which she is willing to commit. 5. Work with treatment team to look at reasonable options for discharge. Involuntary Hold Information 96 Hour Hold: 96 Hour Involuntary Admission: No Attestations NPU Medical Necessity Statement*: Inpatient hospitalization is medically necessary and the clinically appropriate intervention, at this time. We will monitor medications and make changes as indicated. Patient will be in the hospital for 1-3 days. Coding Level of Care Code Acute Plater Supervisor for [facility]
--- NOTE | 2021-04-17 13:32 | NPU.GN ---
[facility] Topic:Anxiety Bingo General Mood of Group: Mishel did not attend group today.
[2021-04-17 14:00] VITALS: BP 109/78; PULSE 89; RESP 18; TEMP 36; O2SAT 98
[2021-04-17 19:59] VITALS: BP 127/88; PULSE 81; RESP 17; TEMP 36.7; O2SAT 99
[2021-04-17] MEDS: quetiapine 300 mg Tablet 450 MG PO (21:02)
[2021-04-17] MEDS: prazosin 1 mg Capsule 2 MG PO (21:04)
[2021-04-18] MEDS: diphenhydrAMINE 25 mg Capsule 50 MG PO ×2 (02:28→06:57)
[2021-04-18 06:00] VITALS: BP 127/88; PULSE 85; RESP 17; TEMP 37; O2SAT 96
[2021-04-18] MEDS: baclofen 10 mg Tablet PO ×2 (06:57→17:36)
[2021-04-18] MEDS: levothyroxine 100 mcg Tablet PO (06:57)
[2021-04-18] MEDS: levothyroxine 150 mcg Tablet PO (06:57)
[2021-04-18] MEDS: ondansetron 4 MG Tablet 8 MG PO (08:50)
[2021-04-18] MEDS: gabapentin 300 mg Capsule PO ×2 (08:51→21:04)
[2021-04-18] MEDS: BuSPIRONE 10 mg Tablet 5 MG PO ×3 (08:51→20:57)
[2021-04-18] MEDS: pantoprazole DR 40 mg Tablet PO ×2 (08:51→21:04)
[2021-04-18] MEDS: levETIRAcetam 500 mg Tablet PO ×2 (08:52→23:29)
--- NOTE | 2021-04-18 08:52 | PC.NURSE ---
[PRN ZOFRAN 8 MG GIVEN PO PER PT C/O STATED NAUSEA
--- NOTE | 2021-04-18 12:02 | NPU.GN ---
[facility] Topic:Anger General Mood of Group: Mishel did not attend group today.
[2021-04-18] MEDS: ibuprofen 800 mg tablet PO (12:25)
[2021-04-18] MEDS: hyDROXYzine 25 mg Capsule 50 MG PO ×2 (12:26→21:00)
--- NOTE | 2021-04-18 12:27 | PC.NURSE ---
PRN VISTARIL 50 MG GIVEN PO PER PT C/O STATED ANXIETY. WILL CONT TO MONITOR
[2021-04-18 13:37] VITALS: BP 128/90; PULSE 94; RESP 18; TEMP 36.4; O2SAT 97
--- NOTE | 2021-04-18 13:44 | PM.NPN ---
Subjective NPU Subjective: Interval history: Patient presents today reporting that she is doing better now that the Fetzima has been on board. She feels confident that if we can find a rehab she will be fine with that as well. We discussed the challenge that we have and that we are not finding a rehab bed is available and would not just be able to hold her indefinitely until 1 came available/free. We discussed the possibility of looking at alternatives like shelters that could be managed until something did come available. She was not excited about that idea. Mental Status Exam MSE Comments: This is an overweight, white female, looking older than her stated age, with limited grooming, and adequate eye contact. No abnormal movements except for psychomotor retardation. Cooperative with exam in no acute distress. Speech was decreased rate and volume. Mood described as a little better; affect congruent. Thought process, organized. Thought content: patient denied any suicidal or homicidal ideation, there were no delusions reported or noted, patient denied any auditory or visual hallucinations. Attention, concentration, and memory appear intact but were not formally tested. She is alert and oriented times three. Insight and judgment are limited, but improving, impulse control limited. Vitals/I&O/Wt Last Vital Signs Temp 98.6 F 04/18/21 06:00 Pulse 85 04/18/21 06:00 Resp 17 04/18/21 06:00 BP 127/88 04/18/21 06:00 Pulse Ox 96 04/18/21 06:00 A&P Additional A&P Information (1) Depression: (2) PTSD (post-traumatic stress disorder): (3) Suicidal ideation: (4) Polypharmacy: (5) Chronic back pain: Additional A&P Information This is a 46-year-old, white female, with post-traumatic stress disorder, question of opioid use disorder, and significant psychosocial stressors, who presents reporting lethality in relation to her most recent challenge of conflict with her . RECOMMENDATION AND PLAN: 1. Continue current medication. 2. Encourage individual, group, and milieu therapy. 3. Continue q-15 minute checks for safety. 4. Encourage sober living treatment after discharge, at the highest level of care, to which she is willing to commit. 5. Work with treatment team to look at reasonable options for discharge. Involuntary Hold Information 96 Hour Hold: 96 Hour Involuntary Admission: No Attestations NPU Medical Necessity Statement*: Inpatient hospitalization is medically necessary and the clinically appropriate intervention, at this time. We will monitor medications and make changes as indicated. Patient will be in the hospital for 1-3 days. Coding Level of Care Code Acute Screen Printing Machine Operator Helper for [facility]
--- NOTE | 2021-04-18 17:41 | PC.NURSE ---
PRN BACLOFEN 10 MG GIVEN PO PER PT C/O SPASMS
[2021-04-18] MEDS: quetiapine 300 mg Tablet 450 MG PO (20:54)
[2021-04-18] MEDS: prazosin 1 mg Capsule 2 MG PO (20:54)
[2021-04-18 21:32] VITALS: BP 128/90; PULSE 94; RESP 18; TEMP 36.7; O2SAT 97
[2021-04-19] MEDS: levothyroxine 100 mcg Tablet PO (05:10)
[2021-04-19] MEDS: levothyroxine 150 mcg Tablet PO (05:10)
[2021-04-19 06:00] VITALS: BP 131/84; PULSE 98; RESP 18; TEMP 36.6; O2SAT 99
[2021-04-19] MEDS: ibuprofen 800 mg tablet PO ×2 (08:19→14:48)
[2021-04-19] MEDS: hyDROXYzine 25 mg Capsule 50 MG PO ×2 (08:20→18:35)
[2021-04-19] MEDS: BuSPIRONE 10 mg Tablet 5 MG PO ×3 (08:20→21:10)
[2021-04-19] MEDS: baclofen 10 mg Tablet PO ×3 (08:20→15:48)
[2021-04-19] MEDS: gabapentin 300 mg Capsule PO ×2 (08:20→21:11)
[2021-04-19] MEDS: levETIRAcetam 500 mg Tablet PO ×2 (08:20→21:10)
[2021-04-19] MEDS: pantoprazole DR 40 mg Tablet PO ×2 (08:20→21:11)
--- NOTE | 2021-04-19 11:46 | P.PN_ITS ---
Subjective NPU Subjective: Interval history: 20Patient presents today reporting that she is desperate to get to a rehab and detox. She reports that she were to be discharged without some kind of plan that she would take her pills and kill self. We discussed the current state of affairs and rehabs with a long delays. And limited capacity for inpatient facility to ensure a person can go from the inpatient setting to the rehab. She did endorse being possibly open to going to a long term or some interim placement will allow her to be safe. Mental Status Exam MSE Comments: This is an overweight, white female, looking older than her stated age, with limited grooming, and adequate eye contact. No abnormal movements except for psychomotor retardation. Cooperative with exam in no acute distress. Speech was decreased rate and volume. Mood described as frustrated that we have not found anything; affect congruent, and tearful. Thought process, organized. Thought content: patient denied any suicidal or homicidal ideation, there were no delusions reported or noted, patient denied any auditory or visual hallucinations. Attention, concentration, and memory appear intact but were not formally tested. She is alert and oriented times three. Insight and judgment are limited, but improving, impulse control limited. Vitals/I&O/Wt Last Vital Signs Temp 97.9 F 04/19/21 06:00 Pulse 98 04/19/21 06:00 Resp 18 04/19/21 06:00 BP 131/84 04/19/21 06:00 Pulse Ox 99 04/19/21 06:00 A&P Additional A&P Information (1) Depression: (2) PTSD (post-traumatic stress disorder): (3) Suicidal ideation: (4) Polypharmacy: (5) Chronic back pain: Additional A&P Information This is a 46-year-old, white female, with post-traumatic stress disorder, question of opioid use disorder, and significant psychosocial stressors, who presents reporting lethality in relation to her most recent challenge of conflict with her . RECOMMENDATION AND PLAN: 1. Continue current medication. 2. Encourage individual, group, and milieu therapy. 3. Continue q-15 minute checks for safety. 4. Encourage sober living treatment after discharge, at the highest level of care, to which she is willing to commit. 5. Work with treatment team to look at reasonable options for discharge. Involuntary Hold Information 96 Hour Hold: 96 Hour Involuntary Admission: No Attestations NPU Medical Necessity Statement*: Inpatient hospitalization is medically necessary and the clinically appropriate intervention, at this time. We will monitor medications and make changes as indicated. Patient will be in the hospital for 1-3 days. Coding Level of Care Code Acute Patternmaker Apprentice Wood for [facility]
[2021-04-19 13:37] VITALS: BP 114/79; PULSE 92; RESP 17; TEMP 36.4; O2SAT 98
[2021-04-19 20:41] VITALS: BP 122/89; PULSE 76; RESP 16; TEMP 36.6; O2SAT 95
[2021-04-19] MEDS: quetiapine 300 mg Tablet 450 MG PO (21:05)
[2021-04-19] MEDS: prazosin 1 mg Capsule 2 MG PO (21:07)
[2021-04-19] MEDS: diphenhydrAMINE 25 mg Capsule 50 MG PO (21:14)
[2021-04-19] MEDS: ondansetron 4 MG Tablet 8 MG PO (21:39)
[2021-04-20] MEDS: levothyroxine 150 mcg Tablet PO (05:29)
[2021-04-20] MEDS: levothyroxine 100 mcg Tablet PO (05:29)
[2021-04-20] MEDS: ibuprofen 800 mg tablet PO ×2 (05:45→12:35)
[2021-04-20] MEDS: baclofen 10 mg Tablet PO ×3 (05:45→17:18)
[2021-04-20 06:00] VITALS: BP 122/89; PULSE 76; RESP 16; TEMP 36.6; O2SAT 95
[2021-04-20] MEDS: BuSPIRONE 10 mg Tablet 5 MG PO ×3 (08:51→20:55)
[2021-04-20] MEDS: pantoprazole DR 40 mg Tablet PO ×2 (08:51→23:33)
[2021-04-20] MEDS: levETIRAcetam 500 mg Tablet PO ×2 (08:52→20:55)
[2021-04-20] MEDS: hyDROXYzine 25 mg Capsule 50 MG PO ×3 (08:52→20:54)
[2021-04-20] MEDS: gabapentin 300 mg Capsule PO ×2 (08:52→20:54)
[2021-04-20] MEDS: ondansetron 4 MG Tablet 8 MG PO (10:13)
--- NOTE | 2021-04-20 10:17 | P.PN_ITS ---
Subjective NPU Subjective: Interval history: Patient presents today reporting that she is doing okay. We discussed some of her issues with anxiety, constipation and other factors. We agreed to increase her Vistaril, start a stool softener as well as increase the frequency of her as needed Zofran. She continues to be focused on a plan to go [facility] Thursday morning and see reports he is eating fine and sleeping little better. Mental Status Exam MSE Comments: This is an overweight, white female, looking older than her stated age, with limited grooming, and adequate eye contact. No abnormal m ovements except for mild psychomotor retardation. Cooperative with exam in no acute distress. Speech was more normal rate and volume. Mood described as okay; affect congruent. Speech was decreased rate and volume. Mood described as frustrated that we have not found anything; affect congruent, and tearful. Thought process, organized. Thought content: patient denied any suicidal or homicidal ideation, there were no delusions reported or noted, patient denied any auditory or visual hallucinations. Attention, concentration, and memory appear intact but were not formally tested. She is alert and oriented times three. Insight and judgment are limited, but improving, impulse control limited. Vitals/I&O/Wt Last Vital Signs Temp 97.8 F 04/20/21 06:00 Pulse 76 04/20/21 06:00 Resp 16 04/20/21 06:00 BP 122/89 04/20/21 06:00 Pulse Ox 95 04/20/21 06:00 A&P Additional A&P Information (1) Depression: (2) PTSD (post-traumatic stress disorder): (3) Suicidal ideation: (4) Polypharmacy: (5) Chronic back pain: This is a 46-year-old, white female, with post-traumatic stress disorder, question of opioid use disorder, and significant psychosocial stressors, who presents reporting lethality in relation to her most recent challenge of conflict with her . RECOMMENDATION AND PLAN: 1. Continue current medication. Increase Vistaril to 50 mg p.o. 3 times daily. 2. Encourage individual, group, and milieu therapy. 3. Continue q-15 minute checks for safety. 4. Encourage sober living treatment after discharge, at the highest level of care, to which she is willing to commit. 5. Plan for discharge to [facility] on Thursday.. Involuntary Hold Information 96 Hour Hold: 96 Hour Involuntary Admission: No Attestations NPU Medical Necessity Statement*: Inpatient hospitalization is medically necessary and the clinically appropriate intervention, at this time. We will monitor medications and make changes as indicated. Patient will be in the hospital for 1-3 days. Coding Level of Care Code Acute Water Treatment Operator for [facility]
[2021-04-20] MEDS: docusate sodium 100 mg Capsule 200 MG PO (10:40)
[2021-04-20 14:00] VITALS: BP 114/87; PULSE 94; RESP 18; TEMP 36.2; O2SAT 96
[2021-04-20] MEDS: diphenhydrAMINE 25 mg Capsule 50 MG PO (17:19)
[2021-04-20 20:37] VITALS: BP 141/85; PULSE 89; RESP 20; TEMP 36.8; O2SAT 94
[2021-04-20] MEDS: quetiapine 300 mg Tablet 450 MG PO (20:54)
[2021-04-20] MEDS: prazosin 1 mg Capsule 2 MG PO (20:57)
[2021-04-21] MEDS: baclofen 10 mg Tablet PO ×3 (02:38→12:59)
[2021-04-21] MEDS: levothyroxine 150 mcg Tablet PO (05:12)
[2021-04-21] MEDS: levothyroxine 100 mcg Tablet PO (05:12)
[2021-04-21 06:00] VITALS: BP 90/61; PULSE 93; RESP 16; TEMP 36.9; O2SAT 95; BMI 30.9
[2021-04-21] MEDS: ibuprofen 800 mg tablet PO ×2 (08:51→15:51)
[2021-04-21] MEDS: docusate sodium 100 mg Capsule 200 MG PO (08:51)
[2021-04-21] MEDS: BuSPIRONE 10 mg Tablet 5 MG PO ×3 (08:51→21:01)
[2021-04-21] MEDS: gabapentin 300 mg Capsule PO ×2 (08:51→21:02)
[2021-04-21] MEDS: levETIRAcetam 500 mg Tablet PO ×2 (08:51→21:01)
[2021-04-21] MEDS: hyDROXYzine 25 mg Capsule 50 MG PO ×2 (08:51→21:03)
[2021-04-21] MEDS: pantoprazole DR 40 mg Tablet PO ×2 (08:51→21:01)
[2021-04-21 14:00] VITALS: BP 100/72; PULSE 86; RESP 16; TEMP 36.7; O2SAT 96
[2021-04-21] MEDS: diphenhydrAMINE 25 mg Capsule 50 MG PO (15:58)
[2021-04-21] MEDS: ondansetron 4 MG Tablet 8 MG PO (17:25)
[2021-04-21] MEDS: RIZATRIPTAN 10 MG 10 EACH PO (17:38)
--- NOTE | 2021-04-21 17:57 | P.PN_ITS ---
Subjective NPU Subjective: Interval history: Patient presents today reporting that she is grateful for the situation and the opportunity to be here. She is looking forward to possibility of going to [facility] in the morning. She reports that she is prepared to start managing her withdrawal and addiction as she wants to be reconnected with her family. She reports that she has been eating okay and sleeping better. Mental Status Exam MSE Comments: This is an overweight, white female, looking older than her stated age, with limited grooming, and adequate eye contact. No abnormal movements except for mild psychomotor retardation. Cooperative with exam in no acute distress. Speech was more normal rate and volume. Mood described as okay; affect congruent. Speech was decreased rate and volume. Mood described as better; affect congruent. Thought process, organized. Thought content: patient denied any suicidal or homicidal ideation, there were no delusions reported or noted, patient denied any auditory or visual hallucinations. Attention, concentration, and memory appear intact but were not formally tested. She is alert and oriented times three. Insight and judgment are limited, but improving, impulse control limited. Vitals/I&O/Wt Last Vital Signs Temp 97.7 F 04/21/21 20:54 Pulse 90 04/21/21 20:54 Resp 15 04/21/21 20:54 BP 130/88 04/21/21 20:54 Pulse Ox 96 04/21/21 20:54 Weight last 48 hrs Weight 81.647 kg A&P Additional A&P Information (1) Depression: (2) PTSD (post-traumatic stress disorder): (3) Suicidal ideation: (4) Polypharmacy: (5) Chronic back pain: This is a 46-year-old, white female, with post-traumatic stress disorder, question of opioid use disorder, and significant psychosocial stressors, who presents reporting lethality in relation to her most recent challenge of conflict with her . RECOMMENDATION AND PLAN: 1. Continue current medication. 2. Encourage individual, group, and milieu therapy. 3. Continue q-15 minute checks for safety. 4. Encourage sober living treatment after discharge, at the highest level of care, to which she is willing to commit. 5. Plan for [facility] Thursday.. Involuntary Hold Information 96 Hour Hold: 96 Hour Involuntary Admission: No Attestations NPU Medical Necessity Statement*: Inpatient hospitalization is medically necessary and the clinically appropriate intervention, at this time. We will monitor medications and make changes as indicated. Patient will be in the hospital for 1-2 days. Coding Level of Care Code Acute Bonded Structures Repairer for [facility]
[2021-04-21 20:54] VITALS: BP 130/88; PULSE 90; RESP 15; TEMP 36.5; O2SAT 96
[2021-04-21] MEDS: prazosin 1 mg Capsule 2 MG PO (21:01)
[2021-04-21] MEDS: quetiapine 300 mg Tablet 450 MG PO (21:02)
--- NOTE | 2021-04-21 21:05 | PC.NURSE ---
PT REQUESTED VISTARIL BE GIVEN WITH hs MEDS. vISTARIL 50MG PO GIVEN.
--- NOTE | 2021-04-21 21:38 | PC.NURSE ---
Mishel is a 46 year old female who was admitted to our unit on 04/13/21. She denies being sob, pain, SI, HI or self harm at this time. She denies having any plans in place for SI/HI. She stated her last bm was earlier today without any problems. Patient stated she'd like to get stable enough to go to rehab and get better. Encouraged patient to approach Nurses station with any questions or concerns she may have.
--- NOTE | 2021-04-21 23:00 | PC.NURSE ---
PT RESTING QUIETLY WITH BOTH EYES CLOSED
[2021-04-22] MEDS: baclofen 10 mg Tablet PO (01:45)
[2021-04-22] MEDS: diphenhydrAMINE 25 mg Capsule 50 MG PO ×2 (01:45→08:54)
--- NOTE | 2021-04-22 01:52 | PC.NURSE ---
Addendum entered by Lilian Vegas RN 04/22/21 05:16: JACK smallwood WITNESSED COUNT Original Note: pt came to desk requesting my morphine, baclofen and benadryl begining count on morphine sulfate 15mg of 42, 1 tab given, ending count of 41 obtained. whitnessed count by selin.
[2021-04-22] MEDS: levothyroxine 150 mcg Tablet PO (05:13)
[2021-04-22] MEDS: levothyroxine 100 mcg Tablet PO (05:13)
--- NOTE | 2021-04-22 05:24 | PC.NURSE ---
pt came to desk requesting her scheduled levathyroxine, i also need my Dilaudid now! . pt stated my fibromyalgia .
[2021-04-22 06:00] VITALS: BP 101/64; PULSE 88; RESP 17; TEMP 36.9; O2SAT 97
[2021-04-22] MEDS: ibuprofen 800 mg tablet PO (07:09)
[2021-04-22] MEDS: hyDROXYzine 25 mg Capsule 50 MG PO (07:10)
[2021-04-22] MEDS: BuSPIRONE 10 mg Tablet 5 MG PO (08:52)
[2021-04-22] MEDS: pantoprazole DR 40 mg Tablet PO (08:52)
[2021-04-22] MEDS: levETIRAcetam 500 mg Tablet PO (08:52)
[2021-04-22] MEDS: gabapentin 300 mg Capsule PO (08:52)
--- NOTE | 2021-04-22 08:54 | PC.NURSE ---
PRN BENADRYL 50 MG GIVEN PO PER PT REQUEST
--- NOTE | 2021-04-22 11:15 | NPU.GN ---
[facility] Topic:Alex Cai General Mood of Group: Mishel did not attend group therapy today, as she wanted to sleep.
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
[2021-04-22 12:02] VITALS: BP 101/64; PULSE 88; RESP 17; TEMP 36.9; O2SAT 97
== END 2021-04-22 12:44 | disposition home or self-care (01) | DRG 881 ==
LOC: ER 08:49 → NP 14:52
PROVIDERS: Admitting Provider Psychiatry & Neurology Psychiatry; Emergency Provider Family Medicine; PCP Family Medicine; Visit Provider Psychiatry & Neurology Psychiatry
DX: F32.A Depression, unspecified (principal); R45.851 Suicidal ideations; F41.9 Anxiety disorder, unspecified; Z81.8 Family history of other mental and behavioral disorders; G89.29 Other chronic pain; M54.9 Dorsalgia, unspecified; Z98.1 Arthrodesis status; F43.10 Post-traumatic stress disorder, unspecified; Z79.891 Long term (current) use of opiate analgesic
CPT/HCPCS: 97150; 97165; 99285; Q0162